=== PATIENT | female | born 1960 | race Caucasian/White ===

== ENCOUNTER → 2017-11-18 16:52 | Outpatient (CLI) | payer BC, SELFPAY ==
--- NOTE | 2017-11-18 16:52 | CT_ITS ---
CT Abdomen And Pelvis W/ Contrast INDICATION: LLQ PAIN, FULLNESS, HX APPY, HYSTERECTOMY, 2 BLADDER SUSPENSIONS COMPARISON: None TECHNIQUE: Axial CT imaging of the abdomen and pelvis with oral and intravenous contrast. Coronal and sagittal reformatted images. Radiation dose optimization technique applied. 100 mL of Isovue-370 given intravenously. FINDINGS: The visualized lung bases are clear. The heart size is normal. The liver, gallbladder, spleen, adrenal glands, and pancreas are unremarkable. The kidneys enhance contrast symmetrically bilaterally and are without evidence of hydronephrosis. A right sacral stimulator is noted in expected position. Oral contrast material is seen in the stomach and nondistended small bowel loops. Colon is nondistended. There is no evidence of sigmoid diverticulosis and no evidence of mesenteric inflammation. There are postsurgical clips noted in the left lower anterior abdominal wall extending to the left groin, possibly related to prior hernia repair. Mild associated fat stranding is noted. There is no abnormal enhancement or fluid collection identified. The osseous structures demonstrate L5-S1 facet arthritic changes with mild anterolisthesis and bilateral neuroforaminal narrowing. CT/Abdomen/Pelvis WITH Contrast IMPRESSION: Postsurgical changes in the left lower anterior abdominal wall with multiple surgical clips and scarring. Correlate for possible prior hernia repair. No abnormal fluid collection. No abnormal findings in the abdominal cavity. at 2118 Reported and signed by: Kajal Wesley MD Electronically Signed: Kajal Wesley MD at 20:17 EST Tel , Service support ,
== END ==
PROVIDERS: Family Provider Family Medicine; PCP Family Medicine; Visit Provider Family Medicine
DX: R10.32 Left lower quadrant pain (principal)
CPT/HCPCS: 74177; Q9967

== ENCOUNTER → 2017-12-02 16:18 | Outpatient (CLI) | payer BC, SELFPAY ==
--- NOTE | 2017-12-02 16:21 | HPBI_ITS ---
MAMMOGRAPHY - BILATERAL SCREENING REASON FOR EXAM: Female, 57 years old. Routine annual screening examination. PERTINENT HISTORY: Non-contributory. Prior right stereotactic breast biopsy. TECHNIQUE: Digital bilateral breast alexis (3D mammographic acquisition) in the CC and MLO projections. 2-D mediolateral oblique (MLO) and craniocaudad (CC) views of both breasts were obtained. CAD: Full Field Digital Mammography with Computer Added Detection was performed. COMPARISON: Comparison is made with prior study dated November 06, 2015 and June 11, 2014. FINDINGS: Breast Composition: There are scattered areas of fibroglandular density. There are no dominant masses or suspicious calcifications. A tissue clip marker is seen in the retroareolar region of the right breast. The previously seen cluster microcalcification is not seen at this time. No other significant abnormalities are identified. HPBI/SCREENING MAMM (CAD), BILAT IMPRESSION: Stable bilateral screening mammogram. Yearly follow-up mammogram recommended. (A) ASSESSMENT CATEGORY: BIRADS Category 2: Benign. A letter regarding these results will be sent to the patient by the facility within 30 days. Approximately 10% of breast cancers are not detected by mammography. A normal mammogram should not delay biopsy of a clinically suspicious abnormality. [id number] Electronically Signed: Kp Lin MD at 8:05 EST Tel [phone], Service support ,
== END ==
PROVIDERS: Family Provider Family Medicine; PCP Family Medicine; Visit Provider Family Medicine
DX: Z12.31 Encounter for screening mammogram for malignant neoplasm of breast (principal)
CPT/HCPCS: 77063; 77067

== ENCOUNTER 2017-12-24 07:28 | Day surgery (SDC) | payer BC, SELFPAY ==
[2017-12-24 07:46] VITALS: BP 178/97; PULSE 69; RESP 14; TEMP 36.6; O2SAT 98; BMI 34.3
[2017-12-24 09:10] VITALS: BP 143/101; BP 178/97; PULSE 59; RESP 16; TEMP 36.2; O2SAT 100
[2017-12-24 09:15] VITALS: BP 152/101; BP 178/97; PULSE 53; RESP 16; O2SAT 98
--- NOTE | 2017-12-24 09:16 | PCM.OPRPT ---
Problem List (1) Screen for colon cancer Status: Acute Report of Operation Date of Procedure: 12/24/17 Pre-Operative Diagnosis: Screening colon cancer Post-Operative Diagnosis: Diverticulosis Surgery/Procedure Performed:: Colonoscopy Description of Procedure: The major risks and benefits associated with the procedure were explained to the patient in detail. The patient verbalized understanding and agreement with the same. The patient was brought to the endoscopy suite. After adequate sedation was achieved, the patient was placed in the left lateral decubitus position and a digital rectal exam was performed. This examination was within normal limits. A well-lubricated colonoscope was then inserted into the rectum and advanced under direct visualization to the level of the cecum. The bowel prep was good. The cecum was identified by both visual and anatomic landmarks. A photograph was taken of the end of the cecum. The scope was then fully withdrawn while examining the color, texture, anatomy and integrity of the mucosa from the cecum to the anal canal. The findings were consistent with normal colonic mucosa. Over 6 minutes were taken to examine the colonic mucosa. Upon reaching the rectum the scope was retroflexed to examine the distal rectal vault. The scope was then straightened and was completely retrieved upon exiting the anal canal and the procedure was terminated. The patient was then transferred to the recovery room in stable condition. Recommendations for follow up: 10 years
[2017-12-24 09:20] VITALS: BP 168/81; BP 178/97; PULSE 51; RESP 16; O2SAT 98
[2017-12-24 09:25] VITALS: BP 157/84; BP 178/97; PULSE 53; RESP 16; TEMP 36.5; O2SAT 98
[2017-12-24 09:28] VITALS: BP 178/97
== END 2017-12-24 10:15 | disposition home or self-care (01) ==
LOC: EN 07:28 → AC 07:29
PROVIDERS: Family Provider Family Medicine; PCP Family Medicine; Visit Provider Surgery
PROC: 0DJD8ZZ Inspection of Lower Intestinal Tract, Via Natural or Artificial Opening Endoscopic (ICD-10-PCS; CPT 45378; principal; 2017-12-24 08:25)
DX: Z12.11 Encounter for screening for malignant neoplasm of colon (principal); K57.30 Diverticulosis of large intestine without perforation or abscess without bleeding; R10.32 Left lower quadrant pain; N36.42 Intrinsic sphincter deficiency (ISD); Z96.0 Presence of urogenital implants; M19.90 Unspecified osteoarthritis, unspecified site; G43.909 Migraine, unspecified, not intractable, without status migrainosus; Z79.899 Other long term (current) drug therapy
CPT/HCPCS: 45378; J7120

== ENCOUNTER → 2018-04-25 15:40 | Outpatient (CLI) | payer BC, SELFPAY ==
--- NOTE | 2018-04-25 15:45 | RAD_ITS ---
STUDY: X-RAY - RIGHT KNEE REASON FOR EXAM: Female, 58 years old. Knee pain TECHNIQUE: 4 view(s) of the knee. COMPARISON: None. FINDINGS: Normal visualized distal femur. Normal visualized proximal tibia and fibula. Normal proximal tibiofibular articulation. Normal medial femorotibial compartment. Normal lateral femorotibial compartment. Normal patellofemoral articulation. The soft tissue structures are unremarkable. RAD/Knee 4 or More Views IMPRESSION: Normal x-ray examination of the knee. Electronically Signed: Yadi Black MD at 7:41 EDT Tel , Service support ,
== END ==
PROVIDERS: Family Provider Family Medicine; PCP Family Medicine; Visit Provider Family Medicine
DX: M25.562 Pain in left knee (principal)
CPT/HCPCS: 73564

== ENCOUNTER → 2018-05-13 14:36 | Outpatient (CLI) | payer BC, SELFPAY | PROVIDERS: Family Provider Family Medicine; PCP Family Medicine; Visit Provider Family Medicine | DX: M79.662 Pain in left lower leg (principal) | CPT/HCPCS: 93971 ==

== ENCOUNTER → 2019-02-09 15:20 | Outpatient (CLI) | payer BC, SELFPAY ==
--- NOTE | 2019-02-09 15:24 | BI_ITS ---
MAMMOGRAPHY - BILATERAL SCREENING REASON FOR EXAM: Female, 58 years old. Routine annual screening examination. PERTINENT HISTORY: Non-contributory. Prior left stereotactic breast biopsy TECHNIQUE: Digital bilateral breast alexis (3D mammographic acquisition) in the CC and MLO projections. 2-D mediolateral oblique (MLO) and craniocaudad (CC) views of both breasts were obtained. CAD: Full Field Digital Mammography with Computer Added Detection was performed. COMPARISON: Comparison is made with prior study dated December 02, 2017 and November 14, 2015. FINDINGS: Breast Composition: There are scattered areas of fibroglandular density. There are no dominant masses or suspicious calcifications. A tissue clip marker is seen in the retroareolar region of the right breast. No other significant abnormalities are identified. There has been no significant change since the prior study. BI/SCREENING MAMM (CAD), BILAT IMPRESSION: Stable bilateral screening mammogram. Yearly follow-up mammogram recommended. (A) ASSESSMENT CATEGORY: BIRADS Category 2: Benign. A letter regarding these results will be sent to the patient by the facility within 30 days. Approximately 10% of breast cancers are not detected by mammography. A normal mammogram should not delay biopsy of a clinically suspicious abnormality. [id number] Electronically Signed: Kp Lin, at 8:43 EDT , Service support ,
== END ==
PROVIDERS: Family Provider Family Medicine; PCP Family Medicine; Referring Provider Family Medicine; Visit Provider Family Medicine
DX: Z12.31 Encounter for screening mammogram for malignant neoplasm of breast (principal)
CPT/HCPCS: 77063; 77067

== ENCOUNTER → 2019-12-02 07:23 | Outpatient (CLI) | payer OTHER, SELFPAY ==
[2019-12-02 08:25] LABS: Anion Gap 5 (5-15); BUN 20 mg/dL (7-18); BUN/Creat Ratio 24.2 RATIO (10-20); Calcium,Total 9.1 mg/dL (8.5-10.1); Chloride 106 mmol/L (98-107); Cholesterol 195 mg/dL (200); Creatinine, Serum 0.82 mg/dL (0.55-1.02); EST Glomerular Filtration Rate 75 mL/min (>60); Est Glom Filt Rate - Afr Amer 91 mL/min (>60); Glucose 92 mg/dL (74-106); High Density Lipoprotein 73 mg/dL; Potassium 4.2 mmol/L (3.5-5.1); Sodium Level 141 mmol/L (136-145); Thyroid Stim Hormone (TSH) 1.73 uIU/mL (0.358-3.74); Triglycerides 153 mg/dL; Very Low Density Lipoprotein 31 mg/dL (5-40)
== END ==
PROVIDERS: PCP Family Medicine; Referring Provider Family Medicine; Visit Provider Family Medicine
DX: Z13.220 Encounter for screening for lipoid disorders (principal); Z13.1 Encounter for screening for diabetes mellitus; N95.1 Menopausal and female climacteric states
CPT/HCPCS: 36415; 80048; 80061; 84443

== ENCOUNTER → 2020-09-11 15:49 | Outpatient (CLI) | payer OTHER, SELFPAY ==
--- NOTE | 2020-09-11 15:51 | BI_ITS ---
MAMMOGRAPHY - BILATERAL SCREENING REASON FOR EXAM: Female, 60 years old. Routine annual screening examination. PERTINENT HISTORY: Non-contributory. Remote left stereotactic breast biopsy. TECHNIQUE: Digital bilateral breast ronit (3D mammographic acquisition) in the CC and MLO projections. 2-D mediolateral oblique (MLO) and craniocaudad (CC) views of both breasts were obtained. CAD: Full Field Digital Mammography with Computer Added Detection was performed. COMPARISON: Comparison is made with prior study dated 02/09/2019 and 12/02/2017. FINDINGS: Breast Composition: The breasts are almost entirely fatty. There are no dominant masses or suspicious calcifications. A tissue clip marker is seen in the retroareolar region of the right breast. Stable small benign appearing bilateral axillary lymph nodes. No other significant abnormalities are identified. There has been no significant change since the prior study. BI/SCREEN MAMM (CAD) W/RONIT BILAT IMPRESSION: Stable bilateral screening mammogram. Yearly follow-up mammogram recommended. (A) ASSESSMENT CATEGORY: BIRADS Category 2: Benign. A letter regarding these results will be sent to the patient by the facility within 30 days. Approximately 10% of breast cancers are not detected by mammography. A normal mammogram should not delay biopsy of a clinically suspicious abnormality. [id number] Electronically Signed: Kp Lin, at 8:34 EST , Service support ,
== END ==
PROVIDERS: PCP Family Medicine; Referring Provider Family Medicine; Visit Provider Family Medicine
DX: Z12.31 Encounter for screening mammogram for malignant neoplasm of breast (principal)
CPT/HCPCS: 77063; 77067

== ENCOUNTER → 2020-12-12 08:27 | Outpatient (CLI) | payer OTHER, SELFPAY ==
[2020-12-12 10:19] LABS: Absolute Lymphocyte Count 1.91 X10^3/uL (0.83-4.51); Absolute Neutrophil Count 2.5 X10^3/uL (2.0-7.7); Basophil# 0.01 X10^3/uL; Basophil% 0.2 % (0-1); Hematocrit 44.9 % (37-47); Lymphocyte # 1.91 X10^3/ul (4.0); Lymphocyte % 39.5 % (19-41); Mean Corp Hgb Conc 31.2 g/dL (32-36); Mean Corpuscular Hgb 27.5 pg (27.0-32.0); Monocyte# 0.39 X10^3/uL; Monocyte% 8.1 % (0-10); NRBC Flagged by Analyzer 0 % (0-5); Neutrophil % 51.8 % (47-70); Platelet Count 318 K/mm3 (150-450); RBC Distribution Width CV 13.5 % (11.6-14.6); White Blood Count 4.8 K/mm3 (4.4-11.0)
[2020-12-12 10:39] LABS: ALB/GLOB Ratio 1.1 RATIO (0.9-2.4); AST(SGOT) 16 U/L (15-37); Alanine Aminotransfer ALT/SGPT 21 U/L (13-56); Albumin, Serum 3.8 g/dL (3.2-5.0); Alkaline Phosphatase 100 U/L (45-117); Anion Gap 5 (5-15); BUN 26 mg/dL (7-18); BUN/Creat Ratio 31.7 RATIO (10-20); Calcium,Total 9.3 mg/dL (8.5-10.1); Chloride 106 mmol/L (98-107); Cholesterol 169 mg/dL (200); Creatinine, Serum 0.82 mg/dL (0.55-1.02); EST Glomerular Filtration Rate 75 mL/min (>60); Est Glom Filt Rate - Afr Amer 91 mL/min (>60); Globulin 3.4 g/dL (2.2-4.2); Glucose 109 mg/dL (74-106); High Density Lipoprotein 69 mg/dL; Potassium 4.1 mmol/L (3.5-5.1); Protein, Total 7.2 g/dL (6.4-8.2); Sodium Level 142 mmol/L (136-145); Triglycerides 90 mg/dL; Very Low Density Lipoprotein 18 mg/dL (5-40)
== END ==
PROVIDERS: PCP Family Medicine; Referring Provider Family Medicine; Visit Provider Family Medicine
DX: I10 Essential (primary) hypertension (principal)
CPT/HCPCS: 36415; 80053; 80061; 85025

== ENCOUNTER → 2021-04-10 08:56 | Outpatient (CLI) | payer OTHER, SELFPAY ==
[2021-04-10 10:19] LABS: Hemoglobin A1c 5.7 % (3.8-5.6)
== END ==
PROVIDERS: PCP Family Medicine; Referring Provider Family Medicine; Visit Provider Family Medicine
DX: R73.01 Impaired fasting glucose (principal)
CPT/HCPCS: 36415; 83036

== ENCOUNTER → 2021-08-07 10:19 | Outpatient (CLI) | payer OTHER, SELFPAY ==
[2021-08-07 10:21] LABS: Bacteria 0 SEEN /hpf (None Seen); Mucous, Urine 0 SEEN /hpf (<or=2+); Red Blood Cells-Urine 0 SEEN /hpf (0-5); White Blood Cells 0 SEEN /hpf (0-5)
[2021-08-07 12:17] LABS: Absolute Lymphocyte Count 1.58 X10^3/uL (0.83-4.51); Absolute Neutrophil Count 2.3 X10^3/uL (2.0-7.7); Basophil# 0.05 X10^3/uL; Basophil% 1.1 % (0-1); Eosinophil# 0.12 X10^3/uL; Eosinophils% 2.7 % (0-5); Hematocrit 43.8 % (37-47); Hemoglobin 14.3 g/dL (12.0-15.0); Lymphocyte # 1.58 X10^3/ul (0.83-4.51); Lymphocyte % 35.8 % (19-41); Mean Corp Hgb Conc 32.6 g/dL (32-36); Mean Corpuscular Hgb 28.6 pg (27.0-32.0); Mean Corpuscular Volume 87.6 fL (81-99); Mean Platelet Vol. 8.7 fl (6.2-12.0); Monocyte# 0.38 X10^3/uL; Monocyte% 8.6 % (0-10); NRBC Flagged by Analyzer 0 % (0-5); Neutrophil # 2.26 X10^3/uL (2.7-7.7); Neutrophil % 51.3 % (47-70); Platelet Count 300 K/mm3 (150-450); RBC Distribution Width CV 14.3 % (11.6-14.6); RBC Distribution Width SD 46.4 fl (35.1-43.9); White Blood Count 4.4 K/mm3 (4.4-11.0)
[2021-08-07 12:22] LABS: Color, Urine Yellow (Yellow); Glucose, Dipstick Normal (Normal); Ketone-Dipstick Negative (Negative); Leukocyte Esterase-Dipstick Negative /ul (Negative); Nitrite-Dipstick Negative (Negative); Occult Blood-Urine Negative /ul (Negative); Protein-Dipstick Negative (Negative); Urine Bilirubin Dipstick Negative (Negative); Urine Clarity Sl. Cloudy (Clear); Urine Urobilinogen Normal (Normal)
[2021-08-07 12:28] LABS: Squamous Epithelial Cells - UA 0-5 SEEN /hpf (5-10)
[2021-08-07 12:38] LABS: ALB/GLOB Ratio 0.9 RATIO (0.9-2.4); AST(SGOT) 16 U/L (15-37); Alanine Aminotransfer ALT/SGPT 19 U/L (13-56); Albumin, Serum 3.7 g/dL (3.2-5.0); Alkaline Phosphatase 170 U/L (45-117); Anion Gap 7 (5-15); BUN 23 mg/dL (7-18); BUN/Creat Ratio 25.9 RATIO (10-20); Calcium,Total 8.9 mg/dL (8.5-10.1); Chloride 101 mmol/L (98-107); Cholesterol 194 mg/dL (200); Creatinine, Serum 0.89 mg/dL (0.55-1.02); EST Glomerular Filtration Rate 68 mL/min (>60); Est Glom Filt Rate - Afr Amer 83 mL/min (>60); Glucose 87 mg/dL (74-106); High Density Lipoprotein 76 mg/dL; Potassium 3.7 mmol/L (3.5-5.1); Protein, Total 7.7 g/dL (6.4-8.2); Sodium Level 140 mmol/L (136-145); Thyroid Stim Hormone (TSH) 1.33 uIU/mL (0.358-3.74); Triglycerides 74 mg/dL; Very Low Density Lipoprotein 15 mg/dL (5-40)
[2021-08-07 12:45] LABS: Vitamin D,25 Hydroxy 22.5 ng/mL
[2021-08-07 13:17] LABS: Hemoglobin A1c 5.8 % (3.8-5.6)
[2021-08-11 14:26] LABS: GGTP 9 U/L (5-55)
== END ==
PROVIDERS: PCP Family Medicine; Referring Provider Family Medicine; Visit Provider Family Medicine
DX: R74.8 Abnormal levels of other serum enzymes (principal); R73.01 Impaired fasting glucose; I10 Essential (primary) hypertension; E55.9 Vitamin D deficiency, unspecified
CPT/HCPCS: 36415; 80053; 80061; 81001; 82306; 82977; 83036; 84443; 85025

== ENCOUNTER 2021-09-29 09:45 | Outpatient (CLI) | payer OTHER, SELFPAY ==
--- NOTE | 2021-09-29 09:48 | US_ITS ---
STUDY: ABDOMINAL ULTRASOUND - left lower QUADRANT REASON FOR VISIT: Female, 61 years old LLQ TENDER TECHNIQUE: Ultrasound evaluation of the right upper quadrant was performed with real-time and static amanda-scale imaging. TECHNICAL QUALITY: Adequate. COMPARISON: None. FINDINGS: The left lower quadrant was examined by ultrasound. No sonographic and amount is seen. US/Abdomen Limited IMPRESSION: No sonographic abnormality is seen in the left lower quadrant. Electronically Signed: Kp Lin MD at 10:52 EST , Service support ,
== END 2021-09-29 23:59 | disposition short-term general hospital (02) ==
LOC: US 09:47
PROVIDERS: PCP Family Medicine; Referring Provider Family Medicine; Visit Provider Family Medicine
DX: R19.04 Left lower quadrant abdominal swelling, mass and lump (principal)
CPT/HCPCS: 76705

== ENCOUNTER 2021-10-02 07:36 | Outpatient (CLI) | payer OTHER, SELFPAY ==
--- NOTE | 2021-10-02 07:38 | BI_ITS ---
MAMMOGRAPHY - BILATERAL SCREENING REASON FOR EXAM: Female, 61 years old. Routine annual screening examination. PERTINENT HISTORY: Non-contributory. Prior left stereotactic breast biopsy. TECHNIQUE: Digital bilateral breast ronit (3D mammographic acquisition) in the CC and MLO projections. 2-D mediolateral oblique (MLO) and craniocaudad (CC) views of both breasts were obtained. CAD: Full Field Digital Mammography with Computer Added Detection was performed. COMPARISON: Comparison is made with prior examination dated 09/11/2020 and 02/09/2019. FINDINGS: Breast Composition: The breasts are almost entirely fatty. There are no dominant masses or suspicious calcifications. A tissue clip marker is seen in the retroareolar region of the right breast stable small benign-appearing bilateral axillary No other significant abnormalities are identified. There has been no significant change since the prior study. BI/SCRN MAMM (CAD)W/RONIT BILAT IMPRESSION: Stable bilateral screening mammogram. Yearly follow-up mammogram recommended. (A) ASSESSMENT CATEGORY: BIRADS Category 2: Benign. A letter regarding these results will be sent to the patient by the facility within 30 days. Approximately 10% of breast cancers are not detected by mammography. A normal mammogram should not delay biopsy of a clinically suspicious abnormality. [id number] Electronically Signed: Kp Lin MD at 8:30 EST , Service support ,
== END 2021-10-02 23:59 | disposition short-term general hospital (02) ==
LOC: OPBI 07:36
PROVIDERS: PCP Family Medicine; Referring Provider Family Medicine; Visit Provider Family Medicine
DX: Z12.31 Encounter for screening mammogram for malignant neoplasm of breast (principal)
CPT/HCPCS: 77063; 77067

== ENCOUNTER 2022-01-09 09:46 | Outpatient (CLI) | payer OTHER, SELFPAY ==
[2022-01-09 11:57] LABS: Absolute Lymphocyte Count 1.46 X10^3/uL (0.83-4.51); Basophil# 0.04 X10^3/uL; Eosinophils% 4.8 % (0-5); Hemoglobin 13.7 g/dL (12.0-15.0); Lymphocyte # 1.46 X10^3/ul (0.83-4.51); Lymphocyte % 35.3 % (19-41); Mean Corp Hgb Conc 33.4 g/dL (32-36); Mean Corpuscular Hgb 28.7 pg (27.0-32.0); Mean Corpuscular Volume 85.8 fL (81-99); Mean Platelet Vol. 9.1 fl (6.2-12.0); Monocyte% 9.7 % (0-10); NRBC Flagged by Analyzer 0 % (0-5); Neutrophil # 2.03 X10^3/uL (2.7-7.7); Platelet Count 276 K/mm3 (150-450); RBC Distribution Width CV 13.4 % (11.6-14.6); Red Blood Count 4.78 M/mm3 (4.2-5.4); White Blood Count 4.1 K/mm3 (4.4-11.0)
[2022-01-09 12:16] LABS: Hemoglobin A1c 5.8 % (3.8-5.6)
[2022-01-09 12:19] LABS: Vitamin B12 388 pg/mL (211-911); Vitamin D,25 Hydroxy 36.5 ng/mL
[2022-01-09 12:26] LABS: ALB/GLOB Ratio 1.1 RATIO (0.9-2.4); AST(SGOT) 19 U/L (15-37); Alanine Aminotransfer ALT/SGPT 25 U/L (13-56); Albumin, Serum 3.7 g/dL (3.2-5.0); Alkaline Phosphatase 102 U/L (45-117); Anion Gap 5 (5-15); BUN 17 mg/dL (7-18); BUN/Creat Ratio 23.9 RATIO (10-20); Chloride 105 mmol/L (98-107); Cholesterol 155 mg/dL (200); Creatinine, Serum 0.71 mg/dL (0.55-1.02); EST Glomerular Filtration Rate 88 mL/min (>60); Est Glom Filt Rate - Afr Amer 107 mL/min (>60); Globulin 3.5 g/dL (2.2-4.2); Glucose 91 mg/dL (74-106); High Density Lipoprotein 75 mg/dL; Potassium 3.4 mmol/L (3.5-5.1); Protein, Total 7.2 g/dL (6.4-8.2); Sodium Level 141 mmol/L (136-145); T4 Free Direct 1.01 ng/dL (0.76-1.46); Thyroid Stim Hormone (TSH) 1.02 uIU/mL (0.358-3.74); Triglycerides 68 mg/dL; Very Low Density Lipoprotein 14 mg/dL (5-40)
== END 2022-01-09 23:59 | disposition home or self-care (01) ==
LOC: MFPLAB 09:48
PROVIDERS: PCP Family Medicine; Referring Provider Family Medicine; Visit Provider Family Medicine
DX: I10 Essential (primary) hypertension (principal); E55.9 Vitamin D deficiency, unspecified; R73.01 Impaired fasting glucose; R53.83 Other fatigue
CPT/HCPCS: 36415; 80053; 80061; 82306; 82607; 83036; 84439; 84443; 85025

== ENCOUNTER → 2022-04-21 | Outpatient (CLI) | payer OTHER, SELFPAY ==
[2022-04-27 10:52] LABS: HPV Reflexed? NOT INDICATED
== END | disposition home or self-care (01) ==
PROVIDERS: PCP Family Medicine; Referring Provider Family Medicine; Visit Provider Family Medicine
DX: Z12.4 Encounter for screening for malignant neoplasm of cervix (principal)
CPT/HCPCS: 88175; G0145

== ENCOUNTER → 2022-06-04 | Outpatient (CLI) | payer OTHER, SELFPAY ==
[2022-06-04 08:44] LABS: Mucous, Urine 0 SEEN /hpf (<or=2+); Red Blood Cells-Urine 0 SEEN /hpf (0-5); White Blood Cells 0 SEEN /hpf (0-5)
[2022-06-04 09:59] LABS: Color, Urine Yellow (Yellow); Glucose, Dipstick Normal (Normal); Ketone-Dipstick Negative (Negative); Leukocyte Esterase-Dipstick Negative /ul (Negative); Nitrite-Dipstick Negative (Negative); Occult Blood-Urine Negative /ul (Negative); Protein-Dipstick Negative (Negative); Urine Bilirubin Dipstick Negative (Negative); Urine Clarity Clear (Clear); Urine Urobilinogen Normal (Normal)
[2022-06-04 10:06] LABS: Absolute Lymphocyte Count 1.69 X10^3/uL (0.83-4.51); Absolute Neutrophil Count 2.1 X10^3/uL (2.0-7.7); Basophil# 0.04 X10^3/uL; Basophil% 0.9 % (0-1); Eosinophil# 0.17 X10^3/uL; Eosinophils% 3.9 % (0-5); Hematocrit 42.8 % (37-47); Lymphocyte # 1.69 X10^3/ul (0.83-4.51); Lymphocyte % 38.6 % (19-41); Mean Corp Hgb Conc 32.7 g/dL (32-36); Mean Corpuscular Hgb 28.3 pg (27.0-32.0); Mean Corpuscular Volume 86.5 fL (81-99); Mean Platelet Vol. 9.1 fl (6.2-12.0); Monocyte# 0.32 X10^3/uL; Monocyte% 7.3 % (0-10); NRBC Flagged by Analyzer 0 % (0-5); Neutrophil # 2.14 X10^3/uL (2.7-7.7); Neutrophil % 48.8 % (47-70); Platelet Count 245 K/mm3 (150-450); RBC Distribution Width CV 13.7 % (11.6-14.6); RBC Distribution Width SD 43.2 fl (35.1-43.9); Red Blood Count 4.95 M/mm3 (4.2-5.4); White Blood Count 4.4 K/mm3 (4.4-11.0)
[2022-06-04 10:12] LABS: AST(SGOT) 11 U/L (15-37); Alanine Aminotransfer ALT/SGPT 21 U/L (13-56); Albumin, Serum 3.7 g/dL (3.2-5.0); Alkaline Phosphatase 107 U/L (45-117); Anion Gap 7 (5-15); BUN 18 mg/dL (7-18); BUN/Creat Ratio 22.8 RATIO (10-20); Calcium,Total 9.2 mg/dL (8.5-10.1); Chloride 105 mmol/L (98-107); Cholesterol 176 mg/dL (200); Creatinine, Serum 0.79 mg/dL (0.55-1.02); EST Glomerular Filtration Rate 78 mL/min (>60); Est Glom Filt Rate - Afr Amer 95 mL/min (>60); Globulin 3.6 g/dL (2.2-4.2); Glucose 112 mg/dL (74-106); High Density Lipoprotein 76 mg/dL; Potassium 3.5 mmol/L (3.5-5.1); Protein, Total 7.3 g/dL (6.4-8.2); Sodium Level 140 mmol/L (136-145); Triglycerides 105 mg/dL; Very Low Density Lipoprotein 21 mg/dL (5-40)
[2022-06-04 10:14] LABS: Bacteria 1+ /hpf (None Seen); Squamous Epithelial Cells - UA 5-10 SEEN /hpf (5-10)
[2022-06-04 10:17] LABS: Vitamin D,25 Hydroxy 27.7 ng/mL
== END | disposition home or self-care (01) ==
LOC: MFPLAB 08:42
PROVIDERS: PCP Family Medicine; Referring Provider Family Medicine; Visit Provider Family Medicine
DX: I10 Essential (primary) hypertension (principal); R73.01 Impaired fasting glucose; E55.9 Vitamin D deficiency, unspecified
CPT/HCPCS: 36415; 80053; 80061; 81001; 82306; 83036; 85025

== ENCOUNTER 2022-08-17 12:10 | Outpatient (CLI) | payer OTHER, SELFPAY | END 2022-08-17 23:59 | disposition home or self-care (01) | LOC: LABSPEC 12:13 | PROVIDERS: PCP Family Medicine; Visit Provider Family Medicine | DX: N39.0 Urinary tract infection, site not specified (principal) | CPT/HCPCS: 87086; 87088 ==

== ENCOUNTER → 2022-09-29 | Outpatient (CLI) | payer OTHER, SELFPAY ==
[2022-09-29 09:45] LABS: Mucous, Urine 0 SEEN /hpf (<or=2+); Red Blood Cells-Urine 0 SEEN /hpf (0-5)
[2022-09-29 12:20] LABS: Absolute Lymphocyte Count 1.54 X10^3/uL (0.83-4.51); Absolute Neutrophil Count 2.5 X10^3/uL (2.0-7.7); Basophil# 0.04 X10^3/uL; Basophil% 0.9 % (0-1); Eosinophil# 0.17 X10^3/uL; Eosinophils% 3.7 % (0-5); Hematocrit 43.3 % (37-47); Hemoglobin 13.9 g/dL (12.0-15.0); Lymphocyte # 1.54 X10^3/ul (0.83-4.51); Lymphocyte % 33.3 % (19-41); Mean Corp Hgb Conc 32.1 g/dL (32-36); Mean Corpuscular Hgb 28.1 pg (27.0-32.0); Mean Corpuscular Volume 87.7 fL (81-99); Mean Platelet Vol. 9.1 fl (6.2-12.0); Monocyte# 0.38 X10^3/uL; Monocyte% 8.2 % (0-10); NRBC Flagged by Analyzer 0 % (0-5); Neutrophil # 2.49 X10^3/uL (2.7-7.7); Neutrophil % 53.7 % (47-70); Platelet Count 254 K/mm3 (150-450); RBC Distribution Width SD 45.1 fl (35.1-43.9); Red Blood Count 4.94 M/mm3 (4.2-5.4); White Blood Count 4.6 K/mm3 (4.4-11.0)
[2022-09-29 12:22] LABS: Glucose, Dipstick Normal (Normal); Ketone-Dipstick Negative (Negative); Leukocyte Esterase-Dipstick 25 /ul (Negative); Nitrite-Dipstick Negative (Negative); Occult Blood-Urine Negative /ul (Negative); Protein-Dipstick Negative (Negative); Specific Gravity, Urine 1.025 (1.002-1.030); Urine Bilirubin Dipstick Negative (Negative); Urine Urobilinogen Normal (Normal)
[2022-09-29 12:23] LABS: Bacteria 1+ /hpf (None Seen); Color, Urine Yellow (Yellow); Squamous Epithelial Cells - UA 0-5 SEEN /hpf (5-10); Urine Clarity Clear (Clear); White Blood Cells 10-25 SEEN /hpf (0-5)
[2022-09-29 12:43] LABS: Vitamin D,25 Hydroxy 31.5 ng/mL
[2022-09-29 12:50] LABS: ALB/GLOB Ratio 1.3 RATIO (0.9-2.4); AST(SGOT) 14 U/L (15-37); Alanine Aminotransfer ALT/SGPT 22 U/L (13-56); Albumin, Serum 3.8 g/dL (3.2-5.0); Alkaline Phosphatase 120 U/L (45-117); Anion Gap 6 (5-15); BUN 30 mg/dL (7-18); BUN/Creat Ratio 36.3 RATIO (10-20); Calcium,Total 9.1 mg/dL (8.5-10.1); Chloride 105 mmol/L (98-107); Cholesterol 221 mg/dL (200); Creatinine, Serum 0.83 mg/dL (0.55-1.02); EST Glomerular Filtration Rate 74 mL/min (>60); Est Glom Filt Rate - Afr Amer 90 mL/min (>60); Glucose 106 mg/dL (74-106); High Density Lipoprotein 69 mg/dL; Potassium 4.3 mmol/L (3.5-5.1); Protein, Total 6.8 g/dL (6.4-8.2); Sodium Level 140 mmol/L (136-145); Thyroid Stim Hormone (TSH) 2.09 uIU/mL (0.358-3.74); Triglycerides 201 mg/dL; Very Low Density Lipoprotein 40 mg/dL (5-40)
== END | disposition home or self-care (01) ==
LOC: MFPLAB 09:42
PROVIDERS: PCP Family Medicine; Referring Provider Family Medicine; Visit Provider Family Medicine
DX: I10 Essential (primary) hypertension (principal); R73.01 Impaired fasting glucose; E55.9 Vitamin D deficiency, unspecified
CPT/HCPCS: 36415; 80053; 80061; 81001; 82306; 83036; 84443; 85025

== ENCOUNTER 2023-04-07 06:28 | Day surgery (SDC) | payer OTHER, SELFPAY ==
[2023-04-07] VITALS (8 sets, daily range): BP systolic 112–146; BP diastolic 72–98; PULSE 57–68; RESP 16–18; TEMP 36.3–36.7; O2SAT 91–98; BMI 37.0
[2023-04-07] MEDS: Lactated Ringers 1,000 ML 15 ML IV (07:20)
--- NOTE | 2023-04-07 07:52 | PCM.HP.STD ---
HPI - General HPI Narrative YANCI RHODES, is a 63 F who presents for stage II interstim therapy PFSH Medical History (Updated 03/31/23 @ 09:20 by Francia Velasquez) Alcohol use Hypertension Intrinsic (urethral) sphincter deficiency (ISD) Migraine headache Non-smoker Osteoarthritis Post-menopausal Shortness of breath on exertion Wears glasses Home Medications dmthumqoyu-gvttlub-pughbisg 50 mg-325 mg-40 mg capsule 1 ea PO Q4H PRN migraines 09/10/17 [History Last Taken 04/06/23] cholecalciferol (vitamin D3) 125 mcg (5,000 unit) capsule 5,000 unit PO DAILY 12/22/17 [History Last Taken 04/06/23] hydrochlorothiazide 25 mg tablet 25 mg PO DAILY 03/31/23 [History Last Taken Unknown] oxyBUTYnin chloride 10 mg PO QHS 03/31/23 [History Last Taken 04/06/23] ciprofloxacin HCl 250 mg tablet 250 mg PO BID #10 tabs 04/07/23 [Rx Last Taken Unknown] oxycodone 5 mg capsule 5 mg PO Q6H PRN pain 3 days #12 caps 04/07/23 [Rx Last Taken Unknown] Allergy/AdvReac Type Severity Reaction Status Date / Time amoxicillin Allergy Hives Verified 03/31/23 09:11 Penicillins Allergy Hives Verified 03/31/23 09:11 hydrocodone [From Vicodin] AdvReac Other Verified 03/31/23 09:11 Family History Father Hypertension Mother Hypertension Surgical History (Updated 03/31/23 @ 09:20 by Francia Velasquez) Hx of colonoscopy S/P bladder repair S/P carpal tunnel release S/P hernia repair S/P hysterectomy S/P tubal ligation Social History (Updated 01/20/18 @ 09:[address] Stanton Lynn MD) Smoking Status: Never smoker Vital Signs Vital Signs Vital Signs: 04/07/23 07:12 04/07/23 07:12 Temperature 98.0 F Temperature Source Temporal Pulse Rate 68 Respiratory Rate 16 Respiratory Pattern Normal Blood Pressure 129/98 H Blood Pressure Mean 108 Blood Pressure Source Monitor Blood Pressure Position Semi-Fowlers Blood Pressure Location Right Arm Pulse Ox 95 Oxygen Delivery Method Room Air Weight Weight: 92 kg Body Mass Index (BMI) 37.0
--- NOTE | 2023-04-07 07:53 | DCINST_ITS ---
Discharge Instructions Diet Discharge Diet: No restrictions Activity Discharge Activity: Return to Normal Activity Dressing / Incision Cleanse incision/area with: Keep Dressing Clean & Dry Follow Up Care Please Follow Up With: Drake Thomas MD When: 3 - 4 weeks Test Results: Test results from this visit will be discussed in further detail at your follow- up appointment, if applicable. Discharge Plan Admission Primary Reason for Your Visit: Stage II interstim therapy Attending Provider: Drake Thomas Primary Care Provider: Raffy Rhodes Discharge Orders/Prescriptions Prescriptions: New ciprofloxacin HCl 250 mg tablet 250 mg PO BID Qty: 10 0RF oxycodone 5 mg capsule 5 mg PO Q6H PRN (Reason: pain) 3 Days Qty: 12 0RF Continued aqsdrsidou-fmxzvjb-xghcovxx 1 EACH capsule 1 ea PO Q4H PRN (Reason: migraines) cholecalciferol (vitamin D3) 5,000 UNIT capsule 5,000 unit PO DAILY hydrochlorothiazide 25 mg tablet 25 mg PO DAILY oxyBUTYnin chloride 10 mg PO QHS Referrals / Follow Up: Raffy Rhodes MD [Primary Care Provider] - Disposition Disposition (needs filled in before D/C Order can be placed): Home, Self Care
[2023-04-07] MEDS: Lidocaine 1% (30 ml sdv) 30 ML Vial (08:26)
--- NOTE | 2023-04-07 08:34 | PCM.OPRPT ---
Report of Operation Date of Procedure: 04/07/23 Pre-Operative Diagnosis: Urge incontinence Post-Operative Diagnosis: The same Surgery/Procedure Performed:: Stage II interstim therapy Description of Surgical Findings:: The patient presents to the operating room for placement of stage II interstim therapuy therapy. Patient's battery from the prior placement had worn out and on checking it in interrogating with the device. Battery life had ended so today we plan to replace the generator with a stage II implant. The patient understands these is no guarantees that in the future the InterStim therapy will keep working to the patient's satisfaction and its always possible and it may need to have a surgical revision, change in implant, possible revision or removal of implant. We also talk about the risks of pain with stimulation, bleeding and infection or any injury to nerves or bony structures and the tailbone area. After reviewing all this with the patient in the preoperative area she signed the consent form and we proceeded with stage II interstim therapy implant. Patient was brought back to the operating room and placed supine on the table and then transferred to facedown the table and underwent sedation with comfort hugging a pillow. Patient's lower back was prepped and draped in usual sterile fashion, I then palpated the bony landmarks identify the tailbone the sacrum and the pocket area was identified where the lead business analyst would be implanted and also the lead. The temporary lead was then cut off from the Bluetooth device. We made an incision over the pocket and remove the temporary extension from the permanent lead and the suture that was holding the temporary extension was removed. The end of the permanent lead was inspected and there was no signs of any damage and was cleaned thoroughly. We then brought over the generator from the kit. After this was confirmed then pocket opened up to allow for the placement of the generator and the patient's lateral side. Then the generator was opened and I made sure I cleaned the lead completely I attached the lead to the generator use the screwdriver provided in the kit to then secure the bolt secure the lead to the generator prior to doing this again checked the lead 0, 1, 2, 3 and there was still good stimulation at all sites. I then placed the lead into the generator and the generator was put into the pocket that was created. I made sure that the generator was placed with InterStim labeling side up and was oriented appropriately. I then checked for impedance using the [employer] rep had the device checked in the impedance was normal with no abnormal impedance and all leads in all 4-lead sites were programmed and responded normally. The generator was then programmed to ensure good proper stimulation of the InterStim device this was done in the operating room, after complex programming was completed we finished with fluoroscopy I then closed the insertion site with subcuticular stitches and Steri-Strips and bandages and then closed the pocket with subcuticular stitches and Steri-Strips and bandages. The patient's anesthetic was reversed patient was taken back to the recovery room in stable condition and further training and education will be given to the patient regarding how to use the new InterStim therapy. CPT codes: 70604 - Batterry Generator placement Surgeon: Drake Thomas Type of Anesthesia: General Admit VTE Documentation VTE Present on Admission: No VTE Mechan Device Prophylaxis: SCD's VTE Pharm Prophylaxis ordered?: No
== END 2023-04-07 10:12 | disposition home or self-care (01) ==
LOC: SDC 06:28 → AC 06:30
PROVIDERS: PCP Family Medicine; Referring Provider Urology; Visit Provider Urology
PROC: (CPT 64590; principal; 2023-04-07 07:50)
DX: Z45.42 Encounter for adjustment and management of neurostimulator (principal); N39.41 Urge incontinence; R35.0 Frequency of micturition; I10 Essential (primary) hypertension; Z79.899 Other long term (current) drug therapy
CPT/HCPCS: 64590; 00300; J7120; C1767; J2405

== ENCOUNTER → 2023-04-30 | Outpatient (CLI) | payer OTHER, SELFPAY ==
--- NOTE | 2023-04-30 13:39 | BI_ITS ---
MAMMOGRAPHY - BILATERAL SCREENING REASON FOR EXAM: Female, 63 years old. Routine annual screening examination. PERTINENT HISTORY: Non-contributory. History of prior left stereotactic breast biopsy. TECHNIQUE: Digital bilateral breast ronit (3D mammographic acquisition) in the CC and MLO projections. 2-D mediolateral oblique (MLO) and craniocaudad (CC) views of both breasts were obtained. CAD: Full Field Digital Mammography with Computer Added Detection was performed. COMPARISON: Comparison is made with prior study dated October 02, 2021 and September 11, 2020. FINDINGS: Breast Composition: The breasts are almost entirely fatty. There are no dominant masses or suspicious calcifications. A tissue clip marker is once again seen in the retroareolar region of the right breast. Stable small benign appearing bilateral axillary nodes. No other significant abnormalities are identified. There has been no significant change since the prior study. BI/SCRN MAMM (CAD)W/ORNIT BILAT IMPRESSION: Stable bilateral screening mammogram. Yearly follow-up mammogram recommended. (A) ASSESSMENT CATEGORY: BIRADS Category 2: Benign. A letter regarding these results will be sent to the patient by the facility within 30 days. Approximately 10% of breast cancers are not detected by mammography. A normal mammogram should not delay biopsy of a clinically suspicious abnormality. [id number] Electronically Signed: Kp Lin MD at 14:39 EDT ,
== END | disposition home or self-care (01) ==
LOC: OPBI 13:38
PROVIDERS: PCP Family Medicine; Referring Provider Family Medicine; Visit Provider Family Medicine
DX: Z12.31 Encounter for screening mammogram for malignant neoplasm of breast (principal)
CPT/HCPCS: 77063; 77067

== ENCOUNTER 2023-05-18 09:57 | Outpatient (RCR) | payer OTHER, SELFPAY | END 2023-05-27 23:59 | LOC: NS 09:57 | PROVIDERS: PCP Family Medicine; Visit Provider Nurse Practitioner Family | DX: Z71.3 Dietary counseling and surveillance (principal); E66.9 Obesity, unspecified; Z68.36 Body mass index [BMI] 36.0-36.9, adult; I10 Essential (primary) hypertension; E55.9 Vitamin D deficiency, unspecified | CPT/HCPCS: 97802 ==

== ENCOUNTER 2023-06-16 11:30 | Outpatient (RCR) | payer OTHER, SELFPAY | END 2023-06-26 23:59 | LOC: NS 11:30 | PROVIDERS: PCP Family Medicine; Visit Provider Nurse Practitioner Family | DX: E66.9 Obesity, unspecified (principal); Z68.36 Body mass index [BMI] 36.0-36.9, adult | CPT/HCPCS: 97803 ==

== ENCOUNTER 2023-07-20 08:30 | Outpatient (RCR) | payer OTHER, SELFPAY | END 2023-07-27 23:59 | LOC: NS 08:30 | PROVIDERS: PCP Family Medicine; Referring Provider Nurse Practitioner Family; Visit Provider Nurse Practitioner Family | DX: Z71.3 Dietary counseling and surveillance (principal); E66.9 Obesity, unspecified; Z68.36 Body mass index [BMI] 36.0-36.9, adult; E55.9 Vitamin D deficiency, unspecified; I10 Essential (primary) hypertension | CPT/HCPCS: 97803 ==

== ENCOUNTER 2023-08-03 09:18 | Outpatient (RCR) | payer OTHER, SELFPAY | END 2023-08-26 23:59 | LOC: NS 09:18 | PROVIDERS: PCP Family Medicine; Referring Provider Nurse Practitioner Family; Visit Provider Nurse Practitioner Family | DX: Z71.3 Dietary counseling and surveillance (principal); E66.9 Obesity, unspecified; Z68.36 Body mass index [BMI] 36.0-36.9, adult; I10 Essential (primary) hypertension; E55.9 Vitamin D deficiency, unspecified | CPT/HCPCS: 97803 ==

== ENCOUNTER → 2023-08-09 | Outpatient (CLI) | payer OTHER, SELFPAY ==
[2023-08-09 14:20] LABS: Mucous, Urine 0 SEEN /hpf (<or=2+)
[2023-08-09 18:29] LABS: Color, Urine Yellow (Yellow); Glucose, Dipstick Normal (Normal); Ketone-Dipstick Negative (Negative); Leukocyte Esterase-Dipstick 100 /ul (Negative); Nitrite-Dipstick Negative (Negative); Occult Blood-Urine 10 /ul (Negative); Protein-Dipstick 15 mg/dl (Negative); Urine Bilirubin Dipstick Negative (Negative); Urine Clarity Sl. Cloudy (Clear); Urine Urobilinogen Normal (Normal); Urine pH 6.5 (5.0 - 8.0)
[2023-08-09 18:40] LABS: Squamous Epithelial Cells - UA 10-25 SEEN /hpf (5-10)
[2023-08-09 18:41] LABS: Bacteria 1+ /hpf (None Seen); Red Blood Cells-Urine 0-5 SEEN /hpf (0-5); White Blood Cells 10-25 SEEN /hpf (0-5)
== END | disposition home or self-care (01) ==
PROVIDERS: PCP Family Medicine; Visit Provider Family Medicine
DX: N39.0 Urinary tract infection, site not specified (principal)
CPT/HCPCS: 81001; 87086; 87088

== ENCOUNTER → 2023-08-17 | Outpatient (CLI) | payer OTHER, SELFPAY ==
--- NOTE | 2023-08-17 09:10 | RAD_ITS ---
STUDY: X-RAY - LEFT WRIST REASON FOR EXAM: Female, 63 years old. Wrist pain. TECHNIQUE: 3 views of the left wrist were obtained. COMPARISON: None. FINDINGS: Normal visualized distal radius and ulna. Normal radiocarpal articulation. Normal distal radioulnar articulation. Intact carpal bones. There is mild triscaphe arthrosis. There is moderate to severe degenerative arthrosis at the first CMC joint. Normal second through fifth carpometacarpal articulations. Normal visualized metacarpal bones. The soft tissue structures are unremarkable. 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 Mild triscaphe arthrosis. No acute fracture. Electronically Signed: Puneet Cavanaugh MD at 12:53 EST ,
== END | disposition home or self-care (01) ==
LOC: MTRAD 09:08
PROVIDERS: PCP Family Medicine; Referring Provider Family Medicine; Visit Provider Family Medicine
DX: M25.532 Pain in left wrist (principal)
CPT/HCPCS: 73110

== ENCOUNTER → 2023-11-02 | Outpatient (CLI) | payer OTHER, SELFPAY ==
[2023-11-02 09:32] LABS: Mucous, Urine 0 SEEN /hpf (<or=2+); Red Blood Cells-Urine 0 SEEN /hpf (0-5)
[2023-11-02 12:06] LABS: Absolute Lymphocyte Count 1.47 X10^3/uL (0.83-4.51); Absolute Neutrophil Count 2.8 X10^3/uL (2.0-7.7); Basophil# 0.04 X10^3/uL; Basophil% 0.8 % (0-1); Eosinophil# 0.15 X10^3/uL; Eosinophils% 3.2 % (0-5); Hematocrit 41.7 % (37-47); Hemoglobin 13.8 g/dL (12.0-15.0); Lymphocyte # 1.47 X10^3/ul (0.83-4.51); Lymphocyte % 30.9 % (19-41); Mean Corp Hgb Conc 33.1 g/dL (32-36); Mean Corpuscular Hgb 28.6 pg (27.0-32.0); Mean Corpuscular Volume 86.5 fL (81-99); Monocyte# 0.34 X10^3/uL; Monocyte% 7.1 % (0-10); NRBC Flagged by Analyzer 0 % (0-5); Neutrophil # 2.75 X10^3/uL (2.7-7.7); Neutrophil % 57.8 % (47-70); Platelet Count 264 K/mm3 (150-450); RBC Distribution Width CV 13.8 % (11.6-14.6); RBC Distribution Width SD 43.3 fl (35.1-43.9); Red Blood Count 4.82 M/mm3 (4.2-5.4); White Blood Count 4.8 K/mm3 (4.4-11.0)
[2023-11-02 12:15] LABS: Color, Urine Yellow (Yellow); Glucose, Dipstick Normal (Normal); Ketone-Dipstick Negative (Negative); Leukocyte Esterase-Dipstick 25 /ul (Negative); Nitrite-Dipstick Negative (Negative); Occult Blood-Urine Negative /ul (Negative); Protein-Dipstick Negative (Negative); Urine Bilirubin Dipstick Negative (Negative); Urine Clarity Sl. Cloudy (Clear); Urine Urobilinogen Normal (Normal)
[2023-11-02 12:27] LABS: Vitamin D,25 Hydroxy 47.5 ng/mL
[2023-11-02 12:32] LABS: Bacteria RARE /hpf (None Seen); Squamous Epithelial Cells - UA 0-5 SEEN /hpf (5-10); White Blood Cells 0-5 SEEN /hpf (0-5)
[2023-11-02 13:33] LABS: ALB/GLOB Ratio 1.1 RATIO (0.9-2.4); AST(SGOT) 16 U/L (15-37); Alanine Aminotransfer ALT/SGPT 20 U/L (13-56); Albumin, Serum 3.7 g/dL (3.2-5.0); Alkaline Phosphatase 111 U/L (45-117); Anion Gap 5 (5-15); BUN 20 mg/dL (7-18); BUN/Creat Ratio 27.6 RATIO (10-20); Calcium,Total 9.5 mg/dL (8.5-10.1); Chloride 104 mmol/L (98-107); Cholesterol 180 mg/dL (200); Creatinine, Serum 0.72 mg/dL (0.55-1.02); EST Glomerular Filtration Rate 86 mL/min (>60); Est Glom Filt Rate - Afr Amer 104 mL/min (>60); Globulin 3.5 g/dL (2.2-4.2); Glucose 94 mg/dL (74-106); High Density Lipoprotein 68 mg/dL; Magnesium 2.3 mg/dL (1.6-2.6); Potassium 3.4 mmol/L (3.5-5.1); Protein, Total 7.2 g/dL (6.4-8.2); Sodium Level 136 mmol/L (136-145); Triglycerides 117 mg/dL; Very Low Density Lipoprotein 23 mg/dL (5-40)
[2023-11-02 14:07] LABS: Hemoglobin A1c 5.8 % (3.8-5.6)
== END | disposition home or self-care (01) ==
LOC: MTLAB 09:26
PROVIDERS: PCP Family Medicine; Referring Provider Family Medicine; Visit Provider Family Medicine
DX: I10 Essential (primary) hypertension (principal); E55.9 Vitamin D deficiency, unspecified; R73.01 Impaired fasting glucose
CPT/HCPCS: 36415; 80053; 80061; 81001; 82306; 83036; 83735; 85025

== ENCOUNTER → 2024-03-16 | Outpatient (CLI) | payer MEDICARE, OTHER, SELFPAY ==
[2024-03-16 09:47] LABS: Mucous, Urine 0 SEEN /hpf (<or=2+); Red Blood Cells-Urine 0 SEEN /hpf (0-5)
[2024-03-16 12:07] LABS: Absolute Lymphocyte Count 1.65 X10^3/uL (0.83-4.51); Absolute Neutrophil Count 2.7 X10^3/uL (2.0-7.7); Basophil# 0.05 X10^3/uL; Eosinophil# 0.15 X10^3/uL; Hematocrit 41.8 % (37-47); Hemoglobin 13.3 g/dL (12.0-15.0); Lymphocyte # 1.65 X10^3/ul (0.83-4.51); Lymphocyte % 32.8 % (19-41); Mean Corp Hgb Conc 31.8 g/dL (32-36); Mean Corpuscular Hgb 28.1 pg (27.0-32.0); Mean Corpuscular Volume 88.4 fL (81-99); Mean Platelet Vol. 9.1 fl (6.2-12.0); Monocyte# 0.43 X10^3/uL; Monocyte% 8.5 % (0-10); NRBC Flagged by Analyzer 0 % (0-5); Neutrophil # 2.73 X10^3/uL (2.7-7.7); Neutrophil % 54.3 % (47-70); Platelet Count 252 K/mm3 (150-450); RBC Distribution Width CV 14.5 % (11.6-14.6); RBC Distribution Width SD 46.4 fl (35.1-43.9); Red Blood Count 4.73 M/mm3 (4.2-5.4)
[2024-03-16 12:10] LABS: Glucose, Dipstick Normal (Normal); Ketone-Dipstick Negative (Negative); Leukocyte Esterase-Dipstick 100 /ul (Negative); Nitrite-Dipstick Negative (Negative); Occult Blood-Urine Negative /ul (Negative); Protein-Dipstick Negative (Negative); Specific Gravity, Urine 1.005 (1.002-1.030); Urine Bilirubin Dipstick Negative (Negative); Urine Urobilinogen Normal (Normal)
[2024-03-16 12:14] LABS: Color, Urine Straw (Yellow); Urine Clarity Clear (Clear)
[2024-03-16 12:32] LABS: Squamous Epithelial Cells - UA 0-5 SEEN /hpf (5-10)
[2024-03-16 12:33] LABS: Bacteria 1+ /hpf (None Seen); White Blood Cells 0-5 SEEN /hpf (0-5)
[2024-03-16 12:40] LABS: Vitamin D,25 Hydroxy 30.1 ng/mL
[2024-03-16 13:02] LABS: ALB/GLOB Ratio 1.1 RATIO (0.9-2.4); AST(SGOT) 28 U/L (15-37); Alanine Aminotransfer ALT/SGPT 28 U/L (13-56); Albumin, Serum 3.8 g/dL (3.2-5.0); Alkaline Phosphatase 117 U/L (45-117); Anion Gap 4 (5-15); BUN 17 mg/dL (7-18); BUN/Creat Ratio 21.4 RATIO (10-20); Calcium,Total 8.8 mg/dL (8.5-10.1); Chloride 104 mmol/L (98-107); Cholesterol 192 mg/dL (200); EST Glomerular Filtration Rate 77 mL/min (>60); Est Glom Filt Rate - Afr Amer 93 mL/min (>60); Globulin 3.5 g/dL (2.2-4.2); Glucose 92 mg/dL (74-106); High Density Lipoprotein 72 mg/dL; Potassium 3.7 mmol/L (3.5-5.1); Protein, Total 7.3 g/dL (6.4-8.2); Sodium Level 137 mmol/L (136-145); Thyroid Stim Hormone (TSH) 2.76 uIU/mL (0.358-3.74); Triglycerides 78 mg/dL; Very Low Density Lipoprotein 16 mg/dL (5-40)
[2024-03-16 13:23] LABS: Hemoglobin A1c 5.7 % (3.8-5.6)
== END | disposition home or self-care (01) ==
LOC: MFPLAB 09:45
PROVIDERS: PCP Family Medicine; Visit Provider Family Medicine
DX: I10 Essential (primary) hypertension (principal); R73.01 Impaired fasting glucose; E55.9 Vitamin D deficiency, unspecified
CPT/HCPCS: 36415; 80053; 80061; 81001; 82306; 83036; 84443; 85025

== ENCOUNTER → 2024-09-28 | Outpatient (CLI) | payer MEDICARE, OTHER, SELFPAY ==
--- NOTE | 2024-09-28 15:52 | BD_ITS ---
STUDY: DUAL ENERGY X-RAY ABSORPTIOMETRY / DXA REASON FOR EXAM: Female, 64 years old. Postmenopausal TECHNIQUE: Bone Mineral Density (BMD) measurements of lumbar spine and bilateral hips were obtained. COMPARISON: Prior study dated: 08/27/2016 FINDINGS: Lumbar Spine (L1): g/cm2 (0.982) / T-score (-0.1) / Z-score (1.5) Lumbar Spine (L4): g/cm2 (1.084) / T-score (0.2) / Z-score (2.1) Left Femur Neck: g/cm2 (0.839) / T-score (-0.1) / Z-score (1.4) Left Femoral Total: g/cm2 (1.066) / T-score (1.0) / Z-score (2.3) Right Femur Neck: g/cm2 (0.898) / T-score (0.4) / Z-score (2.0) Right Femoral Total: g/cm2 (1.095) / T-score (1.3) / Z-score (2.5) The T-Scores on the most recent prior examination were: Lumbar Spine (L1-L2): 1.6 Left Femoral Neck: 1.2 Right Femoral Neck: 1.3 BD/Dexa Bone Density Study IMPRESSION: The patient is considered normal as outlined below according to World Leonel Organization (WHO) criteria with a low fracture risk. Comparison to prior examination is limited due to data obtained on different equipment. Reference Information: The T-score is the number of standard deviations above or below the standard which is normal for young adults at their peak bone mineral density. The World Health Organization (WHO) interprets the T-scores as follows: Above -1 Normal bone density Between -1 and -2.5 Osteopenia Equal to / or below -2.5 Osteoporosis As a practical clinical guideline, osteopenia may be graded as follows: Mild -1 through -1.5 Moderate -1.6 through -2.0 Severe -2.1 through -2.4 The Z-score is the number of standard deviations above or below age-matched controls. A Z-score of less than -1.5 would be considered abnormal. References: 1. NIH Osteoporosis and Related Bone Diseases http://www.osteo.org 2. International Society for Clinical Densitometry http://www.iscd.org 3. National Osteoporosis Foundation http://www.nof.org Electronically Signed: Stu Owen DO at 10:42 EST ,
--- NOTE | 2024-09-28 15:52 | BI_ITS ---
MAMMOGRAPHY - BILATERAL SCREENING 3-D TOMOSYNTHESIS REASON FOR EXAM: Female, 64 years old. Routine screening PERTINENT HISTORY: No significant family history. TECHNIQUE: 2-D mammograms and 3-D Tomosynthesis of the breast (s) were performed. CAD was performed. COMPARISON: 10/02/2021 FINDINGS: The breast composition is almost entirely fat. Scattered benign calcifications are seen. No dense spiculated masses or suspicious microcalcifications are identified. No architectural distortion is identified. There is no skin thickening or retraction. There has been no significant change since the prior study. BI/SCRN MAMM (CAD)W/RONIT BILAT IMPRESSION: No mammographic signs of malignancy. Routine yearly mammograms recommended. ASSESSMENT CATEGORY: BIRADS Category 1: Negative. A letter regarding these results will be sent to the patient by the facility within 30 days. FOLLOW UP RECOMMENDATION: Yearly follow up mammogram recommended. (A) Approximately 10% of breast cancers are not detected by mammography. A normal mammogram should not delay biopsy of a clinically suspicious abnormality. Electronically Signed: Peng Keys MD at 8:10 EST ,
== END | disposition home or self-care (01) ==
LOC: OPBD 15:50
PROVIDERS: PCP Family Medicine; Referring Provider Family Medicine; Visit Provider Family Medicine
DX: Z12.31 Encounter for screening mammogram for malignant neoplasm of breast (principal); Z78.0 Asymptomatic menopausal state
CPT/HCPCS: 77063; 77067; 77080

== ENCOUNTER → 2025-02-21 | Outpatient (CLI) | payer MEDICARE, OTHER, SELFPAY ==
[2025-02-21 12:24] LABS: Color, Urine Yellow (Yellow); Glucose, Dipstick Normal (Normal); Ketone-Dipstick Negative (Negative); Leukocyte Esterase-Dipstick 100 /ul (Negative); Nitrite-Dipstick Negative (Negative); Occult Blood-Urine 10 /ul (Negative); Protein-Dipstick 30 mg/dl (Negative); Specific Gravity, Urine 1.025 (1.002-1.030); Urine Bilirubin Dipstick Negative (Negative); Urine Clarity Cloudy (Clear); Urine Urobilinogen Normal (Normal)
[2025-02-21 12:32] LABS: Absolute Lymphocyte Count 1.63 X10^3/uL (0.83-4.51); Absolute Neutrophil Count 2.3 X10^3/uL (2.0-7.7); Basophil# 0.04 X10^3/uL; Basophil% 0.9 % (0-1); Eosinophil# 0.17 X10^3/uL; Eosinophils% 3.8 % (0-5); Hematocrit 40.1 % (37-47); Hemoglobin 12.9 g/dL (12.0-15.0); Lymphocyte # 1.63 X10^3/ul (0.83-4.51); Lymphocyte % 36.5 % (19-41); Mean Corp Hgb Conc 32.2 g/dL (32-36); Mean Corpuscular Hgb 28.5 pg (27.0-32.0); Mean Corpuscular Volume 88.7 fL (81-99); Mean Platelet Vol. 9.2 fl (6.2-12.0); Monocyte# 0.35 X10^3/uL; Monocyte% 7.8 % (0-10); NRBC Flagged by Analyzer 0 % (0-5); Neutrophil # 2.26 X10^3/uL (2.7-7.7); Neutrophil % 50.8 % (47-70); Platelet Count 247 K/mm3 (150-450); RBC Distribution Width CV 14.5 % (11.6-14.6); Red Blood Count 4.52 M/mm3 (4.2-5.4); White Blood Count 4.5 K/mm3 (4.4-11.0)
[2025-02-21 12:54] LABS: Hemoglobin A1c 6.2 % (<=5.6)
[2025-02-21 13:35] LABS: Squamous Epithelial Cells - UA 5-10 SEEN /hpf (5-10)
[2025-02-21 13:36] LABS: Bacteria 3+ /hpf (None Seen)
[2025-02-21 13:37] LABS: White Blood Cells 10-25 SEEN /hpf (0-5)
[2025-02-21 13:38] LABS: Calcium Oxalate Crystals Ur 1+ /hpf (<or=2+); Mucous, Urine 2+ /hpf (<or=2+)
[2025-02-21 13:52] LABS: ALB/GLOB Ratio 1.5 RATIO (0.9-2.4); AST(SGOT) 19 U/L (<=31); Alanine Aminotransfer ALT/SGPT 14 U/L (<=34); Albumin, Serum 4.1 g/dL (3.4-4.8); Alkaline Phosphatase 104 U/L (35-104); Anion Gap 12 (5-15); BUN 28 mg/dL (4-19); BUN/Creat Ratio 38.4 RATIO (10-20); Calcium,Total 9.2 mg/dL (7.6-11.0); Chloride 107 mmol/L (98-108); Cholesterol 171 mg/dL (<=200); Creatinine, Serum 0.72 mg/dL (0.70-1.20); EST Glomerular Filtration Rate 93 (>60); Globulin 2.7 g/dL (2.2-4.2); Glucose 98 mg/dL (70-99); High Density Lipoprotein 65 mg/dL; Low Density Lipoprotein Calc. 86 mg/dL; Potassium 3.9 mmol/L (3.3-5.1); Protein, Total 6.8 g/dL (5.9-8.4); Red Blood Cells-Urine 0-5 SEEN /hpf (0-5); Sodium Level 144 mmol/L (133-145); Total Bilirubin 0.46 mg/dL (0.00-1.30); Triglycerides 99 mg/dL; Very Low Density Lipoprotein 20 mg/dL (5-40); Vitamin D,25 Hydroxy 61.5 ng/mL (30-100); cholesterol:hdl ratio screen 2.62
== END | disposition home or self-care (01) ==
LOC: MFPLAB 09:40
PROVIDERS: PCP Family Medicine; Referring Provider Family Medicine; Visit Provider Family Medicine
DX: I10 Essential (primary) hypertension (principal); E55.9 Vitamin D deficiency, unspecified; R73.01 Impaired fasting glucose
CPT/HCPCS: 36415; 80053; 80061; 81001; 82306; 83036; 85025

== ENCOUNTER → 2025-02-22 | Outpatient (CLI) | payer MEDICARE, OTHER, SELFPAY | END | disposition home or self-care (01) | LOC: MFPLAB 11:49 | PROVIDERS: PCP Family Medicine; Referring Provider Family Medicine; Visit Provider Family Medicine | DX: N39.0 Urinary tract infection, site not specified (principal) | CPT/HCPCS: 87077; 87086; 87088 ==

== ENCOUNTER → 2025-07-18 | Outpatient (CLI) | payer MEDICARE, OTHER, SELFPAY ==
[2025-07-18 10:14] LABS: Mucous, Urine 0 SEEN /hpf (<or=2+); Red Blood Cells-Urine 0 SEEN /hpf (0-5)
[2025-07-18 12:30] LABS: Color, Urine Yellow (Yellow); Glucose, Dipstick Normal (Normal); Ketone-Dipstick Negative (Negative); Leukocyte Esterase-Dipstick 500 /ul (Negative); Nitrite-Dipstick Negative (Negative); Occult Blood-Urine Negative /ul (Negative); Protein-Dipstick 15 mg/dl (Negative); Specific Gravity, Urine 1.015 (1.002-1.030); Urine Bilirubin Dipstick Negative (Negative)
[2025-07-18 12:32] LABS: Hematocrit 39.9 % (37-47); Hemoglobin 13.5 g/dL (12.0-15.0); Immature Granulocytes Count 0.010 X10^3/uL (0.0-0.0); Mean Corp Hgb Conc 33.8 g/dL (32-36); Mean Corpuscular Volume 85.6 fL (81-99); Mean Platelet Vol. 9.2 fl (6.2-12.0); NRBC Flagged by Analyzer 0 % (0-5); Platelet Count 259 K/mm3 (150-450); RBC Distribution Width CV 13.7 % (11.6-14.6); RBC Distribution Width SD 42.8 fl (35.1-43.9); Red Blood Count 4.66 M/mm3 (4.2-5.4); White Blood Count 5.1 K/mm3 (4.4-11.0)
[2025-07-18 13:00] LABS: Squamous Epithelial Cells - UA 5-10 SEEN /hpf (5-10)
[2025-07-18 13:29] LABS: AST(SGOT) 20 U/L (<=31); Alanine Aminotransfer ALT/SGPT 14 U/L (<=34); Albumin, Serum 4.4 g/dL (3.4-4.8); Alkaline Phosphatase 111 U/L (35-104); Anion Gap 11 (5-15); BUN 21 mg/dL (4-19); BUN/Creat Ratio 27.5 RATIO (10-20); Calcium,Total 9.8 mg/dL (7.6-11.0); Carbon Dioxide 30.0 mmol/L (21.0-32.0); Chloride 99 mmol/L (98-108); Cholesterol 193 mg/dL (<=200); Globulin 3.1 g/dL (2.2-4.2); Glucose 106 mg/dL (70-99); Low Density Lipoprotein Calc. 99 mg/dL; Magnesium 2.1 mg/dL (1.5-2.2); Potassium 3.2 mmol/L (3.3-5.1); Triglycerides 119 mg/dL; Very Low Density Lipoprotein 24 mg/dL (5-40); Vitamin D,25 Hydroxy 90.2 ng/mL (30-100); cholesterol:hdl ratio screen 2.64
== END | disposition home or self-care (01) ==
LOC: MFPLAB 10:10
PROVIDERS: PCP Family Medicine; Visit Provider Family Medicine
DX: I10 Essential (primary) hypertension (principal); R73.01 Impaired fasting glucose; E55.9 Vitamin D deficiency, unspecified
CPT/HCPCS: 36415; 80053; 80061; 81001; 82306; 83036; 83735; 85025

== ENCOUNTER → 2025-07-26 | Outpatient (CLI) | payer MEDICARE, OTHER, SELFPAY ==
--- OUTSIDE RECORDS SUMMARY | 2025-07-26 09:15 | XMS RPT_ITS | CCD ---
Author Organization [facility] Care Team Providers Care Environmental Planner Name Role Phone Meagan RICHARDS, Dr. Raffy Bustamante Primary Care Provider [phone] Meagan RICHARDS, Dr. Raffy Bustamante Attending Provider Meagan RICHARDS, Dr. Raffy Bustamante Referring Provider [phone] Raffy Rhodes Attending Unavailable Raffy Rhodes Primary Care Unavailable Raffy Rhodes Referring Unavailable Raffy Rhodes Referring Unavailable Raffy Rhodes Attending Unavailable Raffy Rhodes Primary Care Unavailable Raffy Rhodes Referring Unavailable Raffy Rhodes Attending Unavailable Raffy Rhodes Primary Care Unavailable Raffy Rhodes Attending Unavailable Raffy Rhodes Primary Care Unavailable Allergies Allergy Classification Reported Allergen(s) Allergy Type Date of Onset Reaction(s) Facility (14 sources) Amoxicillin Drug Allergy 01-18-2018 [facility] (15 sources) Penicillins; Translations: [Penicillins] Allergy to substance 01-18-2018 [facility] (9 sources) HYDROcodone Drug Allergy 03-31-2023 Other [facility] Comment on above: "DOES NOT WORK" (1 source) Amoxicillin Drug Allergy 03-31-2023 [facility] (1 source) HYDROcodone Drug Allergy 03-31-2023 [facility] Medications Current Medications Medication Drug Class(es) Dates Sig (Normalized) Sig (Original) aspirin 325 mg / butalbital 50 mg / caffeine 40 mg oral capsule (14 sources) Platelet Aggregation Inhibitor, Barbiturate, Nonsteroidal Anti-inflammatory Drug, Central Nervous System Stimulant, Methylxanthine Start: 09-10-2017 Butalbital-Aspiri n-Caffeine 1 EACH capsule Active 1 NMA PO Q4H as needed for migraines September 10, 2017 1:00am Start: 09-10-2017 Butalbital-Asp irin-Caffeine Active 1 EACH PO Q4H September 10, 2017 12:00am cholecalciferol 0.125 mg oral capsule (14 sources) Vitamin D Start: 12-22-2017 take 1 capsule by mouth once daily Cholecalciferol (Vitamin D3) 5,000 UNIT capsule Active 5000 U PO DAILY December 22, 2017 12:00am ciprofloxacin 250 mg oral tablet (20 sources) Quinolone Antimicrobial Start: 04-07-2023 take 1 tablet by mouth twice daily Ciprofloxacin Hcl 250 mg tablet Active 250 mg PO TWICE A DAY April 07, 2023 12:00am Start: 09-17-2017 End: 12-06-2017 take 1 tablet by mouth twice daily Ciprofloxacin Hcl 500 MG tablet Discontinued 500 mg PO TWICE A DAY September 17, 2017 1:00am December 06, 2017 3:46pm estradiol 0.5 mg oral tablet (5 sources) Estrogen Start: 09-10-2017 take 0.5 mg by mouth every other day Estradiol Active 0.5 MG PO EVERY OTHER DAY September 10, 2017 12:00am hydroCHLOROthiazide 25 mg oral tablet (9 sources) Thiazide Diuretic Start: 03-31-2023 take 1 tablet by mouth once daily Hydrochlorothiazide 25 mg tablet Active 25 mg PO DAILY March 31, 2023 12:00am 24 hr oxybutynin chloride 10 mg extended release oral tablet (9 sources) Cholinergic Muscarinic Antagonist Start: 03-31-2023 take 10 mg by mouth at bedtime oxyBUTYnin chloride Active 10 mg PO AT BEDTIME March 31, 2023 12:00am oxyCODONE hydrochloride 5 mg oral capsule (9 sources) Opioid Agonist Start: 04-07-2023 take 1 capsule by mouth every six hours as needed for pain Oxycodone 5 mg capsule Active 5 mg PO EVERY 6 HOURS as needed for pain 12 3 April 07, 2023 Problems Active Problems Problem Classification Problem Date Documented Da te Episodic/Chronic Essential hypertension (1 source) Essential (primary) hypertension; Translations: [Essential (primary) hypertension] Onset: 07-20-2025 Chronic Other diseases of bladder and urethra (14 sources) Urethral intrinsic sphincter deficiency; Translations: [Intrinsic sphincter deficiency (ISD)] 12-24-2017 Episodic Past or Other Problems Problem Classification Problem Date Documented Da te Episodic/Chronic Other screening for suspected conditions (not mental disorders or infectious disease) (15 sources) Patient encounter status; Translations: [Encounter for screening for malignant neoplasm of colon] Onset: 10-20-2024 12-24-2017 Episodic Urinary tract infections (1 source) Urinary tract infection, site not specified; Translations: [Urinary tract infection, site not specified] Onset: 02-27-2025 Episodic Results Test Name Value Interpretation Reference Range Facility CBC W/Diff, Automatedon 10-2 Absolute Lymph 1.43 X10 3/uL Normal 0.83-4.51 [facility] Comment on above: Order Comment: Order Date: 07/18/25 Order Info: 0184-1 - CBCD Performed By: #### L 500.4100, L500.4050, L501.5200, L100.0100, L501.9985 #### [facility] [address] [place], [address] Absolute Neut 3.1 X10 3/uL Normal 2.0-7.7 [facility] Comment on above: Order Comment: Order Date: 07/18/25 Order Info: 0184-1 - CBCD Performed By: #### L 500.4100, L500.4050, L501.5200, L100.0100, L501.9985 #### [facility] [address] [place], [address] Basophils/100 WBC (Bld) 0.6 % Normal 0-1 [facility] Comment on above: Order Comment: Order Date: 07/18/25 Order Info: 0184-1 - CBCD Performed By: #### L 500.4100, L500.4050, L501.5200, L100.0100, L501.9985 #### [facility] [address] [place], [address] Eosinophils/100 WBC (Bld) 2.5 % Normal 0-5 [facility] Comment on above: Order Comment: Order Date: 07/18/25 Order Info: 0184-1 - CBCD Performed By: #### L 500.4100, L500.4050, L501.5200, L100.0100, L501.9985 #### [facility] [address] [place], [address] Erythrocyte distribution width (RBC) [Ratio] 13.7 % Normal 11.6-14.6 [facility] Comment on above: Order Comment: Order Date: 07/18/25 Order Info: 0184-1 - CBCD Performed By: #### L 500.4100, L500.4050, L501.5200, L100.0100, L501.9985 #### [facility] [address] [place], [address] Hematocrit (Bld) [Volume fraction] 39.9 % Normal 37-47 [facility] Comment on above: Order Comment: Order Date: 07/18/25 Order Info: 0184- - CBCD Performed By: #### L 500.4100, L500.4050, L501.5200, L100.0100, L501.9985 #### [facility] [address] [place], [address] Hemoglobin (Bld) [Mass/Vol] 13.5 g/dL Normal 12.0-15.0 [facility] Comment on above: Order Comment: Order Date: 07/18/25 Order Info: 0184-1 - CBCD Performed By: #### L 500.4100, L500.4050, L501.5200, L100.0100, L501.9985 #### [facility] [address] [place], [address] IG% 0.200 Normal 0.0-0.9 [facility] Comment on above: Order Comment: Order Date: 07/18/25 Order Info: 0184-1 - CBCD Result Comment: IG% - Immature Granulocytes (promyelocytes, myelocytes and metamyelocytes) > 1% indicates that a LEFT SHIFT is Present. Performed By: #### L 500.4100, L500.4050, L501.5200, L100.0100, L501.9985 #### [facility] [address] [place], [address] Lymphocytes/100 WBC (Bld) 28.0 % Normal 19-41 [facility] Comment on above: Order Comment: Order Date: 07/18/25 Order Info: 018-1 - CBCD Performed By: #### L 500.4100, L500.4050, L501.5200, L100.0100, L501.9985 #### [facility] [address] [place], [address] MCH (RBC) [Entitic mass] 29.0 pg Normal 27.0-32.0 [facility] Comment on above: Order Comment: Order Date: 07/18/25 Order Info: 018- - CBCD Performed By: #### L 500.4100, L500.4050, L501.5200, L100.0100, L501.9985 #### [facility] [address] [place], [address] MCHC (RBC) [Mass/Vol] 33.8 g/dL Normal 32-36 [facility] Comment on above: Order Comment: Order Date: 07/18/25 Order Info: 018- - CBCD Performed By: #### L 500.4100, L500.4050, L501.5200, L100.0100, L501.9985 #### [facility] [address] [place], [address] MCV (RBC) [Entitic vol] 85.6 fL Normal 81-99 [facility] Comment on above: Order Comment: Order Date: 07/18/25 Order Info: 018-1 - CBCD Performed By: #### L 500.4100, L500.4050, L501.5200, L100.0100, L501.9985 #### [facility] [address] [place], [address] Monocytes/100 WBC (Bld) 8.4 % Normal 0-10 [facility] Comment on above: Order Comment: Order Date: 07/18/25 Order Info: 0184-1 - CBCD Performed By: #### L 500.4100, L500.4050, L501.5200, L100.0100, L501.9985 #### [facility] [address] [place], [address] Neutrophils/100 WBC (Bld) 60.3 % Normal 47-70 [facility] Comment on above: Order Comment: Order Date: 07/18/25 Order Info: 0184-1 - CBCD Performed By: #### L 500.4100, L500.4050, L501.5200, L100.0100, L501.9985 #### [facility] [address] [place], [address] Nucleated RBC (Bld) [#/Vol] 0 10*3/uL Normal 0-5 [facility] Comment on above: Order Comment: Order Date: 07/18/25 Order Info: 0184-1 - CBCD Performed By: #### L 500.4100, L500.4050, L501.5200, L100.0100, L501.9985 #### [facility] [address] [place], [address] Platelet mean volume (Bld) [Entitic vol] 9.2 fL Normal 6.2-12.0 [facility] Comment on above: Order Comment: Order Date: 07/18/25 Order Info: 0184-1 - CBCD Performed By: #### L 500.4100, L500.4050, L501.5200, L100.0100, L501.9985 #### [facility] [address] [place], [address] Platelets (Bld) [#/Vol] 259 10*3/uL Normal 150-450 [facility] Comment on above: Order Comment: Order Date: 07/18/25 Order Info: 0184-1 - CBCD Performed By: #### L 500.4100, L500.4050, L501.5200, L100.0100, L501.9985 #### [facility] [address] [place], [address] RBC (Bld) [#/Vol] 4.66 10*6/uL Normal 4.2-5.4 [facility] Comment on above: Order Comment: Order Date: 07/18/25 Order Info: 0184-1 - CBCD Performed By: #### L 500.4100, L500.4050, L501.5200, L100.0100, L501.9985 #### [facility] [address] [place], [address] RDW SD 42.8 fl Normal 35.1-43.9 [facility] Comment on above: Order Comment: Order Date: 07/18/25 Order Info: 0184-1 - CBCD Performed By: #### L 500.4100, L500.4050, L501.5200, L100.0100, L501.9985 #### [facility] [address] [place], [address] WBC (Bld) [#/Vol] 5.1 10*3/uL Normal 4.4-11.0 [facility] Comment on above: Order Comment: Order Date: 07/18/25 Order Info: 0184-1 - CBCD Performed By: #### L 500.4100, L500.4050, L501.5200, L100.0100, L501.9985 #### [facility] [address] [place], [address] Comprehensive Metabolic Prof ilon 07-18-2025 Albumin [Mass/Vol] 4.4 g/dL Normal 3.4-4.8 [facility] Comment on above: Order Comment: Order Date: 07/18/25 Order Info: 0786-1 - CMP Order Info: [id number] - LIPID Order Info: [id number] - MG Performed By: #### L 500.4100, L500.4050, L501.5200, L100.0100, L501.9985 #### [facility] [address] [place], [address] Albumin/Globulin [Mass ratio] 1.4 {ratio} Normal 0.9-2.4 [facility] Comment on above: Order Comment: Order Date: 07/18/25 Order Info: 0786-1 - CMP Order Info: [id number] - LIPID Order Info: [id number] - MG Performed By: #### L 500.4100, L500.4050, L501.5200, L100.0100, L501.9985 #### [facility] [address] [place], [address] ALK PHOS 111 U/L High 35-104 [facility] Comment on above: Order Comment: Order Date: 07/18/25 Order Info: 0786-1 - CMP Order Info: [id number] - LIPID Order Info: [id number] - MG Performed By: #### L 500.4100, L500.4050, L501.5200, L100.0100, L501.9985 #### [facility] [address] [place], [address] ALT [Catalytic activity/Vol] 14 U/L Normal <=34 [facility] Comment on above: Order Comment: Order Date: 07/18/25 Order Info: 0786-1 - CMP Order Info: [id number] - LIPID Order Info: [id number] - MG Performed By: #### L 500.4100, L500.4050, L501.5200, L100.0100, L501.9985 #### [facility] [address] [place], [address] AST [Catalytic activity/Vol] 20 U/L Normal <=31 [facility] Comment on above: Order Comment: Order Date: 07/18/25 Order Info: 0786-1 - CMP Order Info: [id number] - LIPID Order Info: [id number] - MG Performed By: #### L 500.4100, L500.4050, L501.5200, L100.0100, L501.9985 #### [facility] [address] [place], [address] Bilirubin [Mass/Vol] 0.81 mg/dL Normal 0.00-1.30 [facility] Comment on above: Order Comment: Order Date: 07/18/25 Order Info: 0786- - CMP Order Info: [id number] - LIPID Order Info: [id number] - MG Performed By: #### L 500.4100, L500.4050, L501.5200, L100.0100, L501.9985 #### [facility] [address] [place], [address] BUN/CRE 27.5 RATIO High 10-20 [facility] Comment on above: Order Comment: Order Date: 07/18/25 Order Info: 0786- - CMP Order Info: [id number] - LIPID Order Info: [id number] - MG Performed By: #### L 500.4100, L500.4050, L501.5200, L100.0100, L501.9985 #### [facility] [address] [place], [address] Calcium [Mass/Vol] 9.8 mg/dL Normal 7.6-11.0 [facility] Comment on above: Order Comment: Order Date: 07/18/25 Order Info: 0786-1 - CMP Order Info: [id number] - LIPID Order Info: [id number] - MG Performed By: #### L 500.4100, L500.4050, L501.5200, L100.0100, L501.9985 #### [facility] [address] [place], [address] Chloride [Moles/Vol] 99 mmol/L Normal 98-108 [facility] Comment on above: Order Comment: Order Date: 07/18/25 Order Info: 0786- - CMP Order Info: [id number] - LIPID Order Info: [id number] - MG Performed By: #### L 500.4100, L500.4050, L501.5200, L100.0100, L501.9985 #### [facility] [address] [place], [address] CO2 [Moles/Vol] 30.0 mmol/L Normal 21.0-32.0 [facility] Comment on above: Order Comment: Order Date: 07/18/25 Order Info: 785- - CMP Order Info: [id number] - LIPID Order Info: [id number] - MG Performed By: #### L 500.4100, L500.4050, L501.5200, L100.0100, L501.9985 #### [facility] [address] [place], [address] Creatinine [Mass/Vol] 0.77 mg/dL Normal 0.70-1.20 [facility] Comment on above: Order Comment: Order Date: 07/18/25 Order Info: 07- - CMP Order Info: [id number] - LIPID Order Info: [id number] - MG Performed By: #### L 500.4100, L500.4050, L501.5200, L100.0100, L501.9985 #### [facility] [address] [place], [address] GAP 11 Normal 5-15 [facility] Comment on above: Order Comment: Order Date: 07/18/25 Order Info: 0786- - CMP Order Info: [id number] - LIPID Order Info: [id number] - MG Performed By: #### L 500.4100, L500.4050, L501.5200, L100.0100, L501.9985 #### [facility] [address] [place], [address] GFR/1.73 sq M.predicted among non-blacks MDRD (S/P/Bld) [Vol rate/Area] 85 mL/min/{1.73_m2} Normal >60 [facility] Comment on above: Order Comment: Order Date: 07/18/25 Order Info: 0786-1 - CMP Order Info: [id number] - LIPID Order Info: [id number] - MG Result Comment: mL/m in/1.73m2 CKD-EPI Creatinine Equation (2020) Performed By: #### L 500.4100, L500.4050, L501.5200, L100.0100, L501.9985 #### [facility] [address] [place], [address] Globulin (S) [Mass/Vol] 3.1 g/dL Normal 2.2-4.2 [facility] Comment on above: Order Comment: Order Date: 07/18/25 Order Info: 0786- - CMP Order Info: [id number] - LIPID Order Info: [id number] - MG Performed By: #### L 500.4100, L500.4050, L501.5200, L100.0100, L501.9985 #### [facility] [address] [place], [address] Glucose [Mass/Vol] 106 mg/dL High 70-99 [facility] Comment on above: Order Comment: Order Date: 07/18/25 Order Info: 0786-1 - CMP Order Info: [id number] - LIPID Order Info: [id number] - MG Performed By: #### L 500.4100, L500.4050, L501.5200, L100.0100, L501.9985 #### [facility] [address] [place], [address] Potassium [Moles/Vol] 3.2 mmol/L Low 3.3-5.1 [facility] Comment on above: Order Comment: Order Date: 07/18/25 Order Info: 0786-1 - CMP Order Info: [id number] - LIPID Order Info: [id number] - MG Performed By: #### L 500.4100, L500.4050, L501.5200, L100.0100, L501.9985 #### [facility] [address] [place], [address] Sodium [Moles/Vol] 140 mmol/L Normal 133-145 [facility] Comment on above: Order Comment: Order Date: 07/18/25 Order Info: 0786-1 - CMP Order Info: [id number] - LIPID Order Info: [id number] - MG Performed By: #### L 500.4100, L500.4050, L501.5200, L100.0100, L501.9985 #### [facility] [address] [place], [address] T PROT 7.4 g/dL Normal 5.9-8.4 [facility] Comment on above: Order Comment: Order Date: 07/18/25 Order Info: 0786-1 - CMP Order Info: [id number] - LIPID Order Info: [id number] - MG Performed By: #### L 500.4100, L500.4050, L501.5200, L100.0100, L501.9985 #### [facility] [address] [place], [address] Urea nitrogen [Mass/Vol] 21 mg/dL High 4-19 [facility] Comment on above: Order Comment: Order Date: 07/18/25 Order Info: 0786-1 - CMP Order Info: [id number] - LIPID Order Info: [id number] - MG Performed By: #### L 500.4100, L500.4050, L501.5200, L100.0100, L501.9985 #### [facility] [address] [place], [address] Hemoglobin A1con 07-18-2025 HbA1c (Bld) [Mass fraction] 6.1 % High <=5.6 [facility] Comment on above: Order Comment: Order Date: 07/18/25 Order Info: [id number] - A1C Result Comment: Norm al < 5.7 % Prediabetic 5.7 - 6.4 % Diabetic >or= 6.5 % Please note range changes. Performed By: #### L 500.4100, L500.4050, L501.5200, L100.0100, L501.9985 #### [facility] [address] [place], [address] Lipid Profileon 07-18-2025 CHOL:HDL 2.64 Normal [facility] Comment on above: Order Comment: Order Date: 07/18/25 Order Info: 0786-1 - CMP Order Info: [id number] - LIPID Order Info: [id number] - MG Performed By: #### L 500.4100, L500.4050, L501.5200, L100.0100, L501.9985 #### [facility] [address] [place], [address] Cholesterol [Mass/Vol] 193 mg/dL Normal <=200 [facility] Comment on above: Order Comment: Order Date: 07/18/25 Order Info: 0786-1 - CMP Order Info: [id number] - LIPID Order Info: [id number] - MG Result Comment: Chol esterol level, Desirable <200 mg/dL Borderline high cholesterol 200-239 mg/dL High cholesterol >=240 mg/dL Recommendations of the NCEP Adult Treatment Panel for the following risk-cutoff thresholds for the [place] population. Performed By: #### L 500.4100, L500.4050, L501.5200, L100.0100, L501.9985 #### [facility] [address] [place], [address] Cholesterol in HDL [Mass/Vol] 73 mg/dL Normal [facility] Comment on above: Order Comment: Order Date: 07/18/25 Order Info: 0786-1 - CMP Order Info: [id number] - LIPID Order Info: [id number] - MG Result Comment: Liz[place] onal Cholesterol Education Program (NCEP) guidelines: <40 mg/dL: Low HDL-cholesterol (major risk factor for CHD) >= 60 mg/dL: High HDL-cholesterol (negative risk factor for CHD) HDL-cholesterol is affected by a number of factors, e.g. smoking, exercise, hormones, sex and age. Performed By: #### L 500.4100, L500.4050, L501.5200, L100.0100, L501.9985 #### [facility] [address] [place], [address] Cholesterol in LDL [Mass/Vol] 99 mg/dL Normal [facility] Comment on above: Order Comment: Order Date: 07/18/25 Order Info: 0786-1 - CMP Order Info: [id number] - LIPID Order Info: [id number] - MG Result Comment: Bord fiuxgv=570-598 mg/dL Higher Qzgq=877 mg/dL or greater Solorzano Equation 2020 for LDL-C Performed By: #### L 500.4100, L500.4050, L501.5200, L100.0100, L501.9985 #### [facility] [address] [place], [address] Cholesterol in VLDL [Mass/Vol] 24 mg/dL Normal 5-40 [facility] Comment on above: Order Comment: Order Date: 07/18/25 Order Info: 0786-1 - CMP Order Info: [id number] - LIPID Order Info: [id number] - MG Performed By: #### L 500.4100, L500.4050, L501.5200, L100.0100, L501.9985 #### [facility] [address] [place], [address] Triglyceride [Mass/Vol] 119 mg/dL Normal [facility] Comment on above: Order Comment: Order Date: 07/18/25 Order Info: 0786-1 - CMP Order Info: [id number] - LIPID Order Info: [id number] - MG Result Comment: The drugs N-Acetylcysteine and Metamizole may falsely depress this assay. Normal range: <150 mg/dL Borderline High: 150-199 mg/dL High: 200-499 mg/dL Very High: >500 mg/dL Performed By: #### L 500.4100, L500.4050, L501.5200, L100.0100, L501.9985 #### [facility] [address] [place], [address] Magnesiumon 07-18-2025 Magnesium [Mass/Vol] 2.1 mg/dL Normal 1.5-2.2 [facility] Comment on above: Order Comment: Order Date: 07/18/25 Order Info: 0786-1 - CMP Order Info: [id number] - LIPID Order Info: [id number] - MG Performed By: #### L 500.4100, L500.4050, L501.5200, L100.0100, L501.9985 #### [facility] [address] [place], [address] Urinalysis, Completeon 07-18 BACTERIA 3+ /hpf Normal None Seen [facility] Comment on above: Order Comment: Order Date: 07/18/25 Order Info: [id number] - A1C Performed By: #### L 500.4100, L500.4050, L501.5200, L100.0100, L501.9985 #### [facility] [address] [place], [address] EPI,SQUAMOUS 5-10 SEEN Normal 5-10 [facility] Comment on above: Order Comment: Order Date: 07/18/25 Order Info: [id number] - A1C Performed By: #### L 500.4100, L500.4050, L501.5200, L100.0100, L501.9985 #### [facility] [address] [place], [address] WBC 10-25 SEEN Normal 0-5 [facility] Comment on above: Order Comment: Order Date: 07/18/25 Order Info: [id number] - A1C Performed By: #### L 500.4100, L500.4050, L501.5200, L100.0100, L501.9985 #### [facility] [address] [place], [address] Mucus Ql (Urine sed) 0 SEEN Normal [facility] Comment on above: Order Comment: Order Date: 07/18/25 Order Info: [id number] - A1C Performed By: #### L 500.4100, L500.4050, L501.5200, L100.0100, L501.9985 #### [facility] [address] [place], [address] RBC 0 SEEN Normal 0-5 [facility] Comment on above: Order Comment: Order Date: 07/18/25 Order Info: [id number] - A1C Performed By: #### L 500.4100, L500.4050, L501.5200, L100.0100, L501.9985 #### [facility] [address] [place], [address] Vitamin D,25 Hydroxyon 07-18 Vitamin D 25-OH 90.2 ng/mL Normal 30-100 [facility] Comment on above: Order Comment: Order Date: 07/18/25 Order Info: [id number] - A1C Result Comment: Bozena min D Status Deficiency: <20 ng/mL (50nmol/L) Insufficiency: 20-30 ng/mL (50-75 nmol/L) Sufficiency: 30-100 ng/mL (75-250 nmol/L) Toxicity: >100 ng/mL (>250 nmol/L) Performed By: #### L 500.4100, L500.4050, L501.5200, L100.0100, L501.9985 #### [facility] [address] [place], [address] Urine Cultureon 02-24-2025 [facility] Order Date: 02/22/25 Order Info: 630-4 - CUUR Organism is too fastidious for routine susceptibility studies. Aerococcus urinae [place] Count >100,000 Normal [facility] Comment on above: Performed By: #### L 500.4100, L500.4050, L501.5200, L100.0100, L501.9985 #### [facility] [place], [address] Urine cultureOrdered By: Nick Rhodes on 02-22-2025 Bacteria identified Cx Nom (U) Aerococcus urinae Abnormal [facility] Absolute lymphocyte countOrd ered By: Raffy Rhodes on 02-21-2025 Lymphocytes Auto (Unsp spec) [#/Vol] 1.63 10*3/uL 0.83-4.51 [facility] Absolute neutrophil countOrd ered By: Raffy Rhodes on 02-21-2025 Neutrophils (Bld) [#/Vol] 2.3 10*3/uL 2.0-7.7 [facility] Anion gap in Serum or Plasma Ordered By: Raffy Rhodes on 02-21-2025 Anion gap [Moles/Vol] 12 mmol/L 5-15 [facility] Automated lymphocyte count a s percentage of total leukocytesOrdered By: Raffy Rhodes on 02-21-2025 Lymphocytes/100 WBC Auto (Unsp spec) 36.5 % - [facility] BUN/creatinine ratioOrdered By: Raffy Rhodes on 02-21-2025 Urea nitrogen/Creatinine [Mass ratio] 38.4 mg/mg High 10-20 [facility] Basophil percentageOrdered B y: Raffy Rhodes on 02-21-2025 Basophils/100 WBC (Bld) 0.9 % 0-1 [facility] Bilirubin Test strip Ql (U)O rdered By: Raffy Rhodes on 02-21-2025 Bilirubin Ql (U) Negative Negative [facility] Bilirubin, totalOrdered By: Raffy Rhodes on 02-21-2025 Bilirubin [Mass/Vol] 0.46 mg/dL 0.00-1.30 [facility] CBC W/Diff, Automatedon 01-26 Absolute Lymph 1.63 X10 3/uL Normal 0.83-4.51 [facility] Comment on above: Order Comment: Order Date: 08/16/24 Order Info: 0184-1 - CBCD Performed By: #### L 100.0100, L500.4050, L501.9985, L500.4100 #### [facility] [address] [place], [address] Absolute Neut 2.3 X10 3/uL Normal 2.0-7.7 [facility] Comment on above: Order Comment: Order Date: 08/16/24 Order Info: 0184-1 - CBCD Performed By: #### L 100.0100, L500.4050, L501.9985, L500.4100 #### [facility] [address] [place], [address] Basophils/100 WBC (Bld) 0.9 % Normal 0-1 [facility] Comment on above: Order Comment: Order Date: 08/16/24 Order Info: 0184-1 - CBCD Performed By: #### L 100.0100, L500.4050, L501.9985, L500.4100 #### [facility] [address] [place], [address] Eosinophils/100 WBC (Bld) 3.8 % Normal 0-5 [facility] Comment on above: Order Comment: Order Date: 08/16/24 Order Info: 0184-1 - CBCD Performed By: #### L 100.0100, L500.4050, L501.9985, L500.4100 #### [facility] [address] [place], [address] Erythrocyte distribution width (RBC) [Ratio] 14.5 % Normal 11.6-14.6 [facility] Comment on above: Order Comment: Order Date: 08/16/24 Order Info: 0184-1 - CBCD Performed By: #### L 100.0100, L500.4050, L501.9985, L500.4100 #### [facility] [address] [place], [address] Hematocrit (Bld) [Volume fraction] 40.1 % Normal 37-47 [facility] Comment on above: Order Comment: Order Date: 08/16/24 Order Info: 0184-1 - CBCD Performed By: #### L 100.0100, L500.4050, L501.9985, L500.4100 #### [facility] [address] [place], [address] Hemoglobin (Bld) [Mass/Vol] 12.9 g/dL Normal 12.0-15.0 [facility] Comment on above: Order Comment: Order Date: 08/16/24 Order Info: 018- - CBCD Performed By: #### L 100.0100, L500.4050, L501.9985, L500.4100 #### [facility] [address] [place], [address] IG% 0.200 Normal 0.0-0.9 [facility] Comment on above: Order Comment: Order Date: 08/16/24 Order Info: 0184- - CBCD Result Comment: IG% - Immature Granulocytes (promyelocytes, myelocytes and metamyelocytes) > 1% indicates that a LEFT SHIFT is Present. Performed By: #### L 100.0100, L500.4050, L501.9985, L500.4100 #### [facility] [address] [place], [address] Lymphocytes/100 WBC (Bld) 36.5 % Normal 19-41 [facility] Comment on above: Order Comment: Order Date: 08/16/24 Order Info: 0184- - CBCD Performed By: #### L 100.0100, L500.4050, L501.9985, L500.4100 #### [facility] [address] [place], [address] MCH (RBC) [Entitic mass] 28.5 pg Normal 27.0-32.0 [facility] Comment on above: Order Comment: Order Date: 08/16/24 Order Info: 0184-1 - CBCD Performed By: #### L 100.0100, L500.4050, L501.9985, L500.4100 #### [facility] [address] [place], [address] MCHC (RBC) [Mass/Vol] 32.2 g/dL Normal 32-36 [facility] Comment on above: Order Comment: Order Date: 08/16/24 Order Info: 0184-1 - CBCD Performed By: #### L 100.0100, L500.4050, L501.9985, L500.4100 #### [facility] [address] [place], [address] MCV (RBC) [Entitic vol] 88.7 fL Normal 81-99 [facility] Comment on above: Order Comment: Order Date: 08/16/24 Order Info: 018-1 - CBCD Performed By: #### L 100.0100, L500.4050, L501.9985, L500.4100 #### [facility] [address] [place], [address] Monocytes/100 WBC (Bld) 7.8 % Normal 0-10 [facility] Comment on above: Order Comment: Order Date: 08/16/24 Order Info: 0184-1 - CBCD Performed By: #### L 100.0100, L500.4050, L501.9985, L500.4100 #### [facility] [address] [place], [address] Neutrophils/100 WBC (Bld) 50.8 % Normal 47-70 [facility] Comment on above: Order Comment: Order Date: 08/16/24 Order Info: 0184-1 - CBCD Performed By: #### L 100.0100, L500.4050, L501.9985, L500.4100 #### [facility] [address] [place], [address] Nucleated RBC (Bld) [#/Vol] 0 10*3/uL Normal 0-5 [facility] Comment on above: Order Comment: Order Date: 08/16/24 Order Info: 0184-1 - CBCD Performed By: #### L 100.0100, L500.4050, L501.9985, L500.4100 #### [facility] [address] [place], [address] Platelet mean volume (Bld) [Entitic vol] 9.2 fL Normal 6.2-12.0 [facility] Comment on above: Order Comment: Order Date: 08/16/24 Order Info: 0184-1 - CBCD Performed By: #### L 100.0100, L500.4050, L501.9985, L500.4100 #### [facility] [address] [place], [address] Platelets (Bld) [#/Vol] 247 10*3/uL Normal 150-450 [facility] Comment on above: Order Comment: Order Date: 08/16/24 Order Info: 0184- - CBCD Performed By: #### L 100.0100, L500.4050, L501.9985, L500.4100 #### [facility] [address] [place], [address] RBC (Bld) [#/Vol] 4.52 10*6/uL Normal 4.2-5.4 [facility] Comment on above: Order Comment: Order Date: 08/16/24 Order Info: 0184-1 - CBCD Performed By: #### L 100.0100, L500.4050, L501.9985, L500.4100 #### [facility] [address] [place], [address] RDW SD 47.0 fl High 35.1-43.9 [facility] Comment on above: Order Comment: Order Date: 08/16/24 Order Info: 0184-1 - CBCD Performed By: #### L 100.0100, L500.4050, L501.9985, L500.4100 #### [facility] [address] [place], [address] WBC (Bld) [#/Vol] 4.5 10*3/uL Normal 4.4-11.0 [facility] Comment on above: Order Comment: Order Date: 08/16/24 Order Info: 0184-1 - CBCD Performed By: #### L 100.0100, L500.4050, L501.9985, L500.4100 #### [facility] [address] [place], [address] Calcium oxalate crystals det ection in urine sediment by light microscopyOrdered By: Raffy Rhodes on 02-21-2025 Calcium oxalate crystals LM Ql (Urine sed) 1+ /hpf [facility] Calculated very low density lipoprotein (VLDL) cholesterol measurementOrdered By: Raffy Rhodes on 02-21-2025 Calculated very low density lipoprotein (VLDL) cholesterol measurement 20 mg/dL 5-40 [facility] Carbon dioxide, total [Moles /volume] in Central venous bloodOrdered By: Raffy Rhodes on 02-21-2025 CO2 [Moles/Vol] 25.0 mmol/L 21.0-32.0 [facility] Chloride assayOrdered By: Clementina Rhodes on 02-21-2025 Chloride [Moles/Vol] 107 mmol/L 98-108 [facility] Comprehensive Metabolic Prof ilon 02-21-2025 Albumin [Mass/Vol] 4.1 g/dL Normal 3.4-4.8 [facility] Comment on above: Order Comment: Order Date: 08/16/24 Order Info: 0786-1 - CMP Order Info: [id number] - LIPID Performed By: #### L 100.0100, L500.4050, L501.9985, L500.4100 #### [facility] [address] [place], [address] Albumin/Globulin [Mass ratio] 1.5 {ratio} Normal 0.9-2.4 [facility] Comment on above: Order Comment: Order Date: 08/16/24 Order Info: 0786-1 - CMP Order Info: [id number] - LIPID Performed By: #### L 100.0100, L500.4050, L501.9985, L500.4100 #### [facility] [address] [place], [address] ALK PHOS 104 U/L Normal 35-104 [facility] Comment on above: Order Comment: Order Date: 08/16/24 Order Info: 0786- - CMP Order Info: [id number] - LIPID Performed By: #### L 100.0100, L500.4050, L501.9985, L500.4100 #### [facility] [address] [place], [address] ALT [Catalytic activity/Vol] 14 U/L Normal <=34 [facility] Comment on above: Order Comment: Order Date: 08/16/24 Order Info: 0786- - CMP Order Info: [id number] - LIPID Performed By: #### L 100.0100, L500.4050, L501.9985, L500.4100 #### [facility] [address] [place], [address] AST [Catalytic activity/Vol] 19 U/L Normal <=31 [facility] Comment on above: Order Comment: Order Date: 08/16/24 Order Info: 0786-1 - CMP Order Info: [id number] - LIPID Performed By: #### L 100.0100, L500.4050, L501.9985, L500.4100 #### [facility] [address] [place], [address] Bilirubin [Mass/Vol] 0.46 mg/dL Normal 0.00-1.30 [facility] Comment on above: Order Comment: Order Date: 08/16/24 Order Info: 0786-1 - CMP Order Info: [id number] - LIPID Performed By: #### L 100.0100, L500.4050, L501.9985, L500.4100 #### [facility] [address] [place], [address] BUN/CRE 38.4 RATIO High 10-20 [facility] Comment on above: Order Comment: Order Date: 08/16/24 Order Info: 0786-1 - CMP Order Info: [id number] - LIPID Performed By: #### L 100.0100, L500.4050, L501.9985, L500.4100 #### [facility] [address] [place], [address] Calcium [Mass/Vol] 9.2 mg/dL Normal 7.6-11.0 [facility] Comment on above: Order Comment: Order Date: 08/16/24 Order Info: 0786-1 - CMP Order Info: [id number] - LIPID Performed By: #### L 100.0100, L500.4050, L501.9985, L500.4100 #### [facility] [address] [place], [address] Chloride [Moles/Vol] 107 mmol/L Normal 98-108 [facility] Comment on above: Order Comment: Order Date: 08/16/24 Order Info: 0786-1 - CMP Order Info: [id number] - LIPID Performed By: #### L 100.0100, L500.4050, L501.9985, L500.4100 #### [facility] [address] [place], [address] CO2 [Moles/Vol] 25.0 mmol/L Normal 21.0-32.0 [facility] Comment on above: Order Comment: Order Date: 08/16/24 Order Info: 0786-1 - CMP Order Info: [id number] - LIPID Performed By: #### L 100.0100, L500.4050, L501.9985, L500.4100 #### [facility] [address] [place], [address] Creatinine [Mass/Vol] 0.72 mg/dL Normal 0.70-1.20 [facility] Comment on above: Order Comment: Order Date: 08/16/24 Order Info: 785-09 - CMP Order Info: [id number] - LIPID Performed By: #### L 100.0100, L500.4050, L501.9985, L500.4100 #### [facility] [address] [place], [address] GAP 12 Normal 5-15 [facility] Comment on above: Order Comment: Order Date: 08/16/24 Order Info: [id number] - CMP Order Info: [id number] - LIPID Performed By: #### L 100.0100, L500.4050, L501.9985, L500.4100 #### [facility] [address] [place], [address] GFR/1.73 sq M.predicted among non-blacks MDRD (S/P/Bld) [Vol rate/Area] 93 mL/min/{1.73_m2} Normal >60 [facility] Comment on above: Order Comment: Order Date: 08/16/24 Order Info: [id number] - CMP Order Info: [id number] - LIPID Result Comment: mL/m in/1.73m2 CKD-EPI Creatinine Equation (2020) Performed By: #### L 100.0100, L500.4050, L501.9985, L500.4100 #### [facility] [address] [place], [address] Globulin (S) [Mass/Vol] 2.7 g/dL Normal 2.2-4.2 [facility] Comment on above: Order Comment: Order Date: 08/16/24 Order Info: 0786 - CMP Order Info: [id number] - LIPID Performed By: #### L 100.0100, L500.4050, L501.9985, L500.4100 #### [facility] [address] [place], [address] Glucose [Mass/Vol] 98 mg/dL Normal 70-99 [facility] Comment on above: Order Comment: Order Date: 08/16/24 Order Info: 07 - CMP Order Info: [id number] - LIPID Performed By: #### L 100.0100, L500.4050, L501.9985, L500.4100 #### [facility] [address] [place], [address] Potassium [Moles/Vol] 3.9 mmol/L Normal 3.3-5.1 [facility] Comment on above: Order Comment: Order Date: 08/16/24 Order Info: 07 - CMP Order Info: [id number] - LIPID Performed By: #### L 100.0100, L500.4050, L501.9985, L500.4100 #### [facility] [address] [place], [address] Sodium [Moles/Vol] 144 mmol/L Normal 133-145 [facility] Comment on above: Order Comment: Order Date: 08/16/24 Order Info: 0786- - CMP Order Info: [id number] - LIPID Performed By: #### L 100.0100, L500.4050, L501.9985, L500.4100 #### [facility] [address] [place], [address] T PROT 6.8 g/dL Normal 5.9-8.4 [facility] Comment on above: Order Comment: Order Date: 08/16/24 Order Info: 0786- - CMP Order Info: [id number] - LIPID Performed By: #### L 100.0100, L500.4050, L501.9985, L500.4100 #### [facility] [address] [place], [place], [address] Urea nitrogen [Mass/Vol] 28 mg/dL High 4-19 [facility] Comment on above: Order Comment: Order Date: 08/16/24 Order Info: 0786-1 - CMP Order Info: [id number] - LIPID Performed By: #### L 100.0100, L500.4050, L501.9985, L500.4100 #### [facility] [address] [place], [address] Eosinophil percentageOrdered By: Raffy Rhodes on 02-21-2025 Eosinophils/100 WBC (Bld) 3.8 % 0-5 [facility] Erythrocyte distribution wid th ratioOrdered By: Raffy Rhodes on 02-21-2025 Erythrocyte distribution width (RBC) [Ratio] 14.5 % 11.6-14.6 [facility] Erythrocyte distribution wid th standard deviationOrdered By: Raffy Rhodes on 02-21-2025 Erythrocyte distribution width (RBC) [Ratio] 47.0 fl High 35.1-43.9 [facility] Glomerular filtration rate ( GFR) estimation/1.73 sq m using serum, plasma, or whole bOrdered By: Raffy Rhodes on 02-21-2025 GFR/1.73 sq M.predicted among non-blacks MDRD (S/P/Bld) [Vol rate/Area] 93 mL/min/{1.73_m2} >60 [facility] Comment on above: mL/min/1.73m2 CKD-EP I Creatinine Equation (2020) Hematocrit Auto (Bld) [Volum e fraction]Ordered By: Raffy Rhodes on 02-21-2025 Hematocrit (Bld) [Volume fraction] 40.1 % 37-47 [facility] Hemoglobin A1con 02-21-2025 HbA1c (Bld) [Mass fraction] 6.2 % High <=5.6 [facility] Comment on above: Order Comment: Order Date: 08/16/24 Order Info: [id number] - A1C Result Comment: Norm al < 5.7 % Prediabetic 5.7 - 6.4 % Diabetic >or= 6.5 % Please note range changes. Performed By: #### L 100.0100, L500.4050, L501.9985, L500.4100 #### [facility] [address] [place], [address] Hemoglobin A1c percentageOrd ered By: Raffy Rhodes on 02-21-2025 HbA1c (Bld) [Mass fraction] 6.2 % High <5.7 [facility] Comment on above: Normal < 5.7 % Predi abetic 5.7 - 6.4 % Diabetic >or= 6.5 % Please note range changes. Hemoglobin measurementOrdere d By: Raffy Rhodes on 02-21-2025 Hemoglobin (Bld) [Mass/Vol] 12.9 g/dL 12.0-15.0 [facility] Immature granulocytes/100 WB C Auto (Bld)Ordered By: Raffy Rhodes on 02-21-2025 Immature granulocytes/100 WBC (Bld) 0.200 % 0.0-0.9 [facility] Comment on above: IG% - Immature Granu locytes (promyelocytes, myelocytes and metamyelocytes) > 1% indicates that a LEFT SHIFT is Present. Ketones Test strip Ql (U)Ord ered By: Raffy Rhodes on 02-21-2025 Ketones Ql (U) Negative Negative [facility] LDL calc ser/plasOrdered By: Raffy Rhodes on 02-21-2025 Cholesterol in LDL [Mass/Vol] 86 mg/dL [facility] Comment on above: Skwobcnovl=311-653 m g/dL & Higher Fixw=877 mg/dL or greater Laboratory - Chemistry and C hemistry - challengeOrdered By: Raffy Rhodes on 02-21-2025 AST [Catalytic activity/Vol] 19 U/L <32 [facility] Lipid Profileon 02-21-2025 CHOL:HDL 2.62 Normal [facility] Comment on above: Order Comment: Order Date: 07/18/25 Order Info: 4548-4 - A1C Performed By: #### L 500.4100, L500.4050, L501.5200, L100.0100, L501.9985 #### [facility] [address] [place], [address] Cholesterol [Mass/Vol] 171 mg/dL Normal <=200 [facility] Comment on above: Order Comment: Order Date: 07/18/25 Order Info: 4548-4 - A1C Result Comment: Chol esterol level, Desirable <200 mg/dL Borderline high cholesterol 200-239 mg/dL High cholesterol >=240 mg/dL Recommendations of the NCEP Adult Treatment Panel for the following risk-cutoff thresholds for the [place] population. Performed By: #### L 500.4100, L500.4050, L501.5200, L100.0100, L501.9985 #### [facility] [address] [place], [address] Cholesterol in HDL [Mass/Vol] 65 mg/dL Normal [facility] Comment on above: Order Comment: Order Date: 07/18/25 Order Info: 4548-4 - A1C Result Comment: Liz[place] onal Cholesterol Education Program (NCEP) guidelines: <40 mg/dL: Low HDL-cholesterol (major risk factor for CHD) >= 60 mg/dL: High HDL-cholesterol (negative risk factor for CHD) HDL-cholesterol is affected by a number of factors, e.g. smoking, exercise, hormones, sex and age. Performed By: #### L 500.4100, L500.4050, L501.5200, L100.0100, L501.9985 #### [facility] [address] [place], [address] Cholesterol in LDL [Mass/Vol] 86 mg/dL Normal [facility] Comment on above: Order Comment: Order Date: 07/18/25 Order Info: 4548-4 - A1C Result Comment: Bord hyptix=973-121 mg/dL Higher Migp=502 mg/dL or greater Performed By: #### L 500.4100, L500.4050, L501.5200, L100.0100, L501.9985 #### [facility] [address] [place], [address] Cholesterol in VLDL [Mass/Vol] 20 mg/dL Normal 5-40 [facility] Comment on above: Order Comment: Order Date: 07/18/25 Order Info: 4548-4 - A1C Performed By: #### L 500.4100, L500.4050, L501.5200, L100.0100, L501.9985 #### [facility] [address] [place], [address] Triglyceride [Mass/Vol] 99 mg/dL Normal [facility] Comment on above: Order Comment: Order Date: 07/18/25 Order Info: 4548-4 - A1C Result Comment: The drugs N-Acetylcysteine and Metamizole may falsely depress this assay. Normal range: <150 mg/dL Borderline High: 150-199 mg/dL High: 200-499 mg/dL Very High: >500 mg/dL Performed By: #### L 500.4100, L500.4050, L501.5200, L100.0100, L501.9985 #### [facility] [address] [place], [address] MCV (mean corpuscular volume ) determinationOrdered By: Raffy Rhodes on 02-21-2025 MCV (RBC) [Entitic vol] 88.7 fL 81-99 [facility] Mean corpuscular hemoglobin (MCH) determinationOrdered By: Raffy Rhodes on 02-21-2025 MCH (RBC) [Entitic mass] 28.5 pg 27.0-32.0 [facility] Mean corpuscular hemoglobin concentration (MCHC) determinationOrdered By: Raffy Rhodes on 02-21-2025 MCHC (RBC) [Mass/Vol] 32.2 g/dL 32-36 [facility] Mean platelet volume determi nationOrdered By: Raffy Rhodes on 02-21-2025 Platelet mean volume (Bld) [Entitic vol] 9.2 fL 6.2-12.0 [facility] Microscopic analysis of urin e for red blood cells (RBC)Ordered By: Raffy Rhodes on 02-21-2025 Microscopic analysis of urine for red blood cells (RBC) 0-5 SEEN /hpf 0-5 [facility] Monocyte percentageOrdered B y: Raffy Rhodes on 02-21-2025 Monocytes/100 WBC (Bld) 7.8 % 0-10 [facility] Mucus LM Ql (Urine sed)Order ed By: Raffy Rhodes on 02-21-2025 Mucus Ql (Urine sed) 2+ /hpf [facility] Neutrophil percentageOrdered By: Raffy Rhodes on 02-21-2025 Neutrophils/100 WBC (Bld) 50.8 % 47-70 [facility] Nitrite Test strip Ql (U)Ord ered By: Raffy Rhodes on 02-21-2025 Nitrite Ql (U) Negative Negative [facility] Nucleated red blood cell per centageOrdered By: Raffy Rhodes on 02-21-2025 Nucleated RBC/100 WBC (Bld) [Ratio] 0 % 0-5 [facility] Platelet countOrdered By: Clementina Rhodes on 02-21-2025 Platelets (Bld) [#/Vol] 247 10*3/uL 150-450 [facility] Potassium measurement (mass/ volume)Ordered By: Raffy Rhodes on 02-21-2025 Potassium (Unsp spec) [Mass/Vol] 3.9 mmol/L 3.3-5.1 [facility] Protein Test strip Ql (U)Ord ered By: Raffy Rhodes on 02-21-2025 Protein Ql (U) 30 mg/dl High Negative [facility] RBC Auto (Bld) [#/Vol]Ordere d By: Raffy Rhodes on 02-21-2025 RBC (Bld) [#/Vol] 4.52 10*6/uL 4.2-5.4 [facility] Screening total cholesterol/ high density lipoprotein (HDL) cholesterol ratioOrdered By: Raffy Rhodes on 02-21-2025 Cholesterol.total/Choles terol in HDL [Mass ratio] 2.62 {ratio} [facility] Serum creatinine measurement (mass/volume)Ordered By: Raffy Rhodes on 02-21-2025 Creatinine [Mass/Vol] 0.72 mg/dL 0.70-1.20 [facility] Serum globulin measurementOr dered By: Raffy Rhodes on 02-21-2025 Globulin (S) [Mass/Vol] 2.7 g/dL 2.2-4.2 [facility] Serum glucose measurement (m ass/volume)Ordered By: Raffy Rhodes on 02-21-2025 Glucose [Mass/Vol] 98 mg/dL 70-99 [facility] Serum or plasma alanine graham otransferase (ALT) measurementOrdered By: Raffy Rhodes on 02-21-2025 ALT [Catalytic activity/Vol] 14 U/L <35 [facility] Serum or plasma albumin rubina urement (mass/volume)Ordered By: Raffy Rhodes on 02-21-2025 Albumin [Mass/Vol] 4.1 g/dL 3.4-4.8 [facility] Serum or plasma albumin/glob ulin mass ratioOrdered By: Raffy Rhodes on 02-21-2025 Albumin/Globulin [Mass ratio] 1.5 {ratio} 0.9-2.4 [facility] Serum or plasma alkaline perri sphatase measurementOrdered By: Raffy Rhodes on 02-21-2025 ALP [Catalytic activity/Vol] 104 U/L 35-104 [facility] Serum or plasma calcium rubina urement (mass/volume)Ordered By: Raffy Rhodes on 02-21-2025 Calcium [Mass/Vol] 9.2 mg/dL 7.6-11.0 [facility] Serum or plasma cholesterol in HDL measurement (mass/volume)Ordered By: Raffy Rhodes on 02-21-2025 Cholesterol in HDL [Mass/Vol] 65 mg/dL >40 [facility] Comment on above: National Cholesterol Education Program (NCEP) guidelines:<40 mg/dL: Low HDL-cholesterol (major risk factor for CHD)>= 60 mg/dL: High HDL-cholesterol (negative risk factor for CHD)HDL-cholesterol is affected by a number of factors, e.g. smoking, exercise, hormones, sex and age. Serum or plasma cholesterol measurement (mass/volume)Ordered By: Raffy Rhodes on 02-21-2025 Cholesterol [Mass/Vol] 171 mg/dL <201 [facility] Comment on above: Cholesterol level, D esirable <200 mg/dLBorderline high cholesterol 200-239 mg/dLHigh cholesterol >=240 mg/dLRecommendations of the NCEP Adult Treatment Panel for the following risk-cutoff thresholds for the [place] population. Serum or plasma urea nitroge n measurement (mass/volume)Ordered By: Raffy Rhodes on 02-21-2025 Urea nitrogen [Mass/Vol] 28 mg/dL High 4-19 [facility] Sodium levelOrdered By: Raffy Rhodes on 02-21-2025 Sodium [Moles/Vol] 144 mmol/L 133-145 [facility] Squamous epithelial cells de tection in urine sediment by light microscopyOrdered By: Raffy Rhodes on 02-21-2025 Epithelial cells.squamous LM Ql (Urine sed) 5-10 SEEN /hpf 5-10 [facility] Total proteinOrdered By: Nick Rhodes on 02-21-2025 Protein [Mass/Vol] 6.8 g/dL 5.9-8.4 [facility] Triglycerides measurementOrd ered By: Raffy Rhodes on 02-21-2025 Triglyceride [Mass/Vol] 99 mg/dL <199 [facility] Comment on above: The drugs N-Acetylcy steine and Metamizole may falsely depress this assay. Normal range: <150 mg/dLBorderline High: 150-199 mg/dLHigh: 200-499 mg/dLVery High: >500 mg/dL Urinalysis, Completeon 02-21 RBC 0-5 SEEN Normal 0-5 [facility] Comment on above: Order Comment: CLEAN CATCH Performed By: #### L 400.0001, L506.1001 #### [facility] [address] [place], [address] CA OX CRYSTAL 1+ /hpf Normal [facility] Comment on above: Order Comment: CLEAN CATCH Performed By: #### L 400.0001, L506.1001 #### [facility] [address] [place], [address] Mucus Ql (Urine sed) 2+ /hpf Normal [facility] Comment on above: Order Comment: CLEAN CATCH Performed By: #### L 400.0001, L506.1001 #### [facility] [address] [place], [address] WBC 10-25 SEEN Normal 0-5 [facility] Comment on above: Order Comment: CLEAN CATCH Performed By: #### L 400.0001, L506.1001 #### [facility] [address] [place], [address] BACTERIA 3+ /hpf Normal None Seen [facility] Comment on above: Order Comment: CLEAN CATCH Performed By: #### L 400.0001, L506.1001 #### [facility] [address] [place], [address] EPI,SQUAMOUS 5-10 SEEN Normal 5-10 [facility] Comment on above: Order Comment: CLEAN CATCH Performed By: #### L 400.0001, L506.1001 #### [facility] [address] [place], [address] Urine clarityOrdered By: Nick Rhodes on 02-21-2025 Clarity (U) Cloudy Clear [facility] Urine color determinationOrd ered By: Raffy Rhodes on 02-21-2025 Color (U) Yellow Yellow [facility] [facility] Urine glucose detectionOrder ed By: Raffy Rhodes on 02-21-2025 Glucose Ql (U) Normal mg/dl Normal [facility] Urine leukocyte esterase det ection by dipstickOrdered By: Raffy Rhodes on 02-21-2025 Leukocyte esterase Test strip Ql (U) 100 /ul High Negative [facility] Urine pHOrdered By: Raffy peters on 02-21-2025 pH (U) 5.0 [pH] 5.0 - 8.0 [facility] Urine sediment bacteria coun t by microscopy (number/high power field)Ordered By: Raffy Rhodes on 02-21-2025 Bacteria LM.HPF (Urine sed) [#/Area] 3 /[HPF] None Seen [facility] Urine specific gravity measu rementOrdered By: Raffy Rhodes on 02-21-2025 Specific gravity (U) [Rel density] 1.025 1.002-1.030 [facility] Urine urobilinogen measureme ntOrdered By: Raffy Rhodes on 02-21-2025 Urobilinogen Ql (U) Normal mg/dl Normal [facility] Vitamin D,25 Hydroxyon 02-21 Vitamin D 25-OH 61.5 ng/mL Normal 30-100 [facility] Comment on above: Order Comment: Order Date: 08/16/24 Order Info: [id number] - CMP Order Info: [id number] - LIPID Result Comment: Bozena min D Status Deficiency: <20 ng/mL (50nmol/L) Insufficiency: 20-30 ng/mL (50-75 nmol/L) Sufficiency: 30-100 ng/mL (75-250 nmol/L) Toxicity: >100 ng/mL (>250 nmol/L) Performed By: #### L 400.0001, L506.1001 #### [facility] [address] [place], [place], [address] White blood cell (WBC) count Ordered By: Raffy Rhodes on 02-21-2025 WBC (Bld) [#/Vol] 4.5 10*3/uL 4.4-11.0 [facility] White blood cell countOrdere d By: Raffy Rhodes on 02-21-2025 White blood cell count 10-25 SEEN /hpf 0-5 [facility] Dexa Bone Density Studyon Dexa Bone Density Study [facility] Imaging Services [address] [place], [place] [address] Dexa Bone Density Study MR#: [id number] Acct: [id number] Name: CARMELOYANCI LEE Rep #: [id number] : 1960 F 64 From: Stu chavez DO PCP: Dr. Raffy Rhodes MD Status: [facility] Study: Dexa Bone Density Study Date of Exam: 09/28/24 Exam# [id number] Ordering Dr: Raffy Rhodes MD [id number] STUDY: DUAL ENERGY X-RAY ABSORPTIOMETRY / DXA REASON FOR EXAM: Female, 64 years old. Postmenopausal TECHNIQUE: Bone Mineral Density (BMD) measurements of lumbar spine and bilateral hips were obtained. COMPARISON: Prior study dated: 08/27/2016 FINDINGS: Lumbar Spine (L1): g/cm2 (0.982) / T-score (-0.1) / Z-score (1.5) Lumbar Spine (L4): g/cm2 (1.084) / T-score (0.2) / Z-score (2.1) Left Femur Neck: g/cm2 (0.839) / T-score (-0.1) / Z-score (1.4) Left Femoral Total: g/cm2 (1.066) / T-score (1.0) / Z-score (2.3) Right Femur Neck: g/cm2 (0.898) / T-score (0.4) / Z-score (2.0) Right Femoral Total: g/cm2 (1.095) / T-score (1.3) / Z-score (2.5) The T-Scores on the most recent prior examination were: Lumbar Spine (L1-L2): 1.6 Left Femoral Neck: 1.2 Right Femoral Neck: 1.3 BD/Dexa Bone Density Study IMPRESSION: The patient is considered normal as outlined below according to World Leonel Organization (WHO) criteria with a low fracture risk. Comparison to prior examination is limited due to data obtained on different equipment. Reference Information: The T-score is the number of standard deviations above or below the standard which is normal for young adults at their peak bone mineral density. The World Health Organization (WHO) interprets the T-scores as follows: Above -1 Normal bone density Between -1 and -2.5 Osteopenia Equal to / or below -2.5 Osteoporosis As a practical clinical guideline, osteopenia may be graded as follows: Mild -1 through -1.5 Moderate -1.6 through -2.0 Severe -2.1 through -2.4 The Z-score is the number of standard deviations above or below age-matched controls. A Z-score of less than -1.5 would be considered abnormal. References: 1. NIH Osteoporosis and Related Bone Diseases http://www.osteo.org 2. International Society for Clinical Densitometry http://www.iscd.org 3. National Osteoporosis Foundation http://www.nof.org Electronically Signed: Stu Owen DO at 10:42 EST , CC: Dr. Raffy Rhodes MD [employer]: Signed Normal [facility] SCRN MAMM (CAD)W/RONIT BILATo n 09-28-2024 SCRN MAMM (CAD)W/RONIT BILAT [facility] Imaging Services [address] [place] [id number] SCRN MAMM (CAD)W/RONIT BILAT MR#: [id number] Acct: [id number] Name: YANCI RHODES Rep #: [id number] : 1960 F 64 From: Johnnie Keys MD PCP: Dr. Raffy Rhodes MD Status: [facility] Study: SCRN MAMM (CAD)W/RONIT BILAT Date of Exam: 11/21 Exam# [id number] Ordering Dr: Raffy Rhodes [place] [id number] MAMMOGRAPHY - BILATERAL SCREENING 3-D TOMOSYNTHESIS REASON FOR EXAM: Female, 64 years old. Routine screening PERTINENT HISTORY: No significant family history. TECHNIQUE: 2-D mammograms and 3-D Tomosynthesis of the breast (s) were performed. CAD was performed. COMPARISON: 10/02/2021 FINDINGS: The breast composition is almost entirely fat. Scattered benign calcifications are seen. No dense spiculated masses or suspicious microcalcifications are identified. No architectural distortion is identified. There is no skin thickening or retraction. There has been no significant change since the prior study. BI/SCRN MAMM (CAD)W/RONIT BILAT IMPRESSION: No mammographic signs of malignancy. Routine yearly mammograms recommended. ASSESSMENT CATEGORY: BIRADS Category 1: Negative. A letter regarding these results will be sent to the patient by the facility within 30 days. FOLLOW UP RECOMMENDATION: Yearly follow up mammogram recommended. (A) Approximately 10% of breast cancers are not detected by mammography. A normal mammogram should not delay biopsy of a clinically suspicious abnormality. Electronically Signed: Peng Keys MD at 8:10 EST Reading Location ID and State: [facility] , Service support , CC: Dr. Raffy Rhodes MD [employer]sman: Signed Normal [facility] Basophil percentageOrdered B y: Gricelda Workman on 08-09-2023 Basophil percentage 10-25 SEEN /hpf 0-5 [facility] Bilirubin Test strip Ql (U)O rdered By: Gricelda Workman on 08-09-2023 Bilirubin Ql (U) Negative Negative [facility] Culture, urineOrdered By: Janeth Workman on 08-09-2023 Bacteria identified Cx Nom (U) Positive [facility] Ketones Test strip Ql (U)Ord ered By: Gricelda Workman on 08-09-2023 Ketones Ql (U) Negative Negative [facility] Mucus LM Ql (Urine sed)Order ed By: Gricelda Workman on 08-09-2023 Mucus Ql (Urine sed) 0 SEEN /hpf [facility] Nitrite Test strip Ql (U)Ord ered By: Gricelda Workman on 08-09-2023 Nitrite Ql (U) Negative Negative [facility] Protein Test strip Ql (U)Ord ered By: Gricelda Workman on 08-09-2023 Protein Ql (U) 15 mg/dl Negative [facility] Squamous epithelial cells de tection in urine sediment by light microscopyOrdered By: Gricelda Workman on 08-09-2023 Epithelial cells.squamous LM Ql (Urine sed) 10-25 SEEN /hpf 5-10 [facility] Urine blood detectionOrdered By: Gricelda Workman on 08-09-2023 RBC Ql (U) 10 /ul Negative [facility] RBC Ql (U) 0-5 SEEN /hpf 0-5 [facility] Urine clarityOrdered By: Gricelda Workman on 08-09-2023 Clarity (U) Sl. Cloudy Clear [facility] Urine color determinationOrd ered By: Gricelda Workman on 08-09-2023 Color (U) Yellow Yellow [facility] Urine glucose detectionOrder ed By: Gricelda Workman on 08-09-2023 Glucose Ql (U) Normal mg/dl Normal [facility] Urine leukocyte esterase det ection by dipstickOrdered By: Gricelda Workman on 08-09-2023 Leukocyte esterase Test strip Ql (U) 100 /ul Negative [facility] Urine pHOrdered By: Gricelda Forbes iff on 08-09-2023 pH (U) 6.5 [pH] 5.0 - 8.0 [facility] Urine sediment bacteria coun t by microscopy (number/high power field)Ordered By: Gricelda Workman on 08-09-2023 Bacteria LM.HPF (Urine sed) [#/Area] 1 /[HPF] None Seen [facility] Urine specific gravity measu rementOrdered By: Gricelda Workman on 08-09-2023 Specific gravity (U) [Rel density] 1.010 1.002-1.030 [facility] Urobilinogen Auto test strip Ql (U)Ordered By: Gricelda Workman on 08-09-2023 Urobilinogen Ql (U) Normal mg/dl Normal [facility] Absolute lymphocyte countOrd ered By: Dr. Rhodes on 09-29-2022 Lymphocytes Auto (Unsp spec) [#/Vol] 1.54 10*3/uL 0.83-4.51 [facility] Basophil percentageOrdered B y: Dr. Rhodes on 09-29-2022 Basophil percentage 10-25 SEEN /hpf 0-5 [facility] Basophils/100 WBC (Bld) 0.9 % 0-1 [facility] Bilirubin [Mass/Vol] 0.70 mg/dL 0.20-1.00 [facility] Comment on above: For patients on eltr ombopag therapy, use of Dimension Ulysses TBIL is not recommended. Chloride [Moles/Vol] 105 mmol/L 98-107 [facility] Cholesterol [Mass/Vol] 221 mg/dL <200 [facility] Comment on above: <200 mg/dL Desirable 200-240 mg/dL Borderline >240 mg/dL High Risk Eosinophils/100 WBC (Bld) 3.7 % 0-5 [facility] Glucose [Mass/Vol] 106 mg/dL 74-106 [facility] Comment on above: Fasting Glucose resu lt from 100 to 125 mg/dL suggests IMPAIRED HOMEOSTASIS per A.D.A. criteria. Neutrophils (Bld) [#/Vol] 2.5 10*3/uL 2.0-7.7 [facility] Neutrophils/100 WBC (Bld) 53.7 % 47-70 [facility] Potassium [Moles/Vol] 4.3 mmol/L 3.5-5.1 [facility] Protein [Mass/Vol] 6.8 g/dL 6.4-8.2 [facility] Sodium [Moles/Vol] 140 mmol/L 136-145 [facility] Triglyceride [Mass/Vol] 201 mg/dL <199 [facility] Comment on above: The drugs N-Acetylcy steine and Metamizole may falsely depress this assay.Serum Triglycerides Reference Interval Normal <150 mg/dL Borderline high 150 - 199 mg/dL High 200 - 499 mg/dL Very High > or = 500 mg/dL WBC (Bld) [#/Vol] 4.6 10*3/uL 4.4-11.0 [facility] Bilirubin Test strip Ql (U)O rdered By: Dr. Rhodes on 09-29-2022 Bilirubin Ql (U) Negative Negative [facility] Blood erythrocytes count (nu mber/volume)Ordered By: Dr. Rhodes on 09-29-2022 RBC (Bld) [#/Vol] 4.94 10*6/uL 4.2-5.4 [facility] Blood hemoglobin measurement (mass/volume)Ordered By: Dr. Rhodes on 09-29-2022 Hemoglobin (Bld) [Mass/Vol] 13.9 g/dL 12.0-15.0 [facility] Blood lymphocytes/100 leukoc ytesOrdered By: Dr. Rhodes on 09-29-2022 Lymphocytes/100 WBC (Bld) 33.3 % 19-41 [facility] Blood monocytes/100 leukocyt esOrdered By: Dr. Rhodes on 09-29-2022 Monocytes/100 WBC (Bld) 8.2 % 0-10 [facility] Blood platelet mean volumeOr dered By: Dr. Rhodes on 09-29-2022 Platelet mean volume (Bld) [Entitic vol] 9.1 fL 6.2-12.0 [facility] Determination of erythrocyte mean corpuscular volume (MCV)Ordered By: Dr. Rhodes on 09-29-2022 MCV (RBC) [Entitic vol] 87.7 fL 81-99 [facility] Hematocrit Auto (Bld) [Volum e fraction]Ordered By: Dr. Rhodes on 09-29-2022 Hematocrit (Bld) [Volume fraction] 43.3 % 37-47 [facility] Ketones Test strip Ql (U)Ord ered By: Dr. Rhodes on 09-29-2022 Ketones Ql (U) Negative Negative [facility] - Chemistry and C hemistry - challengeOrdered By: Dr. Rhodes on 09-29-2022 ALP [Catalytic activity/Vol] 120 U/L 45-117 [facility] ALT [Catalytic activity/Vol] 22 U/L 13-56 [facility] CO2 [Moles/Vol] 29.0 mmol/L 21.0-32.0 [facility] Globulin (S) [Mass/Vol] 3.0 g/dL 2.2-4.2 [facility] Urea nitrogen/Creatinine [Mass ratio] 36.3 mg/mg 10-20 [facility] - Hematology and Cell countsOrdered By: Dr. Rhodes on 09-29-2022 Erythrocyte distribution width (RBC) [Entitic vol] 45.1 fL 35.1-43.9 [facility] Erythrocyte distribution width (RBC) [Ratio] 14.0 % 11.6-14.6 [facility] Immature granulocytes/100 WBC (Bld) 0.200 % 0.0-0.9 [facility] Comment on above: IG% - Immature Granu locytes (promyelocytes, myelocytes and metamyelocytes) > 1% indicates that a LEFT SHIFT is Present. MCH (RBC) [Entitic mass] 28.1 pg 27.0-32.0 [facility] Nucleated RBC/100 WBC (Bld) [Ratio] 0 % 0-5 [facility] MCHC Auto (RBC) [Mass/Vol]Or dered By: Dr. Rhodes on 09-29-2022 MCHC (RBC) [Mass/Vol] 32.1 g/dL 32-36 [facility] Mucus LM Ql (Urine sed)Order ed By: Dr. Rhodes on 09-29-2022 Mucus Ql (Urine sed) 0 SEEN /hpf [facility] Nitrite Test strip Ql (U)Ord ered By: Dr. Rhodes on 09-29-2022 Nitrite Ql (U) Negative Negative [facility] No Panel InformationOrdered By: Dr. Rhodes on 09-29-2022 Estimated GFR (MDRD) Amer 90 mL/min >60 [facility] Comment on above: GFR Calc Estimated GFR (MDRD) Non-Af Amer 74 mL/min >60 [facility] Comment on above: Non- GFR Calc Thyroid Stimulating Hormone (TSH) 2.09 uIU/mL 0.358-3.74 [facility] Vitamin D 25-Hydroxy 31.5 ng/mL [facility] Comment on above: Vitamin D 25(OH) Sta tus Range Deficiency <20 ng/mL (50nmol/L) Insufficiency 20 - 30 ng/mL (50 - 75 nmol/L) Sufficiency 30 - 100 ng/mL (75 - 250 nmol/L) Toxicity >100 ng/mL (>250 nmol/L) Platelets bldOrdered By: Dr. Rhodes on 09-29-2022 Platelets (Bld) [#/Vol] 254 10*3/uL 150-450 [facility] Protein Test strip Ql (U)Ord ered By: Dr. Rhodes on 09-29-2022 Protein Ql (U) Negative Negative [facility] Serum or plasma albumin rubina urement (mass/volume)Ordered By: Dr. Rhodes on 09-29-2022 Albumin [Mass/Vol] 3.8 g/dL 3.2-5.0 [facility] Serum or plasma albumin/glob ulin mass ratioOrdered By: Dr. Rhodes on 09-29-2022 Albumin/Globulin [Mass ratio] 1.3 {ratio} 0.9-2.4 [facility] Serum or plasma calcium rubina urement (mass/volume)Ordered By: Dr. Rhodes on 09-29-2022 Calcium [Mass/Vol] 9.1 mg/dL 8.5-10.1 [facility] Serum or plasma cholesterol in HDL measurement (mass/volume)Ordered By: Dr. Rhodes on 09-29-2022 Cholesterol in HDL [Mass/Vol] 69 mg/dL >40 [facility] Comment on above: The drugs N-Acetylcy steine and Metamizole may falsely depress this assay. Reference Range HDL <40 mg/dL Low HDL Cholesterol HDL >or= 60 mg/dL High HDL Cholesterol Serum or plasma cholesterol in VLDL measurement (mass/volume)Ordered By: Dr. Rhodes on 09-29-2022 Cholesterol in VLDL [Mass/Vol] 40 mg/dL 5-40 [facility] Serum or plasma creatinine m easurement (mass/volume)Ordered By: Dr. Rhodes on 09-29-2022 Creatinine [Mass/Vol] 0.83 mg/dL 0.55-1.02 [facility] Comment on above: The validity of the calculated GFR & GFRAA in patients over 70 years has not been determined. Clinical correlation is essential. Serum or plasma low density lipoprotein (LDL) cholesterol measurement (mass/volume)Ordered By: Dr. Rhodes on 09-29-2022 Cholesterol in LDL [Mass/Vol] 112 mg/dL 0-130 [facility] Serum or plasma urea nitroge n measurement (mass/volume)Ordered By: Dr. Rhodes on 09-29-2022 Urea nitrogen [Mass/Vol] 30 mg/dL 7-18 [facility] Squamous epithelial cells de tection in urine sediment by light microscopyOrdered By: Dr. Rhodes on 09-29-2022 Epithelial cells.squamous LM Ql (Urine sed) 0-5 SEEN /hpf 5-10 [facility] Thin prep Papanicolaou smear with manual screeningOrdered By: Dr. Rhodes on 09-29-2022 Thin prep Papanicolaou smear with manual screening 14 U/L 15-37 [facility] Thin prep Papanicolaou smear with manual screening 6 5-15 [facility] Urine blood detectionOrdered By: Dr. Rhodes on 09-29-2022 RBC Ql (U) Negative Negative [facility] RBC Ql (U) 0 SEEN /hpf 0-5 [facility] Urine clarityOrdered By: Dr. Rhodes on 09-29-2022 Clarity (U) Clear Clear [facility] Urine color determinationOrd ered By: Dr. Rhodes on 09-29-2022 Color (U) Yellow Yellow [facility] Urine glucose detectionOrder ed By: Dr. Rhodes on 09-29-2022 Glucose Ql (U) Normal mg/dl Normal [facility] Urine leukocyte esterase det ection by dipstickOrdered By: Dr. Rhodes on 09-29-2022 Leukocyte esterase Test strip Ql (U) 25 /ul Negative [facility] Urine pHOrdered By: Dr. Alex muse on 09-29-2022 pH (U) 5.0 [pH] 5.0 - 8.0 [facility] Urine sediment bacteria coun t by microscopy (number/high power field)Ordered By: Dr. Rhodes on 09-29-2022 Bacteria LM.HPF (Urine sed) [#/Area] 1 /[HPF] None Seen [facility] Urine specific gravity measu rementOrdered By: Dr. Rhodes on 09-29-2022 Specific gravity (U) [Rel density] 1.025 1.002-1.030 [facility] Urobilinogen Auto test strip Ql (U)Ordered By: Dr. Rhodes on 09-29-2022 Urobilinogen Ql (U) Normal mg/dl Normal [facility] Whole blood hemoglobin A1c/t otal hemoglobin ratio (mass fraction)Ordered By: Dr. Rhodes on 09-29-2022 HbA1c (Bld) [Mass fraction] 6.0 % 3.8-5.6 [facility] Comment on above: Normal < 5.7 % Predi abetic 5.7 - 6.4 % Diabetic >or= 6.5 % Please note range changes. Culture, urineOrdered By: Dr Azeb Workman on 08-19-2022 Bacteria identified Cx Nom (U) Positive [facility] Absolute lymphocyte counton 06-04-2022 Lymphocytes Auto (Unsp spec) [#/Vol] 1.69 10*3/uL 0.83-4.51 [facility] Work Phone: Basophil percentageon 2021 Basophil percentage 0 SEEN /hpf 0-5 [facility] Work Phone: Basophils/100 WBC (Bld) 0.9 % 0-1 [facility] Work Phone: Bilirubin [Mass/Vol] 0.50 mg/dL 0.20-1.00 [facility] Work Phone: Comment on above: For patients on eltr ombopag therapy, use of Dimension Ulysses TBIL is not recommended. Chloride [Moles/Vol] 105 mmol/L 98-107 [facility] Work Phone: Cholesterol [Mass/Vol] 176 mg/dL <200 [facility] Work Phone: Comment on above: <200 mg/dL Desirable 200-240 mg/dL Borderline >240 mg/dL High Risk Eosinophils/100 WBC (Bld) 3.9 % 0-5 [facility] Work Phone: Glucose [Mass/Vol] 112 mg/dL 74-106 [facility] Work Phone: Comment on above: Fasting Glucose resu lt from 100 to 125 mg/dL suggests IMPAIRED HOMEOSTASIS per A.D.A. criteria. Neutrophils (Bld) [#/Vol] 2.1 10*3/uL 2.0-7.7 [facility] Work Phone: Neutrophils/100 WBC (Bld) 48.8 % 47-70 [facility] Work Phone: Potassium [Moles/Vol] 3.5 mmol/L 3.5-5.1 [facility] Work Phone: Protein [Mass/Vol] 7.3 g/dL 6.4-8.2 [facility] Work Phone: Sodium [Moles/Vol] 140 mmol/L 136-145 [facility] Work Phone: Triglyceride [Mass/Vol] 105 mg/dL <199 [facility] Work Phone: Comment on above: The drugs N-Acetylcy steine and Metamizole may falsely depress this assay.Serum Triglycerides Reference Interval Normal <150 mg/dL Borderline high 150 - 199 mg/dL High 200 - 499 mg/dL Very High > or = 500 mg/dL WBC (Bld) [#/Vol] 4.4 10*3/uL 4.4-11.0 [facility] Work Phone: Bilirubin Test strip Ql (U)o n 06-04-2022 Bilirubin Ql (U) Negative Negative [facility] Work Phone: [phone] Blood erythrocytes count (nu mber/volume)on 06-04-2022 RBC (Bld) [#/Vol] 4.95 10*6/uL 4.2-5.4 [facility] Work Phone: [phone] Blood hemoglobin measurement (mass/volume)on 06-04-2022 Hemoglobin (Bld) [Mass/Vol] 14.0 g/dL 12.0-15.0 [facility] Work Phone: Blood lymphocytes/100 leukoc yteson 06-04-2022 Lymphocytes/100 WBC (Bld) 38.6 % 19-41 [facility] Work Phone: [phone] Blood monocytes/100 leukocyt eson 06-04-2022 Monocytes/100 WBC (Bld) 7.3 % 0-10 [facility] Work Phone: [phone] Blood platelet mean volumeon 06-04-2022 Platelet mean volume (Bld) [Entitic vol] 9.1 fL 6.2-12.0 [facility] Work Phone: [phone] Determination of erythrocyte mean corpuscular volume (MCV)on 06-04-2022 MCV (RBC) [Entitic vol] 86.5 fL 81-99 [facility] Work Phone: [phone] Hematocrit Auto (Bld) [Volum e fraction]on 06-04-2022 Hematocrit (Bld) [Volume fraction] 42.8 % 37-47 [facility] Work Phone: [phone] Ketones Test strip Ql (U)on 06-04-2022 Ketones Ql (U) Negative Negative [facility] Work Phone: [phone] Laboratory - Chemistry and C hemistry - challengeon 06-04-2022 ALP [Catalytic activity/Vol] 107 U/L 45-117 [facility] Work Phone: [phone] ALT [Catalytic activity/Vol] 21 U/L 13-56 [facility] Work Phone: [phone] CO2 [Moles/Vol] 28.0 mmol/L 21.0-32.0 [facility] Work Phone: [phone] Globulin (S) [Mass/Vol] 3.6 g/dL 2.2-4.2 [facility] Work Phone: [phone] Urea nitrogen/Creatinine [Mass ratio] 22.8 mg/mg 10-20 [facility] Work Phone: [phone] Laboratory - Hematology and Cell countson 06-04-2022 Erythrocyte distribution width (RBC) [Entitic vol] 43.2 fL 35.1-43.9 [facility] Work Phone: [phone] Erythrocyte distribution width (RBC) [Ratio] 13.7 % 11.6-14.6 [facility] Work Phone: [phone] Immature granulocytes/100 WBC (Bld) 0.500 % 0.0-0.9 [facility] Work Phone: [phone] Comment on above: IG% - Immature Granu locytes (promyelocytes, myelocytes and metamyelocytes) > 1% indicates that a LEFT SHIFT is Present. MCH (RBC) [Entitic mass] 28.3 pg 27.0-32.0 [facility] Work Phone: [phone] Nucleated RBC/100 WBC (Bld) [Ratio] 0 % 0-5 [facility] Work Phone: [phone] MCHC Auto (RBC) [Mass/Vol]on 06-04-2022 MCHC (RBC) [Mass/Vol] 32.7 g/dL 32-36 [facility] Work Phone: Mucus LM Ql (Urine sed)on Mucus Ql (Urine sed) 0 SEEN /hpf [facility] Work Phone: Nitrite Test strip Ql (U)on 06-04-2022 Nitrite Ql (U) Negative Negative [facility] Work Phone: No Panel Informationon 06-04 Estimated GFR (MDRD) Amer 95 mL/min >60 [facility] Work Phone: Comment on above: GFR Calc Estimated GFR (MDRD) Non-Af Amer 78 mL/min >60 [facility] Work Phone: Comment on above: Non- GFR Calc Vitamin D 25-Hydroxy 27.7 ng/mL [facility] Work Phone: Comment on above: Vitamin D 25(OH) Sta tus Range Deficiency <20 ng/mL (50nmol/L) Insufficiency 20 - 30 ng/mL (50 - 75 nmol/L) Sufficiency 30 - 100 ng/mL (75 - 250 nmol/L) Toxicity >100 ng/mL (>250 nmol/L) Platelets bldon 06-04-2022 Platelets (Bld) [#/Vol] 245 10*3/uL 150-450 [facility] Work Phone: Protein Test strip Ql (U)on 06-04-2022 Protein Ql (U) Negative Negative [facility] Work Phone: [phone] Serum or plasma albumin rubina urement (mass/volume)on 06-04-2022 Albumin [Mass/Vol] 3.7 g/dL 3.2-5.0 [facility] Work Phone: [phone] Serum or plasma albumin/glob ulin mass ratioon 06-04-2022 Albumin/Globulin [Mass ratio] 1.0 {ratio} 0.9-2.4 [facility] Work Phone: [phone] Serum or plasma calcium rubina urement (mass/volume)on 06-04-2022 Calcium [Mass/Vol] 9.2 mg/dL 8.5-10.1 [facility] Work Phone: Serum or plasma cholesterol in HDL measurement (mass/volume)on 06-04-2022 Cholesterol in HDL [Mass/Vol] 76 mg/dL >40 [facility] Work Phone: Comment on above: The drugs N-Acetylcy steine and Metamizole may falsely depress this assay. Reference Range HDL <40 mg/dL Low HDL Cholesterol HDL >or= 60 mg/dL High HDL Cholesterol Serum or plasma cholesterol in VLDL measurement (mass/volume)on 06-04-2022 Cholesterol in VLDL [Mass/Vol] 21 mg/dL 5-40 [facility] Work Phone: [phone] Serum or plasma creatinine m easurement (mass/volume)on 06-04-2022 Creatinine [Mass/Vol] 0.79 mg/dL 0.55-1.02 [facility] Work Phone: Comment on above: The validity of the calculated GFR & GFRAA in patients over 70 years has not been determined. Clinical correlation is essential. Serum or plasma low density lipoprotein (LDL) cholesterol measurement (mass/volume)on 06-04-2022 Cholesterol in LDL [Mass/Vol] 79 mg/dL 0-130 [facility] Work Phone: Serum or plasma urea nitroge n measurement (mass/volume)on 06-04-2022 Urea nitrogen [Mass/Vol] 18 mg/dL 7-18 [facility] Work Phone: [phone] Squamous epithelial cells de tection in urine sediment by light microscopyon 06-04-2022 Epithelial cells.squamous LM Ql (Urine sed) 5-10 SEEN /hpf 5-10 [facility] Work Phone: [phone] Thin prep Papanicolaou smear with manual screeningon 06-04-2022 Thin prep Papanicolaou smear with manual screening 11 U/L 15-37 [facility] Work Phone: [phone] Thin prep Papanicolaou smear with manual screening 7 5-15 [facility] Work Phone: [phone] Urine blood detectionon RBC Ql (U) Negative Negative [facility] Work Phone: RBC Ql (U) 0 SEEN /hpf 0-5 [facility] Work Phone: Urine clarityon 06-04-2022 Clarity (U) Clear Clear [facility] Work Phone: Urine color determinationon 06-04-2022 Color (U) Yellow Yellow [facility] Work Phone: Urine glucose detectionon Glucose Ql (U) Normal mg/dl Normal [facility] Work Phone: Urine leukocyte esterase det ection by dipstickon 06-04-2022 Leukocyte esterase Test strip Ql (U) Negative Negative [facility] Work Phone: Urine pHon 06-04-2022 pH (U) 7.0 [pH] 5.0 - 8.0 [facility] Work Phone: Urine sediment bacteria coun t by microscopy (number/high power field)on 06-04-2022 Bacteria LM.HPF (Urine sed) [#/Area] 1 /[HPF] None Seen [facility] Work Phone: Urine specific gravity measu rementon 06-04-2022 Specific gravity (U) [Rel density] 1.010 1.002-1.030 [facility] Work Phone: Urobilinogen Auto test strip Ql (U)on 06-04-2022 Urobilinogen Ql (U) Normal mg/dl Normal [facility] Work Phone: Whole blood hemoglobin A1c/t otal hemoglobin ratio (mass fraction)on 06-04-2022 HbA1c (Bld) [Mass fraction] 6.0 % 3.8-5.6 [facility] Work Phone: Comment on above: Normal < 5.7 % Predi abetic 5.7 - 6.4 % Diabetic >or= 6.5 % Please note range changes. Cervical or vagninal specime n microscopic examination by cytology stain (reported ason 04-21-2022 Cytology report Cyto stain Doc (Cvx/Vag) Comment . [facility] Work Phone: Comment on above: The Pap smear is a s creening test designed to aid in thedetection of premalignant and malignant conditions of theuterine cervix. It is not a diagnostic procedure andshould not be used as the sole means of detecting cervicalcancer. Both false-positive and false-negative reports dooccur. Laboratory - Cytologyon 03-28 Physical Sciences Professor Cyto stain Nom (Cvx/Vag) [ID] Comment . [facility] Work Phone: [phone] Comment on above: Sylvie Mcfarlane, Cyto technologist (ASCP) Laboratory - Miscellaneous t estson 04-21-2022 Service comment (Unsp spec) [Interp] TNP [facility] Work Phone: [phone] Comment on above: Test not performedTh e Thin Prep(R) Accounts Officer was unable to read this specimen.Therefore a manual review was performed. Service comment (Unsp spec) [Interp] . . [facility] Work Phone: [phone] No Panel Informationon 04-21 Human Papillomavirus Screen Comment . [facility] Work Phone: [phone] Comment on above: The HPV DNA reflex c rosa were not met with this specimenresult therefore, no HPV testing was performed.Performed at: [address] [id number] Director: Patt Nielson MD, Phone: [phone] Pathology report final diagnosis Narrative Comment . [facility] Work Phone: [phone] Comment on above: NEGATIVE FOR INTRAEP ITHELIAL LESION OR MALIGNANCY. Absolute lymphocyte counton 01-09-2022 Lymphocytes Auto (Unsp spec) [#/Vol] 1.46 10*3/uL 0.83-4.51 [facility] Work Phone: [phone] Basophil percentageon 2021 Basophils/100 WBC (Bld) 1.0 % 0-1 [facility] Work Phone: [phone] Bilirubin [Mass/Vol] 0.60 mg/dL 0.20-1.00 [facility]: Comment on above: For patients on eltr ombopag therapy, use of Dimension Ulysses TBIL is not recommended. Chloride [Moles/Vol] 105 mmol/L 98-107 [facility] Work Phone: Cholesterol [Mass/Vol] 155 mg/dL <200 [facility] Work Phone: Comment on above: <200 mg/dL Desirable 200-240 mg/dL Borderline >240 mg/dL High Risk Eosinophils/100 WBC (Bld) 4.8 % 0-5 [facility] Work Phone: Glucose [Mass/Vol] 91 mg/dL 74-106 [facility] Work Phone: Neutrophils (Bld) [#/Vol] 2.0 10*3/uL 2.0-7.7 [facility] Work Phone: Neutrophils/100 WBC (Bld) 49.0 % 47-70 [facility] Work Phone: Potassium [Moles/Vol] 3.4 mmol/L 3.5-5.1 [facility]: Protein [Mass/Vol] 7.2 g/dL 6.4-8.2 [facility] Work Phone: Sodium [Moles/Vol] 141 mmol/L 136-145 [facility] Work Phone: Triglyceride [Mass/Vol] 68 mg/dL <199 [facility] Work Phone: Comment on above: The drugs N-Acetylcy steine and Metamizole may falsely depress this assay.Serum Triglycerides Reference Interval Normal <150 mg/dL Borderline high 150 - 199 mg/dL High 200 - 499 mg/dL Very High > or = 500 mg/dL WBC (Bld) [#/Vol] 4.1 10*3/uL 4.4-11.0 [facility] Work Phone: Blood erythrocytes count (nu mber/volume)on 01-09-2022 RBC (Bld) [#/Vol] 4.78 10*6/uL 4.2-5.4 [facility] Work Phone: Blood hemoglobin measurement (mass/volume)on 01-09-2022 Hemoglobin (Bld) [Mass/Vol] 13.7 g/dL 12.0-15.0 [facility] Work Phone: Blood lymphocytes/100 leukoc yteson 01-09-2022 Lymphocytes/100 WBC (Bld) 35.3 % 19-41 [facility] Work Phone: [phone] Blood monocytes/100 leukocyt eson 01-09-2022 Monocytes/100 WBC (Bld) 9.7 % 0-10 [facility] Work Phone: Blood platelet mean volumeon 01-09-2022 Platelet mean volume (Bld) [Entitic vol] 9.1 fL 6.2-12.0 [facility] Work Phone: Determination of erythrocyte mean corpuscular volume (MCV)on 01-09-2022 MCV (RBC) [Entitic vol] 85.8 fL 81-99 [facility] Work Phone: Hematocrit Auto (Bld) [Volum e fraction]on 01-09-2022 Hematocrit (Bld) [Volume fraction] 41.0 % 37-47 [facility] Work Phone: Laboratory - Chemistry and C hemistry - challengeon 01-09-2022 ALP [Catalytic activity/Vol] 102 U/L 45-117 [facility] Work Phone: [phone] ALT [Catalytic activity/Vol] 25 U/L 13-56 [facility] Work Phone: [phone] CO2 [Moles/Vol] 31.0 mmol/L 21.0-32.0 [facility] Work Phone: Cobalamin (Vitamin B12) [Mass/Vol] 388 pg/mL 211-911 [facility] Work Phone: Free T4 [Mass/Vol] 1.01 ng/dL 0.76-1.46 [facility] Work Phone: Globulin (S) [Mass/Vol] 3.5 g/dL 2.2-4.2 [facility] Work Phone: [phone] Urea nitrogen/Creatinine [Mass ratio] 23.9 mg/mg 10-20 [facility] Work Phone: [phone] Laboratory - Hematology and Cell countson 01-09-2022 Erythrocyte distribution width (RBC) [Entitic vol] 42.0 fL 35.1-43.9 [facility] Work Phone: [phone] Erythrocyte distribution width (RBC) [Ratio] 13.4 % 11.6-14.6 [facility] Work Phone: [phone] Immature granulocytes/100 WBC (Bld) 0.200 % 0.0-0.9 [facility] Work Phone: [phone] Comment on above: IG% - Immature Granu locytes (promyelocytes, myelocytes and metamyelocytes) > 1% indicates that a LEFT SHIFT is Present. MCH (RBC) [Entitic mass] 28.7 pg 27.0-32.0 [facility] Work Phone: [phone] Nucleated RBC/100 WBC (Bld) [Ratio] 0 % 0-5 [facility] Work Phone: [phone] MCHC Auto (RBC) [Mass/Vol]on 01-09-2022 MCHC (RBC) [Mass/Vol] 33.4 g/dL 32-36 [facility] Work Phone: [phone] Panel Informationon 01-09 Estimated GFR (MDRD) Amer 107 mL/min >60 [facility] Work Phone: [phone] Comment on above: GFR Calc Estimated GFR (MDRD) Non-Af Amer 88 mL/min >60 [facility] Work Phone: [phone] Comment on above: Non- GFR Calc Thyroid Stimulating Hormone (TSH) 1.02 uIU/mL 0.358-3.74 [facility] Work Phone: [phone] Vitamin D 25-Hydroxy 36.5 ng/mL [facility] Work Phone: [phone] Comment on above: Vitamin D 25(OH) Sta tus Range Deficiency <20 ng/mL (50nmol/L) Insufficiency 20 - 30 ng/mL (50 - 75 nmol/L) Sufficiency 30 - 100 ng/mL (75 - 250 nmol/L) Toxicity >100 ng/mL (>250 nmol/L) Platelets bldon 01-09-2022 Platelets (Bld) [#/Vol] 276 10*3/uL 150-450 [facility] Work Phone: [phone] Serum or plasma albumin rubina urement (mass/volume)on 01-09-2022 Albumin [Mass/Vol] 3.7 g/dL 3.2-5.0 [facility] Work Phone: [phone] Serum or plasma albumin/glob ulin mass ratioon 01-09-2022 Albumin/Globulin [Mass ratio] 1.1 {ratio} 0.9-2.4 [facility] Work Phone: [phone] Serum or plasma calcium rubina urement (mass/volume)on 01-09-2022 Calcium [Mass/Vol] 9.0 mg/dL 8.5-10.1 [facility] Work Phone: [phone] Serum or plasma cholesterol in HDL measurement (mass/volume)on 01-09-2022 Cholesterol in HDL [Mass/Vol] 75 mg/dL >40 [facility] Work Phone: [phone] Comment on above: The drugs N-Acetylcy steine and Metamizole may falsely depress this assay. Reference Range HDL <40 mg/dL Low HDL Cholesterol HDL >or= 60 mg/dL High HDL Cholesterol Serum or plasma cholesterol in VLDL measurement (mass/volume)on 01-09-2022 Cholesterol in VLDL [Mass/Vol] 14 mg/dL 5-40 [facility] Work Phone: [phone] Serum or plasma creatinine m easurement (mass/volume)on 01-09-2022 Creatinine [Mass/Vol] 0.71 mg/dL 0.55-1.02 [facility] Work Phone: [phone] Comment on above: The validity of the calculated GFR & GFRAA in patients over 70 years has not been determined. Clinical correlation is essential. Serum or plasma low density lipoprotein (LDL) cholesterol measurement (mass/volume)on 01-09-2022 Cholesterol in LDL [Mass/Vol] 66 mg/dL 0-130 [facility] Work Phone: Serum or plasma urea nitroge n measurement (mass/volume)on 01-09-2022 Urea nitrogen [Mass/Vol] 17 mg/dL 7-18 [facility] Work Phone: Thin prep Papanicolaou smear with manual screeningon 01-09-2022 Thin prep Papanicolaou smear with manual screening 19 U/L 15-37 [facility] Work Phone: Thin prep Papanicolaou smear with manual screening 5 5-15 [facility] Work Phone: Whole blood hemoglobin A1c/t otal hemoglobin ratio (mass fraction)on 01-09-2022 HbA1c (Bld) [Mass fraction] 5.8 % 3.8-5.6 [facility] Work Phone: Comment on above: Normal < 5.7 % Predi abetic 5.7 - 6.4 % Diabetic >or= 6.5 % Please note range changes. Culture, urine Bacteria identified Cx Nom (U) Positive [facility] Work Phone: Vital Signs Date Time Vital Sign Value Performing Clinician Shae duggan 08-03-2023 09:30-0500 Body height 157.48 cm [facility] 08-03-2023 09:30-0500 Body weight 87.81 kg [facility] 07-28-2023 00:14-0400 Body weight 89.53 kg [facility] 07-20-2023 08:30-0400 Body height 157.48 cm [facility] 07-20-2023 08:30-0400 Body weight 89.53 kg [facility] 06-16-2023 11:30-0400 Body height 157.48 cm [facility] 06-16-2023 11:30-0400 Body weight 90.17 kg [facility] 05-18-2023 11:30-0400 Body height 157.48 cm [facility] 05-18-2023 11:30-0400 Body weight 91.89 kg [facility] 04-07-2023 09:54-0400 Body temperature 98 [degF] [facility] 04-07-2023 09:54-0400 Diastolic blood pressure 81 mm[Hg] [facility] 04-07-2023 09:54-0400 Heart rate 57 /min [facility] 04-07-2023 09:54-0400 Respiratory rate 16 /min [facility] 04-07-2023 09:54-0400 SaO2% (BldA) [Mass fraction] 95 % [facility] 04-07-2023 09:54-0400 Systolic blood pressure 146 mm[Hg] [facility] 04-07-2023 07:12-0400 Body height 157.48 cm [facility] 04-07-2023 07:12-0400 Body mass index (BMI) [Ratio] 37 kg/m2 [facility] 04-07-2023 07:12-0400 Body weight 92 kg [facility] Encounters Encounter Date Encounter Type Care Provider Facility Start: 07-18-2025 End: 07-18-2025 ambulatory Raffy Rhodes Facility:[facility] Start: 02-22-2025 End: 02-22-[address] Raffy Rhodes MD Work Phone: [facility] Work Phone: Start: 02-22-2025 End: 02-22-[address] Raffy Rhodes MD -[facility] Start: 02-21-2025 End: 02-22-[address] Raffy Rhodes MD Work Phone: [facility] Work Phone: Start: 02-21-2025 End: 02-21-[address] Raffy Rhodes MD -[facility] Start: 02-21-2025 End: 02-21-2025 ambulatory Raffy Rhodes Facility:[facility] Start: 09-28-2024 End: 01-02-2025 ambulatory Raffy Rhodes Facility:[facility] Start: 08-17-2023 End: 08-17-2023 ambulatory [facility] Work Phone: Start: 08-17-2023 End: 08-17-2023 Patient encounter procedure [facility], [place] Work Phone: Start: 08-09-2023 End: 08-09-2023 ambulatory [facility] Work Phone: Start: 08-09-2023 End: 08-09-2023 Patient encounter procedure [facility], [facility] Start: 08-03-2023 End: 08-26-2023 ambulatory [facility] Work Phone: Start: 08-03-2023 End: 08-26-2023 Discharged Recurring [facility] Work Phone: Start: 08-03-2023 Registered Recurring [facility] Work Phone: Start: 07-20-2023 End: 07-27-2023 ambulatory [facility] Work Phone: Start: 07-20-2023 End: 07-27-2023 Discharged Recurring [facility] Work Phone: Start: 06-16-2023 End: 06-26-2023 ambulatory [facility] Work Phone: Start: 06-16-2023 End: 06-26-2023 Discharged Recurring [facility] Work Phone: Start: 05-18-2023 End: 05-27-2023 ambulatory [facility] Work Phone: Start: 05-18-2023 End: 05-27-2023 Discharged Recurring [facility] Work Phone: Start: 04-30-2023 End: 04-30-2023 ambulatory [facility] Work Phone: Start: 04-30-2023 End: 04-30-2023 Patient encounter procedure [facility] Work Phone: Start: 04-07-2023 End: 04-07-2023 Admission to same day surgery center [facility] Start: 09-29-2022 End: 09-29-2022 ambulatory [facility] Work Phone: Start: 09-29-2022 End: 09-29-2022 [facility] Start: 08-17-2022 End: 08-17-2022 ambulatory [facility] Work Phone: Start: 08-17-2022 End: 08-17-2022 [facility] Start: 06-04-2022 End: 06-04-2022 ambulatory [facility] Work Phone: Start: 06-04-2022 End: 06-04-2022 [facility] Start: 04-21-2022 End: 04-21-2022 [facility] Start: 01-09-2022 End: 01-09-2022 [facility] Start[facility] 10-02-2021 End: 10-02-2021 Patient encounter procedure [facility] Start: 09-29-2021 End: 09-29-2021 Patient encounter procedure [facility] Procedures Date Procedure Procedure Detail Performing Clinician Start: 02-22-[address] Raffy Rhodes MD Work Phone: Start: 02-21-2025 Urnls dip stick/tabl et reagent auto microscopy Dr. Raffy Rhodes MD Work Phone: Start: 02-21-2025 Vitamin D, 25-hydrox y measurement Dr. Raffy Rhodes MD Work Phone: Comment on above: Vitamin D StatusDefi ciency: <20 ng/mL (50nmol/L)Insufficiency: 20-30 ng/mL (50-75 nmol/L)Sufficiency: 30-100 ng/mL (75-250 nmol/L)Toxicity: >100 ng/mL (>250 nmol/L) Start: 08-17-2023 Plain x-ray of wrist Start: 08-09-2023 Bacteria identified in Urine by Culture Start: 08-09-2023 Urine culture Start: 04-30-2023 Screening mammography Start: 10-02-2021 Screening mammography Start: 09-29-2021 Ultrasonography of abdomen Bacteria identified in Urine by Culture Urine culture Urine culture Plan of Treatment Date Care Activity Detail Author Start: 04-07-2023 Anes integ musc & nr v head neck&posterior trunk ANESTH HEAD/NECK/PTRUNK [facility] Start: 04-07-2023 Insertion/rplcmt peripheral/gastric npgr INSRT/REDO PN/GASTR STIMUL [facility] Start: 04-07-2023 Patient discharge [facility] Start: 04-07-2023 Ambulation without limitation [facility] Start: 04-07-2023 Medication education [facility] Start: 04-07-2023 Taking patient vital signs [facility] Start: 04-07-2023 [facility] Path report.final Dx Spec [facility] Work Phone: Patient referral [facility] Work Phone: Payers Date Payer Category Payer Self-pay [id number] 2024 Self-pay [id number] 2024 Unknown [id number] 2014 Unknown [id number] Private Health Insurance [id number] Private Health Insurance [facility] [id number] Private Health Insurance [facility] [id number] Unknown [id number] Unknown [id number] Unknown [id number] Unknown [id number] Social History Date Type Detail Facility Start: 01-20-2018 End: 03-31-2023 Tobacco smoking status OHIS Unknown if ever smoked [facility] Start: 1960 Sex Assigned At Female [facility] Start: 03-31-2023 Tobacco smoking status NHIS Never smoked tobacco (finding) [facility] NEGATED: Highlighted row [facility] Medical Equipment Procedure Code Equipment Code Equipment Original Text Equipment Identifier Dates MACROPLASTIQUE I MPLANT 2.5ML FDA Start: 09-17-2017 MACROPLASTIQUE I MPLANT 2.5ML FDA Start: 09-17-2017 MACROPLASTIQUE I MPLANT 2.5ML FDA Start: 09-17-2017 MACROPLASTIQUE I MPLANT 2.5ML FDA Start: 09-17-2017 MACROPLASTIQUE I MPLANT 2.5ML FDA Start: 09-17-2017 MACROPLASTIQUE I MPLANT 2.5ML FDA Start: 09-17-2017 MACROPLASTIQUE I MPLANT 2.5ML FDA Start: 09-17-2017 MACROPLASTIQUE I MPLANT 2.5ML FDA Start: 09-17-2017 MACROPLASTIQUE I MPLANT 2.5ML FDA Start: 09-17-2017 MACROPLASTIQUE I MPLANT 2.5ML FDA Start: 09-17-2017 MACROPLASTIQUE I MPLANT 2.5ML FDA Start: 09-17-2017 MACROPLASTIQUE I MPLANT 2.5ML FDA Start: 09-17-2017 NEUROSTIM ,INTER STIM X INS FDA Start: 04-07-2023 MACROPLASTIQUE I MPLANT 2.5ML FDA Start: 09-17-2017 MACROPLASTIQUE I MPLANT 2.5ML FDA Start: 09-17-2017 NEUROSTIM ,INTER STIM X INS FDA Start: 04-07-2023 MACROPLASTIQUE I MPLANT 2.5ML FDA Start: 09-17-2017 MACROPLASTIQUE I MPLANT 2.5ML FDA Start: 09-17-2017 NEUROSTIM ,INTER STIM X INS FDA Start: 04-07-2023 MACROPLASTIQUE I MPLANT 2.5ML FDA Start: 09-17-2017 MACROPLASTIQUE I MPLANT 2.5ML FDA Start: 09-17-2017 NEUROSTIM ,INTER STIM X INS FDA Start: 04-07-2023 MACROPLASTIQUE I MPLANT 2.5ML FDA Start: 09-17-2017 MACROPLASTIQUE I MPLANT 2.5ML FDA Start: 09-17-2017 NEUROSTIM ,INTER STIM X INS FDA Start: 04-07-2023 MACROPLASTIQUE I MPLANT 2.5ML FDA Start: 09-17-2017 MACROPLASTIQUE I MPLANT 2.5ML FDA Start: 09-17-2017 NEUROSTIM ,INTER STIM X INS FDA Start: 04-07-2023 MACROPLASTIQUE I MPLANT 2.5ML FDA Start: 09-17-2017 MACROPLASTIQUE I MPLANT 2.5ML FDA Start: 09-17-2017 NEUROSTIM ,INTER STIM X INS FDA Start: 04-07-2023 MACROPLASTIQUE I MPLANT 2.5ML FDA Start: 09-17-2017 MACROPLASTIQUE I MPLANT 2.5ML FDA Start: 09-17-2017 NEUROSTIM ,INTER STIM X INS FDA Start: 04-07-2023 MACROPLASTIQUE I MPLANT 2.5ML FDA Start: 09-17-2017 MACROPLASTIQUE I MPLANT 2.5ML FDA Start: 09-17-2017 NEUROSTIM ,INTER STIM X INS FDA Start: 04-07-2023 Goals Date Patient Goal Desired Activity /State Mental Status Date Assessment Result Facility 04-07-2023 Cognitive function Voice/Name [facility] Work Phone: Clinical Note 04-21-2022 Note Date & Type Note Facility 04-21-2022 Note [facility] Work Phone: Pap Smear Specimen Adequacy April 21, 2022 10:30am Comment . Satisfactory for evaluation. No endocervical component is identified. Comment on above: Satisfactory for lili luation. No endocervical component is identified. Evaluation note Note Date & Type Note Facility Evaluation note No assessment information availa ble [facility] Work Phone: Reason for referral (narrative) Note Date & Type Note Facility Reason for referral (narrative) No reason for referral information available [facility] Work Phone: Chief Complaint and Reason for Visit Chief Complaint LLQ TENDER, SUBCUTAN EOUS MASS SCREENING Chief Complaint INTERSTIM THERAPY 2 FOR BATTER REPLACEMENT SCREENING Chief Complaint INTERSTIM THERAPY 2 FOR BATTER REPLACEMENT SCREENING OBESITY Chief Complaint INTERSTIM THERAPY 2 FOR BATTER REPLACEMENT SCREENING OBESITY OBESITY Chief Complaint INTERSTIM THERAPY 2 FOR BATTER REPLACEMENT SCREENING OBESITY OBESITY OBESITY Chief Complaint SCREENING OBESITY OBESITY OBESITY OBESITY Chief Complaint SCREENING OBESITY OBESITY OBESITY OBESITY LEFT WRIST PAIN Advance Directives No Advanced Directives Records Found Advance Directive Response Recorded Date/ Time Living Will No December 22, 2017 9:52am Power of Screening Technician No December 22 9:52am Advance Directive Response Recorded Date/ Time Living Will No December 22, 2017 8:52am Power of Screening Technician No December 22 8:52am Advance Directive Response Recorded Date/ Time Living Will No March 31, 2023 9 :14am Power of Screening Technician No March 31, 2023 9:14am Advance Directive Response Recorded Date/ Time Living Will No March 31, 2023 8 :14am Power of Screening Technician No March 31, 2023 8:14am Summary Purpose Family History No Family History Records Found Additional Source Comments Goals (unrecognized section and content) Goals may be documented in a n alternate sectionGoals may be documented in an alternate sectionGoals may be documented in an alternate sectionGoals may be documented in an alternate sectionGoals may be documented in an alternate sectionGoals may be documented in an alternate sectionGoals may be documented in an alternate sectionGoals may be documented in an alternate sectionGoals may be documented in an alternate sectionGoals may be documented in an alternate section Care Teams (unrecognized sec tion and content) Team Status: Active Member Role Status Dates Dr. Raffy Hayden MD Family Provider Active Dr. Raffy Rhodes MD Primary Care Provider Active Team Status: Inactive Member Role Status Dates Dr. Raffy Rhodes MD Primary Care Provider Active Dr. Gricelda Workman MD Attending Provider Active Team Status: Inactive Member Role Status Dates Dr. Raffy Rhodes MD Primary Care Pr ovider, Attending Provider, Referring Provider Active Team Status: Inactive Member Role Status Dates Dr. Raffy Rhodes MD Primary Care Provider Active Dr. Drake Thomas MD Attending Provider, Referr ing Provider Active Team Status: Inactive Member Role Status Dates Dr. Raffy Rhodes MD Primary Care Provider Active Brooke Stathopoulos , CONSULTING ACTUARY-C Attending Provider Active Team Status: Inactive Member Role Status Dates Dr. Raffy Rhodes MD Primary Care Provider Active Brooke Stathopoulos , CONSULTING ACTUARY-C Attending Provider, Referr ing Provider Active Team Status: Active Member Role Status Dates Dr. Raffy Rhodes MD Primary Care Provider Active Brooke Stathopoulos , CONSULTING ACTUARY-C Attending Provider, Referr ing Provider Active Team Status: Inactive Member Role Status Dates Dr. Raffy Rhodes MD Primary Care Provider Active Start: February 21, 2025 End: February 21, 2025 Dr. Raffy Rhodes MD Attending Provider Active Start: February 21, 2025 End: February 21, 2025 Dr. Raffy Rhodes MD Referring Provider Active Start: February 21, 2025 End: February 21, 2025 Team Status: Active Member Role Status Dates Dr. Raffy Rhodes MD Primary Care Provider Active Start: February 22, 2025 Dr. Raffy Rhodes MD Attending Provider Active Start: February 22, 2025 Dr. Raffy Rhodes MD Referring Provider Active Start: February 22, 2025 Team Status: Inactive Member Role Status Dates Dr. Raffy Rhodes MD Primary Care Provider Active Start: February 22, 2025 End: February 22, 2025 Dr. Raffy Rhodes MD Attending Provider Active Start: February 22, 2025 End: February 22, 2025 Dr. Raffy Rhodes MD Referring Provider Active Start: February 22, 2025 End: February 22, 2025 INFORMATION SOURCE (unrecogn ized section and content) DATE CREATED AUTHOR 07/22/2025 [facility] FOR RECORDS PERTAINING TO PATIENTS WHO ARE OR HAVE BEEN ENROLLED IN A CHEMICAL DEPENDENCY/SUBSTANCEABUSE PROGRAM, SOME INFORMATION MAY BE OMITTED. This clinical summary was aggregated from multiple sources. Caution should be exercised in using it in the provision of clinical care. This summary normalizes information from multiple sources, and as a consequence, information in this document may materially change the coding, format and clinical context of patient data. In addition, data may be omitted in some cases. CLINICAL DECISIONS SHOULD BE BASED ON THE PRIMARY CLINICAL RECORDS. [employer] [facility]. provides no warranty or guarantee of the accuracy or completeness of information in this document.
[2025-07-26 13:39] LABS: Potassium 3.2 mmol/L (3.3-5.1)
[2025-07-27 01:38] LABS: AST(SGOT) 21 U/L (<=31); Alanine Aminotransfer ALT/SGPT 14 U/L (<=34); Albumin, Serum 4.2 g/dL (3.4-4.8); Alkaline Phosphatase 101 U/L (35-104); Anion Gap 17 (5-15); BUN 24 mg/dL (4-19); BUN/Creat Ratio 30.8 RATIO (10-20); Calcium,Total 9.5 mg/dL (7.6-11.0); Carbon Dioxide 22.9 mmol/L (21.0-32.0); Chloride 102 mmol/L (98-108); Cholesterol 178 mg/dL (<=200); Globulin 3.0 g/dL (2.2-4.2); Glucose 97 mg/dL (70-99); Low Density Lipoprotein Calc. 97 mg/dL; Magnesium 2.0 mg/dL (1.5-2.2); Potassium 3.4 mmol/L (3.3-5.1); Triglycerides 89 mg/dL; Very Low Density Lipoprotein 18 mg/dL (5-40); cholesterol:hdl ratio screen 2.76
== END | disposition home or self-care (01) ==
LOC: MFPLAB 08:52
PROVIDERS: PCP Family Medicine; Visit Provider Family Medicine
DX: E87.6 Hypokalemia (principal); I10 Essential (primary) hypertension; R73.01 Impaired fasting glucose
CPT/HCPCS: 36415; 80053; 80061; 83036; 83735; 84132

== ENCOUNTER → 2025-07-30 | Outpatient (CLI) | payer MEDICARE, OTHER, SELFPAY ==
[2025-07-30 13:10] LABS: Magnesium 2.0 mg/dL (1.5-2.2); Potassium 3.3 mmol/L (3.3-5.1)
== END | disposition home or self-care (01) ==
LOC: MFPLAB 10:15
PROVIDERS: PCP Family Medicine; Visit Provider Family Medicine
DX: E87.6 Hypokalemia (principal)
CPT/HCPCS: 36415; 83735; 84132

== ENCOUNTER → 2025-08-06 | Outpatient (CLI) | payer MEDICARE, OTHER, SELFPAY ==
--- OUTSIDE RECORDS SUMMARY | 2025-08-06 10:56 | XMS RPT_ITS | CCD ---
Author Organization [facility] Care Team Providers Care Packaging Sales Name Role Phone Meagan RICHARDS, Dr. Raffy Bustamante Primary Care Provider Meagan RICHARDS, Dr. Raffy Bustamante Attending Provider Meagan RICHARDS, Dr. Raffy Bustamante Referring Provider Raffy Rhodes Primary Care Unavailable Raffy Rhodes Attending Unavailable Raffy Rhodes Primary Care Unavailable Raffy Rhodes Attending Unavailable Raffy Rhodes Primary Care Unavailable Raffy Rhodes Attending Unavailable Raffy Rhodes Referring Unavailable Raffy Rhodes Primary Care Unavailable Raffy Rhodes Attending Unavailable Raffy Rhodes Referring Unavailable Raffy Rhodes Primary Care Unavailable Raffy Rhodes Attending Unavailable Raffy Rhodes Referring Unavailable Raffy Rhodes Primary Care Unavailable Raffy Rhodes Attending Unavailable Allergies Allergy Classification Reported Allergen(s) Allergy Type Date of Onset Reaction(s) Facility (14 sources) Amoxicillin Drug Allergy 01-18-2018 [facility] (15 sources) Penicillins; Translations: [Penicillins] Allergy to substance 01-18-2018 [facility] (9 sources) HYDROcodone Drug Allergy 03-31-2023 Other [facility] Comment on above: DOES NOT WORK (1 source) Amoxicillin Drug Allergy 03-31-2023 [facility] (1 source) HYDROcodone Drug Allergy 03-31-2023 [facility] Medications Current Medications Medication Drug [...] EVERY 6 HOURS as needed for pain 08 29April 07, 2023 Problems Active Problems Problem Classification Problem Date Documented Da te Episodic/Chronic Essential hypertension (1 source) Essential (primary) hypertension; Translations: [Essential (primary) hypertension] Onset: 07-20-2025 Chronic Fluid and electrolyte disorders (1 source) Hypokalemia; Translations: [Hypokalemia] Onset: 08-03-2025 Episodic Other diseases of bladder and urethra (14 [...] Test Name Value Interpretation Reference Range Facility Magnesiumon 07-30-2025 Magnesium [Mass/Vol] 2.0 mg/dL Normal 1.5-2.2 [facility] Comment on above: Order Comment: Order Date: 07/30/25 Order Info: [id number] - MG Order Info: [id number] - K Performed By: #### L 501.5600, L501.5200 #### [facility] [address] [place], [place], [id number] Potassiumon 07-30-2025 Potassium [Moles/Vol] 3.3 mmol/L Normal 3.3-5.1 [facility] Comment on above: Order Comment: Order Date: 07/30/25 Order Info: [id number] - MG Order Info: [id number] - K Performed By: #### L 501.5600, L501.5200 #### [facility] [address] [place], [place], [address] Comprehensive Metabolic Prof ilon 07-27-2025 Albumin [Mass/Vol] 4.2 g/dL Normal 3.4-4.8 [facility] Comment on above: Order Comment: Order Date: 07/18/25 Order Info: 0786-1 - CMP Order Info: [id number] - LIPID Order Info: [id number] - MG Performed By: #### L 506.1001, L400.0001 #### [facility] [address] [place], [address] Albumin/Globulin [Mass ratio] 1.4 {ratio} Normal 0.9-2.4 [facility] Comment on above: Order Comment: Order Date: 07/18/25 Order Info: 0786-1 - CMP Order Info: [id number] - LIPID Order Info: [id number] - MG Performed By: #### L 506.1001, L400.0001 #### [facility] [address] [place], [address] ALK PHOS 101 U/L Normal 35-104 [facility] Comment on above: Order Comment: Order Date: 07/18/25 Order Info: 86-1 - CMP Order Info: [id number] - LIPID Order Info: [id number] - MG Performed By: #### L 506.1001, L400.0001 #### [facility] [address] [place], [address] ALT [Catalytic activity/Vol] 14 U/L Normal <=34 [facility] Comment on above: Order Comment: Order Date: 07/18/25 Order Info: 785-1 - CMP Order Info: [id number] - LIPID Order Info: [id number] - MG Performed By: #### L 506.1001, L400.0001 #### [facility] [address] [place], [address] AST [Catalytic activity/Vol] 21 U/L Normal <=31 [facility] Comment on above: Order Comment: Order Date: 07/18/25 Order Info: 86-1 - CMP Order Info: [id number] - LIPID Order Info: [id number] - MG Performed By: #### L 506.1001, L400.0001 #### [facility] [address] [place], [address] Bilirubin [Mass/Vol] 0.31 mg/dL Normal 0.00-1.30 [facility] Comment on above: Order Comment: Order Date: 07/18/25 Order Info: 86-1 - CMP Order Info: [id number] - LIPID Order Info: [id number] - MG Performed By: #### L 506.1001, L400.0001 #### [facility] [address] [place], [address] BUN/CRE 30.8 RATIO High 10-20 [facility] Comment on above: Order Comment: Order Date: 07/18/25 Order Info: 0786-1 - CMP Order Info: [id number] - LIPID Order Info: [id number] - MG Performed By: #### L 506.1001, L400.0001 #### [facility] [address] [place], [address] Calcium [Mass/Vol] 9.5 mg/dL Normal 7.6-11.0 [facility] Comment on above: Order Comment: Order Date: 07/18/25 Order Info: 86-1 - CMP Order Info: [id number] - LIPID Order Info: [id number] - MG Performed By: #### L 506.1001, L400.0001 #### [facility] [address] [place], [address] Chloride [Moles/Vol] 102 mmol/L Normal 98-108 [facility] Comment on above: Order Comment: Order Date: 07/18/25 Order Info: 0786-1 - CMP Order Info: [id number] - LIPID Order Info: [id number] - MG Performed By: #### L 506.1001, L400.0001 #### [facility] [address] [place], [address] CO2 [Moles/Vol] 22.9 mmol/L Normal 21.0-32.0 [facility] Comment on above: Order Comment: Order Date: 07/18/25 Order Info: 0786-1 - CMP Order Info: [id number] - LIPID Order Info: [id number] - MG Performed By: #### L 506.1001, L400.0001 #### [facility] [address] [place], [address] Creatinine [Mass/Vol] 0.78 mg/dL Normal 0.70-1.20 [facility] Comment on above: Order Comment: Order Date: 07/18/25 Order Info: 0786-1 - CMP Order Info: [id number] - LIPID Order Info: [id number] - MG Performed By: #### L 506.1001, L400.0001 #### [facility] [address] [place], [address] GAP 17 High 5-15 [facility] Comment on above: Order Comment: Order Date: 07/18/25 Order Info: 785-1 - CMP Order Info: [id number] - LIPID Order Info: [id number] - MG Performed By: #### L 506.1001, L400.0001 #### [facility] [address] [place], [place], [address] GFR/1.73 sq M.predicted among non-blacks MDRD (S/P/Bld) [Vol rate/Area] 83 mL/min/{1.73_m2} Normal >60 [facility] Comment on above: Order Comment: Order Date: 07/18/25 Order Info: 785-1 - CMP Order Info: [id number] - LIPID Order Info: [id number] - MG Result Comment: mL/m in/1.73m2 CKD-EPI Creatinine Equation (2020) Performed By: #### L 506.1001, L400.0001 #### [facility] [address] [place], [address] Globulin (S) [Mass/Vol] 3.0 g/dL Normal 2.2-4.2 [facility] Comment on above: Order Comment: Order Date: 07/18/25 Order Info: 0786-1 - CMP Order Info: [id number] - LIPID Order Info: [id number] - MG Performed By: #### L 506.1001, L400.0001 #### [facility] [address] [place], [address] Glucose [Mass/Vol] 97 mg/dL Normal 70-99 [facility] Comment on above: Order Comment: Order Date: 07/18/25 Order Info: 86-1 - CMP Order Info: [id number] - LIPID Order Info: [id number] - MG Performed By: #### L 506.1001, L400.0001 #### [facility] [address] [place], [address] Potassium [Moles/Vol] 3.4 mmol/L Normal 3.3-5.1 [facility] Comment on above: Order Comment: Order Date: 07/18/25 Order Info: 785-1 - CMP Order Info: [id number] - LIPID Order Info: [id number] - MG Performed By: #### L 506.1001, L400.0001 #### [facility] [address] [place], [address] Sodium [Moles/Vol] 142 mmol/L Normal 133-145 [facility] Comment on above: Order Comment: Order Date: 07/18/25 Order Info: 785-1 - CMP Order Info: [id number] - LIPID Order Info: [id number] - MG Performed By: #### L 506.1001, L400.0001 #### [facility] [address] [place], [address] T PROT 7.2 g/dL Normal 5.9-8.4 [facility] Comment on above: Order Comment: Order Date: 07/18/25 Order Info: 0786-1 - CMP Order Info: [id number] - LIPID Order Info: [id number] - MG Performed By: #### L 506.1001, L400.0001 #### [facility] [address] [place], [address] Urea nitrogen [Mass/Vol] 24 mg/dL High 4-19 [facility] Comment on above: Order Comment: Order Date: 07/18/25 Order Info: 0786-1 - CMP Order Info: [id number] - LIPID Order Info: [id number] - MG Performed By: #### L 506.1001, L400.0001 #### [facility] [address] [place], [address] Lipid Profileon 07-27-2025 CHOL:HDL 2.76 Normal [facility] Comment on above: Order Comment: Order Date: 07/18/25 Order Info: 0786-1 - CMP Order Info: [id number] - LIPID Order Info: [id number] - MG Performed By: #### L 506.1001, L400.0001 #### [facility] [address] [place], [address] Cholesterol [Mass/Vol] 178 mg/dL Normal <=200 [facility] Comment on above: Order Comment: Order Date: 07/18/25 Order Info: 07-1 - CMP Order Info: [id number] - LIPID Order Info: [id number] - MG Result Comment: Chol esterol level, Desirable <200 mg/dL Borderline high cholesterol 200-239 mg/dL High cholesterol >=240 mg/dL Recommendations of the NCEP Adult Treatment Panel for the following risk-cutoff thresholds for the [place] population. Performed By: #### L 506.1001, L400.0001 #### [facility] [address] [place], [place], [address] Cholesterol in HDL [Mass/Vol] 65 mg/dL Normal [facility] Comment on above: Order Comment: Order Date: 07/18/25 Order Info: 0786-1 - CMP Order Info: [id number] - LIPID Order Info: [id number] - MG Result Comment: [place] onal Cholesterol Education Program (NCEP) guidelines: <40 mg/dL: Low HDL-cholesterol (major risk factor for CHD) >= 60 mg/dL: High HDL-cholesterol (negative risk factor for CHD) HDL-cholesterol is affected by a number of factors, e.g. smoking, exercise, hormones, sex and age. Performed By: #### L 506.1001, L400.0001 #### [facility] [address] [place], [address] Cholesterol in LDL [Mass/Vol] 97 mg/dL Normal [facility] Comment on above: Order Comment: Order Date: 07/18/25 Order Info: 785-1 - CMP Order Info: [id number] - LIPID Order Info: [id number] - MG Result Comment: Bord jrpifh=328-644 mg/dL Higher Kbwd=649 mg/dL or greater Solorzano Equation 2020 for LDL-C Performed By: #### L 506.1001, L400.0001 #### [facility] [address] [place], [place], [address] Cholesterol in VLDL [Mass/Vol] 18 mg/dL Normal 5-40 [facility] Comment on above: Order Comment: Order Date: 07/18/25 Order Info: 785-09 - CMP Order Info: [id number] - LIPID Order Info: [id number] - MG Performed By: #### L 506.1001, L400.0001 #### [facility] [address] [place], [place], [address] Triglyceride [Mass/Vol] 89 mg/dL Normal [facility] Comment on above: Order Comment: Order Date: 07/18/25 Order Info: [id number] - CMP Order Info: - LIPID Order Info: [id number] - MG Result Comment: The drugs N-Acetylcysteine and Metamizole may falsely depress this assay. Normal range: <150 mg/dL Borderline High: 150-199 mg/dL High: 200-499 mg/dL Very High: >500 mg/dL Performed By: #### L 506.1001, L400.0001 #### [facility] [address] [place], [place], [address] Magnesiumon 07-27-2025 Magnesium [Mass/Vol] 2.0 mg/dL Normal 1.5-2.2 [facility] Comment on above: Order Comment: Order Date: 07/18/25 Order Info: 0786-1 - CMP Order Info: [id number] - LIPID Order Info: [id number] - MG Performed By: #### L 506.1001, L400.0001 #### [facility] [address] [place], [address] CBC W/Diff, Automatedon 10-3 0-2024 Absolute Neut Normal 2.0-7.7 [facility] Comment on above: Order Comment: Order Date: 07/18/25 Order Info: 0786-1 - CMP Order Info: [id number] - LIPID Order Info: [id number] - MG Result Comment: NO T UBE LOCATED, MULTIPLE PEOPLE HAVE SEARCHED THE LAB, NIKOLE PHLEB AT [facility] WAS EMAILED TO CONTACT PATIENT. Performed By: #### L 506.1001, L400.0001 #### [facility] [address] [place], [address] HCT Normal 37-47 [facility] Comment on above: Order Comment: Order Date: 07/18/25 Order Info: 785-1 - CMP Order Info: [id number] - LIPID Order Info: [id number] - MG Result Comment: NO T UBE LOCATED, MULTIPLE PEOPLE HAVE SEARCHED THE LAB, NIKOLE PHLEB AT [facility] WAS EMAILED TO CONTACT PATIENT. Performed By: #### L 506.1001, L400.0001 #### [facility] [address] [place], [address] HGB Normal 12.0-15.0 [facility] Comment on above: Order Comment: Order Date: 07/18/25 Order Info: 0786-1 - CMP Order Info: [id number] - LIPID Order Info: [id number] - MG Result Comment: NO T UBE LOCATED, MULTIPLE PEOPLE HAVE SEARCHED THE LAB, NIKOLE PHLEB AT [facility] WAS EMAILED TO CONTACT PATIENT. Performed By: #### L 506.1001, L400.0001 #### [facility] [address] [place], [address] MCH Normal 27.0-32.0 [facility] Comment on above: Order Comment: Order Date: 07/18/25 Order Info: 0786-1 - CMP Order Info: [id number] - LIPID Order Info: [id number] - MG Result Comment: NO T UBE LOCATED, MULTIPLE PEOPLE HAVE SEARCHED THE LAB, [facility] E[facility] TO CONTACT PATIENT. Performed By: #### L 506.1001, L400.0001 #### [facility] [address] [place], [address] MCHC Normal 32-36 [facility] Comment on above: Order Comment: Order Date: 07/18/25 Order Info: 0786-1 - CMP Order Info: [id number] - LIPID Order Info: [id number] - MG Result Comment: NO T UBE LOCATED, MULTIPLE PEOPLE HAVE SEARCHED THE LAB, NIKOLE PHLEB AT [facility] WAS EMAILED TO CONTACT PATIENT. Performed By: #### L 506.1001, L400.0001 #### [facility] [address] [place], [address] MCV Normal 81-99 [facility] Comment on above: Order Comment: Order Date: 07/18/25 Order Info: 0786-1 - CMP Order Info: [id number] - LIPID Order Info: [id number] - MG Result Comment: NO T UBE LOCATED, MULTIPLE PEOPLE HAVE SEARCHED THE LAB, NIKOLE PHLEB AT [facility] WAS EMAILED TO CONTACT PATIENT. Performed By: #### L 506.1001, [id number] #### [facility] [address] [place], [address] NEUT% Normal 47-70 [facility] Comment on above: Order Comment: Order Date: 07/18/25 Order Info: 0786-1 - CMP Order Info: [id number] - LIPID Order Info: [id number] - MG Result Comment: NO T UBE LOCATED, MULTIPLE PEOPLE HAVE SEARCHED THE LAB, NIKOLE PHLEB AT [facility] WAS EMAILED TO CONTACT PATIENT. Performed By: #### L 506.1001, L400.0001 #### [facility] [address] [place], [address] PLT Normal 150-450 [facility] Comment on above: Order Comment: Order Date: 07/18/25 Order Info: 0786-1 - CMP Order Info: [id number] - LIPID Order Info: [id number] - MG Result Comment: NO T UBE LOCATED, MULTIPLE PEOPLE HAVE SEARCHED THE LAB, NIKOLE PHLEB AT [facility] WAS EMAILED TO CONTACT PATIENT. Performed By: #### L 506.1001, [id number] #### [facility] [address] [place], [address] RBC Normal 4.2-5.4 [facility] Comment on above: Order Comment: Order Date: 07/18/25 Order Info: 07-1 - CMP Order Info: [id number] - LIPID Order Info: [id number] - MG Result Comment: NO T UBE LOCATED, MULTIPLE PEOPLE HAVE SEARCHED THE LAB, NIKOLE PHLEB AT [facility] WAS EMAILED TO CONTACT PATIENT. Performed By: #### L 506.1001, [id number] #### [facility] [address] [place], [address] RDW CV Normal 11.6-14.6 [facility] Comment on above: Order Comment: Order Date: 07/18/25 Order Info: 07- - CMP Order Info: [id number] - LIPID Order Info: [id number] - MG Result Comment: NO T UBE LOCATED, MULTIPLE PEOPLE HAVE SEARCHED THE LAB, NIKOLE PHLEB AT [facility] WAS EMAILED TO CONTACT PATIENT. Performed By: #### L 506.1001, [id number] #### [facility] [address] [place], [address] RDW SD Normal 35.1-43.9 [facility] Comment on above: Order Comment: Order Date: 07/18/25 Order Info: 0786-1 - CMP Order Info: [id number] - LIPID Order Info: [id number] - MG Result Comment: NO T UBE LOCATED, MULTIPLE PEOPLE HAVE SEARCHED THE LAB, NIKOLE PHLEB AT [facility] WAS EMAILED TO CONTACT PATIENT. Performed By: #### L 506.1001, [id number] #### [facility] [address] [place], [address] WBC Normal 4.4-11.0 [facility] Comment on above: Order Comment: Order Date: 07/18/25 Order Info: 0786-1 - CMP Order Info: [id number] - LIPID Order Info: [id number] - MG Result Comment: NO T UBE LOCATED, MULTIPLE PEOPLE HAVE SEARCHED THE LAB, NIKOLE AFSANEH AT [facility] WAS EMAILED TO CONTACT PATIENT. Performed By: #### L 506.1001, [id number] #### [facility] [address] [place], [address] Potassiumon 07-26-2025 Potassium [Moles/Vol] 3.2 mmol/L Low 3.3-5.1 [facility] Comment on above: Performed By: #### L 501.5600 #### [facility] [address] [place], [address] CBC W/Diff, Automatedon 06-28 Absolute Lymph 1.43 X10 3/uL Normal 0.83-4.51 [facility] Comment on above: Order Comment: Order Date: 07/18/25 Order Info: 0184-1 - CBCD Performed By: #### L 501.9985, L500.4100, L500.4050, L501.5200, L100.0100 #### [facility] [address] [place], [address] Absolute Neut 3.1 X10 3/uL Normal 2.0-7.7 [facility] Comment on above: Order Comment: Order Date: 07/18/25 Order Info: 0184-1 - CBCD Performed By: #### L 501.9985, L500.4100, L500.4050, L501.5200, L100.0100 #### [facility] [address] [place], [address] Basophils/100 WBC (Bld) 0.6 % Normal 0-1 [facility] Comment on above: Order Comment: Order Date: 07/18/25 Order Info: 0184-1 - CBCD Performed By: #### L 501.9985, L500.4100, L500.4050, L501.5200, L100.0100 #### [facility] [address] [place], [address] Eosinophils/100 WBC (Bld) 2.5 % Normal 0-5 [facility] Comment on above: Order Comment: Order Date: 07/18/25 Order Info: 0184-1 - CBCD Performed By: #### L 501.9985, L500.4100, L500.4050, L501.5200, L100.0100 #### [facility] [address] [place], [address] Erythrocyte distribution width (RBC) [Ratio] 13.7 % Normal 11.6-14.6 [facility] Comment on above: Order Comment: Order Date: 07/18/25 Order Info: 0184-1 - CBCD Performed By: #### L 501.9985, L500.4100, L500.4050, L501.5200, L100.0100 #### [facility] [address] [place], [address] Hematocrit (Bld) [Volume fraction] 39.9 % Normal 37-47 [facility] Comment on above: Order Comment: Order Date: 07/18/25 Order Info: 0184-1 - CBCD Performed By: #### L 501.9985, L500.4100, L500.4050, L501.5200, L100.0100 #### [facility] [address] [place], [address] Hemoglobin (Bld) [Mass/Vol] 13.5 g/dL Normal 12.0-15.0 [facility] Comment on above: Order Comment: Order Date: 07/18/25 Order Info: 0184-1 - CBCD Performed By: #### L 501.9985, L500.4100, L500.4050, L501.5200, L100.0100 #### [facility] [address] [place], [address] IG% 0.200 Normal 0.0-0.9 [facility] Comment on above: Order Comment: Order Date: 07/18/25 Order Info: 0184-1 - CBCD Result Comment: IG% - Immature Granulocytes (promyelocytes, myelocytes and metamyelocytes) > 1% indicates that a LEFT SHIFT is Present. Performed By: #### L 501.9985, L500.4100, L500.4050, L501.5200, L100.0100 #### [facility] [address] [place], [address] Lymphocytes/100 WBC (Bld) 28.0 % Normal 19-41 [facility] Comment on above: Order Comment: Order Date: 07/18/25 Order Info: 0184- - CBCD Performed By: #### L 501.9985, L500.4100, L500.4050, L501.5200, L100.0100 #### [facility] [address] [place], [address] MCH (RBC) [Entitic mass] 29.0 pg Normal 27.0-32.0 [facility] Comment on above: Order Comment: Order Date: 07/18/25 Order Info: 0184-1 - CBCD Performed By: #### L 501.9985, L500.4100, L500.4050, L501.5200, L100.0100 #### [facility] [address] [place], [address] MCHC (RBC) [Mass/Vol] 33.8 g/dL Normal 32-36 [facility] Comment on above: Order Comment: Order Date: 07/18/25 Order Info: 0184-1 - CBCD Performed By: #### L 501.9985, L500.4100, L500.4050, L501.5200, L100.0100 #### [facility] [address] [place], [address] MCV (RBC) [Entitic vol] 85.6 fL Normal 81-99 [facility] Comment on above: Order Comment: Order Date: 07/18/25 Order Info: 0184-1 - CBCD Performed By: #### L 501.9985, L500.4100, L500.4050, L501.5200, L100.0100 #### [facility] [address] [place], [address] Monocytes/100 WBC (Bld) 8.4 % Normal 0-10 [facility] Comment on above: Order Comment: Order Date: 07/18/25 Order Info: 0184- - CBCD Performed By: #### L 501.9985, L500.4100, L500.4050, L501.5200, L100.0100 #### [facility] [address] [place], [address] Neutrophils/100 WBC (Bld) 60.3 % Normal 47-70 [facility] Comment on above: Order Comment: Order Date: 07/18/25 Order Info: 0184-1 - CBCD Performed By: #### L 501.9985, L500.4100, L500.4050, L501.5200, L100.0100 #### [facility] [address] [place], [address] Nucleated RBC (Bld) [#/Vol] 0 10*3/uL Normal 0-5 [facility] Comment on above: Order Comment: Order Date: 07/18/25 Order Info: 0184-1 - CBCD Performed By: #### L 501.9985, L500.4100, L500.4050, L501.5200, L100.0100 #### [facility] [address] [place], [address] Platelet mean volume (Bld) [Entitic vol] 9.2 fL Normal 6.2-12.0 [facility] Comment on above: Order Comment: Order Date: 07/18/25 Order Info: 0184-1 - CBCD Performed By: #### L 501.9985, L500.4100, L500.4050, L501.5200, L100.0100 #### [facility] [address] [place], [address] Platelets (Bld) [#/Vol] 259 10*3/uL Normal 150-450 [facility] Comment on above: Order Comment: Order Date: 07/18/25 Order Info: 0184-1 - CBCD Performed By: #### L 501.9985, L500.4100, L500.4050, L501.5200, L100.0100 #### [facility] [address] [place], [address] RBC (Bld) [#/Vol] 4.66 10*6/uL Normal 4.2-5.4 [facility] Comment on above: Order Comment: Order Date: 07/18/25 Order Info: 0184-1 - CBCD Performed By: #### L 501.9985, L500.4100, L500.4050, L501.5200, L100.0100 #### [facility] [address] [place], [address] RDW SD 42.8 fl Normal 35.1-43.9 [facility] Comment on above: Order Comment: Order Date: 07/18/25 Order Info: 0184-1 - CBCD Performed By: #### L 501.9985, L500.4100, L500.4050, L501.5200, L100.0100 #### [facility] [address] [place], [address] WBC (Bld) [#/Vol] 5.1 10*3/uL Normal 4.4-11.0 [facility] Comment on above: Order Comment: Order Date: 07/18/25 Order Info: [id number] - CBCD Performed By: #### L 501.9985, L500.4100, L500.4050, L501.5200, L100.0100 #### [facility] [address] [place], [address] Comprehensive Metabolic Prof ilon 07-18-2025 Albumin [Mass/Vol] 4.4 g/dL Normal 3.4-4.8 [facility] Comment on above: Order Comment: Order Date: 07/18/25 Order Info: 86-1 - CMP Order Info: [id number] - LIPID Order Info: [id number] - MG Performed By: #### L 506.1001, L400.0001 #### [facility] [address] [place], [address] Albumin/Globulin [Mass ratio] 1.4 {ratio} Normal 0.9-2.4 [facility] Comment on above: Order Comment: Order Date: 07/18/25 Order Info: 785- - CMP Order Info: [id number] - LIPID Order Info: [id number] - MG Performed By: #### L 506.1001, L400.0001 #### [facility] [address] [place], [address] ALK PHOS 111 U/L High 35-104 [facility] Comment on above: Order Comment: Order Date: 07/18/25 Order Info: 86-1 - CMP Order Info: [id number] - LIPID Order Info: [id number] - MG Performed By: #### L 506.1001, L400.0001 #### [facility] [address] [place], [address] ALT [Catalytic activity/Vol] 14 U/L Normal <=34 [facility] Comment on above: Order Comment: Order Date: 07/18/25 Order Info: 86-1 - CMP Order Info: [id number] - LIPID Order Info: [id number] - MG Performed By: #### L 506.1001, L400.0001 #### [facility] [address] [place], [address] AST [Catalytic activity/Vol] 20 U/L Normal <=31 [facility] Comment on above: Order Comment: Order Date: 07/18/25 Order Info: 0786-1 - CMP Order Info: [id number] - LIPID Order Info: [id number] - MG Performed By: #### L 506.1001, L400.0001 #### [facility] [address] [place], [address] Bilirubin [Mass/Vol] 0.81 mg/dL Normal 0.00-1.30 [facility] Comment on above: Order Comment: Order Date: 07/18/25 Order Info: 86-1 - CMP Order Info: [id number] - LIPID Order Info: [id number] - MG Performed By: #### L 506.1001, L400.0001 #### [facility] [address] [place], [address] BUN/CRE 27.5 RATIO High 10-20 [facility] Comment on above: Order Comment: Order Date: 07/18/25 Order Info: 785-1 - CMP Order Info: [id number] - LIPID Order Info: [id number] - MG Performed By: #### L 506.1001, L400.0001 #### [facility] [address] [place], [address] Calcium [Mass/Vol] 9.8 mg/dL Normal 7.6-11.0 [facility] Comment on above: Order Comment: Order Date: 07/18/25 Order Info: 86-1 - CMP Order Info: [id number] - LIPID Order Info: [id number] - MG Performed By: #### L 506.1001, L400.0001 #### [facility] [address] [place], [address] Chloride [Moles/Vol] 99 mmol/L Normal 98-108 [facility] Comment on above: Order Comment: Order Date: 07/18/25 Order Info: 0786-1 - CMP Order Info: [id number] - LIPID Order Info: [id number] - MG Performed By: #### L 506.1001, L400.0001 #### [facility] [address] [place], [address] CO2 [Moles/Vol] 30.0 mmol/L Normal 21.0-32.0 [facility] Comment on above: Order Comment: Order Date: 07/18/25 Order Info: 86-1 - CMP Order Info: [id number] - LIPID Order Info: [id number] - MG Performed By: #### L 506.1001, L400.0001 #### [facility] [address] [place], [address] Creatinine [Mass/Vol] 0.77 mg/dL Normal 0.70-1.20 [facility] Comment on above: Order Comment: Order Date: 07/18/25 Order Info: 785- - CMP Order Info: [id number] - LIPID Order Info: [id number] - MG Performed By: #### L 506.1001, L400.0001 #### [facility] [address] [place], [address] GAP 11 Normal 5-15 [facility] Comment on above: Order Comment: Order Date: 07/18/25 Order Info: 785- - CMP Order Info: [id number] - LIPID Order Info: [id number] - MG Performed By: #### L 506.1001, L400.0001 #### [facility] [address] [place], [address] GFR/1.73 sq M.predicted among non-blacks MDRD (S/P/Bld) [Vol rate/Area] 85 mL/min/{1.73_m2} Normal >60 [facility] Comment on above: Order Comment: Order Date: 07/18/25 Order Info: 0786-1 - CMP Order Info: [id number] - LIPID Order Info: [id number] - MG Result Comment: mL/m in/1.73m2 CKD-EPI Creatinine Equation (2020) Performed By: #### L 506.1001, L400.0001 #### [facility] [address] [place], [address] Globulin (S) [Mass/Vol] 3.1 g/dL Normal 2.2-4.2 [facility] Comment on above: Order Comment: Order Date: 07/18/25 Order Info: 785-1 - CMP Order Info: [id number] - LIPID Order Info: [id number] - MG Performed By: #### L 506.1001, L400.0001 #### [facility] [address] [place], [address] Glucose [Mass/Vol] 106 mg/dL High 70-99 [facility] Comment on above: Order Comment: Order Date: 07/18/25 Order Info: 785- - CMP Order Info: [id number] - LIPID Order Info: [id number] - MG Performed By: #### L 506.1001, L400.0001 #### [facility] [address] [place], [address] Potassium [Moles/Vol] 3.2 mmol/L Low 3.3-5.1 [facility] Comment on above: Order Comment: Order Date: 07/18/25 Order Info: 0786- - CMP Order Info: [id number] - LIPID Order Info: [id number] - MG Performed By: #### L 506.1001, L400.0001 #### [facility] [address] [place], [address] Sodium [Moles/Vol] 140 mmol/L Normal 133-145 [facility] Comment on above: Order Comment: Order Date: 07/18/25 Order Info: 0786-1 - CMP Order Info: [id number] - LIPID Order Info: [id number] - MG Performed By: #### L 506.1001, L400.0001 #### [facility] [address] [place], [address] T PROT 7.4 g/dL Normal 5.9-8.4 [facility] Comment on above: Order Comment: Order Date: 07/18/25 Order Info: 0786-1 - CMP Order Info: [id number] - LIPID Order Info: [id number] - MG Performed By: #### L 506.1001, L400.0001 #### [facility] [address] [place], [address] Urea nitrogen [Mass/Vol] 21 mg/dL High 4-19 [facility] Comment on above: Order Comment: Order Date: 07/18/25 Order Info: 07 - CMP Order Info: [id number] - LIPID Order Info: [id number] - MG Performed By: #### L 506.1001, L400.0001 #### [facility] [address] [place], [address] Hemoglobin A1con 07-18-2025 HbA1c (Bld) [Mass fraction] 6.1 % High <=5.6 [facility] Comment on above: Order Comment: Order Date: 07/18/25 Order Info: [id number] - A1C Result Comment: Norm al < 5.7 % Prediabetic 5.7 - 6.4 % Diabetic >or= 6.5 % Please note range changes. Performed By: #### L 501.9985, L500.4100, L500.4050, L501.5200, L100.0100 #### [facility] [address] [place], [address] Lipid Profileon 07-18-2025 CHOL:HDL 2.64 Normal [facility] Comment on above: Order Comment: Order Date: 07/18/25 Order Info: 0786-1 - CMP Order Info: [id number] - LIPID Order Info: [id number] - MG Performed By: #### L 506.1001, L400.0001 #### [facility] [address] [place], [address] Cholesterol [Mass/Vol] 193 mg/dL Normal <=200 [facility] Comment on above: Order Comment: Order Date: 07/18/25 Order Info: 0786-1 - CMP Order Info: [id number] - LIPID Order Info: [id number] - MG Result Comment: Chol esterol level, Desirable <200 mg/dL Borderline high cholesterol 200-239 mg/dL High cholesterol >=240 mg/dL Recommendations of the NCEP Adult Treatment Panel for the following risk-cutoff thresholds for the [place] population. Performed By: #### L 506.1001, L400.0001 #### [facility] [address] [place], [address] Cholesterol in HDL [Mass/Vol] 73 mg/dL Normal [facility] Comment on above: Order Comment: Order Date: 07/18/25 Order Info: 0786-1 - CMP Order Info: [id number] - LIPID Order Info: [id number] - MG Result Comment: Liz[place] onal Cholesterol Education Program (NCEP) guidelines: <40 mg/dL: Low HDL-cholesterol (major risk factor for CHD) >= 60 mg/dL: High HDL-cholesterol (negative risk factor for CHD) HDL-cholesterol is affected by a number of factors, e.g. smoking, exercise, hormones, sex and age. Performed By: #### L 506.1001, L400.0001 #### [facility] [address] [place], [address] Cholesterol in LDL [Mass/Vol] 99 mg/dL Normal [facility] Comment on above: Order Comment: Order Date: 07/18/25 Order Info: 0786-1 - CMP Order Info: [id number] - LIPID Order Info: [id number] - MG Result Comment: Bord lnwhlt=625-203 mg/dL Higher Wxfa=294 mg/dL or greater Solorzano Equation 2020 for LDL-C Performed By: #### L 506.1001, L400.0001 #### [facility] [address] [place], [address] Cholesterol in VLDL [Mass/Vol] 24 mg/dL Normal 5-40 [facility] Comment on above: Order Comment: Order Date: 07/18/25 Order Info: 0786-1 - CMP Order Info: [id number] - LIPID Order Info: [id number] - MG Performed By: #### L 506.1001, L400.0001 #### [facility] [address] [place], [address] Triglyceride [Mass/Vol] 119 mg/dL Normal [facility] Comment on above: Order Comment: Order Date: 07/18/25 Order Info: 0786-1 - CMP Order Info: [id number] - LIPID Order Info: [id number] - MG Result Comment: The drugs N-Acetylcysteine and Metamizole may falsely depress this assay. Normal range: <150 mg/dL Borderline High: 150-199 mg/dL High: 200-499 mg/dL Very High: >500 mg/dL Performed By: #### L 506.1001, L400.0001 #### [facility] [address] [place], [address] Magnesiumon 07-18-2025 Magnesium [Mass/Vol] 2.1 mg/dL Normal 1.5-2.2 [facility] Comment on above: Order Comment: Order Date: 07/18/25 Order Info: 0786-1 - CMP Order Info: [id number] - LIPID Order Info: [id number] - MG Performed By: #### L 506.1001, L400.0001 #### [facility] [address] [place], [address] Urinalysis, Completeon 07-18 BACTERIA 3+ /hpf Normal None Seen [facility] Comment on above: Order Comment: Urine , Random Performed By: #### L 506.1001, L400.0001 #### [facility] [address] [place], [address] EPI,SQUAMOUS 5-10 SEEN Normal 5-10 [facility] Comment on above: Order Comment: Urine , Random Performed By: #### L 506.1001, L400.0001 #### [facility] [address] [place], [address] WBC 10-25 SEEN Normal 0-5 [facility] Comment on above: Order Comment: Urine , Random Performed By: #### L 506.1001, L400.0001 #### [facility] [address] [place], [address] Mucus Ql (Urine sed) 0 SEEN Normal [facility] Comment on above: Order Comment: Urine , Random Performed By: #### L 506.1001, L400.0001 #### [facility] [address] [place], [address] RBC 0 SEEN Normal 0-5 [facility] Comment on above: Order Comment: Urine , Random Performed By: #### L 506.1001, L400.0001 #### [facility] [address] [place], [address] Vitamin D,25 Hydroxyon 07-18 Vitamin D 25-OH 90.2 ng/mL Normal 30-100 [facility] Comment on above: Order Comment: Order Date: 07/18/25 Order Info: 0786-1 - CMP Order Info: [id number] - LIPID Order Info: [id number] - MG Result Comment: Bozena min D Status Deficiency: <20 ng/mL (50nmol/L) Insufficiency: 20-30 ng/mL (50-75 nmol/L) Sufficiency: 30-100 ng/mL (75-250 nmol/L) Toxicity: >100 ng/mL (>250 nmol/L) Performed By: #### L 506.1001, L400.0001 #### [facility] [address] [place], [address] Urine Cultureon 02-24-2025 [facility] Order Date: 02/22/25 Order Info: 630-4 - CUUR Organism is too fastidious for routine susceptibility studies. Aerococcus urinae Dale Count >100,000 Normal [facility] Comment on above: Performed By: #### M 100.2200 #### [facility] [address] [place], [place], [id number] Urine cultureOrdered By: Nick Rhodes on 02-22-2025 Bacteria identified Cx Nom (U) Aerococcus urinae Abnormal [facility] Absolute lymphocyte countOrd ered By: Raffy Rhodes on 02-21-2025 Lymphocytes Auto (Unsp spec) [#/Vol] 1.63 10*3/uL 0.83-4.51 [facility] Absolute neutrophil countOrd ered By: Raffy Rhodes on 02-21-2025 Neutrophils (Bld) [#/Vol] 2.3 10*3/uL 2.0-7.7 [facility] Anion gap in Serum or Plasma Ordered By: Raffy Rhodes on 02-21-2025 Anion gap [Moles/Vol] 12 mmol/L 5-15 [facility] Automated lymphocyte count a s percentage of total leukocytesOrdered By: Raffy Rhodes on 02-21-2025 Lymphocytes/100 WBC Auto (Unsp spec) 36.5 % 19-41 [facility] BUN/creatinine ratioOrdered By: Raffy Rhodes on 02-21-2025 Urea nitrogen/Creatinine [Mass ratio] 38.4 mg/mg High 10-20 [facility] Basophil percentageOrdered B y: Raffy Rhodes on 02-21-2025 Basophils/100 WBC (Bld) 0.9 % 0-1 [facility] Bilirubin Test strip Ql (U)O rdered By: Raffy Rhodes on 02-21-2025 Bilirubin Ql (U) Negative Negative [facility] Bilirubin, totalOrdered By: Raffy Rhodes on 02-21-2025 Bilirubin [Mass/Vol] 0.46 mg/dL 0.00-1.30 [facility] CBC W/Diff, Automatedon 01-26 Absolute Lymph 1.63 X10 3/uL Normal 0.83-4.51 [facility] Comment on above: Order Comment: Order Date: 07/18/25 Order Info: 0786-1 - CMP Order Info: [id number] - LIPID Order Info: [id number] - MG Performed By: #### L 506.1001, L400.0001 #### [facility] [address] [place], [address] Absolute Neut 2.3 X10 3/uL Normal 2.0-7.7 [facility] Comment on above: Order Comment: Order Date: 07/18/25 Order Info: 86-1 - CMP Order Info: [id number] - LIPID Order Info: [id number] - MG Performed By: #### L 506.1001, L400.0001 #### [facility] [address] [place], [address] Basophils/100 WBC (Bld) 0.9 % Normal 0-1 [facility] Comment on above: Order Comment: Order Date: 07/18/25 Order Info: 785-1 - CMP Order Info: [id number] - LIPID Order Info: [id number] - MG Performed By: #### L 506.1001, L400.0001 #### [facility] [address] [place], [address] Eosinophils/100 WBC (Bld) 3.8 % Normal 0-5 [facility] Comment on above: Order Comment: Order Date: 07/18/25 Order Info: 785- - CMP Order Info: [id number] - LIPID Order Info: [id number] - MG Performed By: #### L 506.1001, L400.0001 #### [facility] [address] [place], [address] Erythrocyte distribution width (RBC) [Ratio] 14.5 % Normal 11.6-14.6 [facility] Comment on above: Order Comment: Order Date: 07/18/25 Order Info: 86-1 - CMP Order Info: [id number] - LIPID Order Info: [id number] - MG Performed By: #### L 506.1001, L400.0001 #### [facility] [address] [place], [address] Hematocrit (Bld) [Volume fraction] 40.1 % Normal 37-47 [facility] Comment on above: Order Comment: Order Date: 07/18/25 Order Info: 0786-1 - CMP Order Info: [id number] - LIPID Order Info: [id number] - MG Performed By: #### L 506.1001, L400.0001 #### [facility] [address] [place], [address] Hemoglobin (Bld) [Mass/Vol] 12.9 g/dL Normal 12.0-15.0 [facility] Comment on above: Order Comment: Order Date: 07/18/25 Order Info: 785-1 - CMP Order Info: [id number] - LIPID Order Info: [id number] - MG Performed By: #### L 506.1001, L400.0001 #### [facility] [address] [place], [address] IG% 0.200 Normal 0.0-0.9 [facility] Comment on above: Order Comment: Order Date: 07/18/25 Order Info: 785- - CMP Order Info: [id number] - LIPID Order Info: [id number] - MG Result Comment: IG% - Immature Granulocytes (promyelocytes, myelocytes and metamyelocytes) > 1% indicates that a LEFT SHIFT is Present. Performed By: #### L 506.1001, L400.0001 #### [facility] [address] [place], [address] Lymphocytes/100 WBC (Bld) 36.5 % Normal 19-41 [facility] Comment on above: Order Comment: Order Date: 07/18/25 Order Info: 0786-1 - CMP Order Info: [id number] - LIPID Order Info: [id number] - MG Performed By: #### L 506.1001, L400.0001 #### [facility] [address] [place], [address] MCH (RBC) [Entitic mass] 28.5 pg Normal 27.0-32.0 [facility] Comment on above: Order Comment: Order Date: 07/18/25 Order Info: 86-1 - CMP Order Info: [id number] - LIPID Order Info: [id number] - MG Performed By: #### L 506.1001, L400.0001 #### [facility] [address] [place], [address] MCHC (RBC) [Mass/Vol] 32.2 g/dL Normal 32-36 [facility] Comment on above: Order Comment: Order Date: 07/18/25 Order Info: 86-1 - CMP Order Info: [id number] - LIPID Order Info: [id number] - MG Performed By: #### L 506.1001, L400.0001 #### [facility] [address] [place], [address] MCV (RBC) [Entitic vol] 88.7 fL Normal 81-99 [facility] Comment on above: Order Comment: Order Date: 07/18/25 Order Info: 86-1 - CMP Order Info: [id number] - LIPID Order Info: [id number] - MG Performed By: #### L 506.1001, L400.0001 #### [facility] [address] [place], [address] Monocytes/100 WBC (Bld) 7.8 % Normal 0-10 [facility] Comment on above: Order Comment: Order Date: 07/18/25 Order Info: 86-1 - CMP Order Info: [id number] - LIPID Order Info: [id number] - MG Performed By: #### L 506.1001, L400.0001 #### [facility] [address] [place], [address] Neutrophils/100 WBC (Bld) 50.8 % Normal 47-70 [facility] Comment on above: Order Comment: Order Date: 07/18/25 Order Info: 86-1 - CMP Order Info: [id number] - LIPID Order Info: [id number] - MG Performed By: #### L 506.1001, L400.0001 #### [facility] [address] [place], [address] Nucleated RBC (Bld) [#/Vol] 0 10*3/uL Normal 0-5 [facility] Comment on above: Order Comment: Order Date: 07/18/25 Order Info: 785- - CMP Order Info: [id number] - LIPID Order Info: [id number] - MG Performed By: #### L 506.1001, L400.0001 #### [facility] [address] [place], [address] Platelet mean volume (Bld) [Entitic vol] 9.2 fL Normal 6.2-12.0 [facility] Comment on above: Order Comment: Order Date: 07/18/25 Order Info: 785- - CMP Order Info: [id number] - LIPID Order Info: [id number] - MG Performed By: #### L 506.1001, L400.0001 #### [facility] [address] [place], [address] Platelets (Bld) [#/Vol] 247 10*3/uL Normal 150-450 [facility] Comment on above: Order Comment: Order Date: 07/18/25 Order Info: [id number] - CMP Order Info: [id number] - LIPID Order Info: [id number] - MG Performed By: #### L 506.1001, L400.0001 #### [facility] [address] [place], [address] RBC (Bld) [#/Vol] 4.52 10*6/uL Normal 4.2-5.4 [facility] Comment on above: Order Comment: Order Date: 07/18/25 Order Info: [id number] - CMP Order Info: [id number] - LIPID Order Info: [id number] - MG Performed By: #### L 506.1001, L400.0001 #### [facility] [address] [place], [address] RDW SD 47.0 fl High 35.1-43.9 [facility] Comment on above: Order Comment: Order Date: 07/18/25 Order Info: [id number] - CMP Order Info: - LIPID Order Info: - MG Performed By: #### L 506.1001, L400.0001 #### [facility] [address] [place], [address] WBC (Bld) [#/Vol] 4.5 10*3/uL Normal 4.4-11.0 [facility] Comment on above: Order Comment: Order Date: 07/18/25 Order Info: [id number] - CMP Order Info: - LIPID Order Info: - MG Performed By: #### L 506.1001, L400.0001 #### [facility] [address] [place], [place], [address] Calcium oxalate crystals det ection in urine sediment by light microscopyOrdered By: Raffy Rhodes on 02-21-2025 Calcium oxalate crystals LM Ql (Urine sed) 1+ /hpf [facility] Calculated very low density lipoprotein (VLDL) cholesterol measurementOrdered By: Raffy Rhodes on 02-21-2025 Calculated very low density lipoprotein (VLDL) cholesterol measurement 20 mg/dL 5-40 [facility] Carbon dioxide, total [Moles /volume] in Central venous bloodOrdered By: Raffy Rhodes on 02-21-2025 CO2 [Moles/Vol] 25.0 mmol/L 21.0-32.0 [facility] Chloride assayOrdered By: Clementina Rhodes on 02-21-2025 Chloride [Moles/Vol] 107 mmol/L 98-108 [facility] Comprehensive Metabolic Prof ilon 02-21-2025 Albumin [Mass/Vol] 4.1 g/dL Normal 3.4-4.8 [facility] Comment on above: Order Comment: Order Date: 08/16/24Order Info: 86 - CMPOrder Info: - LIPID Performed By: #### L 501.5600 #### [facility] [address] [place], [address] Albumin/Globulin [Mass ratio] 1.5 {ratio} Normal 0.9-2.4 [facility] Comment on above: Order Comment: Order Date: 08/16/24Order Info: 785- - CMPOrder Info: - LIPID Performed By: #### L 501.5600 #### [facility] [address] [place], [address] ALK PHOS 104 U/L Normal 35-104 [facility] Comment on above: Order Comment: Order Date: 08/16/24Order Info: [id number] - CMPOrder Info: - LIPID Performed By: #### L 501.5600 #### [facility] [address] [place], [address] ALT [Catalytic activity/Vol] 14 U/L Normal <=34 [facility] Comment on above: Order Comment: Order Date: 08/16/24Order Info: [id number] - CMPOrder Info: - LIPID Performed By: #### L 501.5600 #### [facility] [address] [place], [address] AST [Catalytic activity/Vol] 19 U/L Normal <=31 [facility] Comment on above: Order Comment: Order Date: 08/16/24Order Info: [id number] - CMPOrder Info: - LIPID Performed By: #### L 501.5600 #### [facility] [address] [place], [address] Bilirubin [Mass/Vol] 0.46 mg/dL Normal 0.00-1.30 [facility] Comment on above: Order Comment: Order Date: 08/16/24Order Info: 785-09 - CMPOrder Info: [id number] - LIPID Performed By: #### L 501.5600 #### [facility] [address] [place], [address] BUN/CRE 38.4 RATIO High 10-20 [facility] Comment on above: Order Comment: Order Date: 08/16/24Order Info: 0786-1 - CMPOrder Info: [id number] - LIPID Performed By: #### L 501.5600 #### [facility] [address] [place], [address] Calcium [Mass/Vol] 9.2 mg/dL Normal 7.6-11.0 [facility] Comment on above: Order Comment: Order Date: 08/16/24Order Info: 785- - CMPOrder Info: [id number] - LIPID Performed By: #### L 501.5600 #### [facility] [address] [place], [address] Chloride [Moles/Vol] 107 mmol/L Normal 98-108 [facility] Comment on above: Order Comment: Order Date: 08/16/24Order Info: 785- - CMPOrder Info: [id number] - LIPID Performed By: #### L 501.5600 #### [facility] [address] [place], [address] CO2 [Moles/Vol] 25.0 mmol/L Normal 21.0-32.0 [facility] Comment on above: Order Comment: Order Date: 08/16/24Order Info: 0786- - CMPOrder Info: [id number] - LIPID Performed By: #### L 501.5600 #### [facility] [address] [place], [address] Creatinine [Mass/Vol] 0.72 mg/dL Normal 0.70-1.20 [facility] Comment on above: Order Comment: Order Date: 08/16/24Order Info: 07- - CMPOrder Info: [id number] - LIPID Performed By: #### L [id number] #### [facility] [address] [place], [address] GAP 12 Normal 5-15 [facility] Comment on above: Order Comment: Order Date: 08/16/24Order Info: [id number] - CMPOrder Info: [id number] - LIPID Performed By: #### L [id number] #### [facility] [address] [place], [address] GFR/1.73 sq M.predicted among non-blacks MDRD (S/P/Bld) [Vol rate/Area] 93 mL/min/{1.73_m2} Normal >60 [facility] Comment on above: Order Comment: Order Date: 08/16/24Order Info: [id number] - CMPOrder Info: [id number] - LIPID Result Comment: mL/m in/1.73m2 CKD-EPI Creatinine Equation (2020) Performed By: #### L [id number] #### [facility] [address] [place], [address] Globulin (S) [Mass/Vol] 2.7 g/dL Normal 2.2-4.2 [facility] Comment on above: Order Comment: Order Date: 08/16/24Order Info: [id number] - CMPOrder Info: [id number] - LIPID Performed By: #### L [id number] #### [facility] [address] [place], [address] Glucose [Mass/Vol] 98 mg/dL Normal 70-99 [facility] Comment on above: Order Comment: Order Date: 08/16/24Order Info: [id number] - CMPOrder Info: [id number] - LIPID Performed By: #### L [id number] #### [facility] [address] [place], [address] Potassium [Moles/Vol] 3.9 mmol/L Normal 3.3-5.1 [facility] Comment on above: Order Comment: Order Date: 08/16/24Order Info: [id number] - CMPOrder Info: [id number] - LIPID Performed By: #### L [id number] #### [facility] [address] [place], [address] Sodium [Moles/Vol] 144 mmol/L Normal 133-145 [facility] Comment on above: Order Comment: Order Date: 08/16/24Order Info: [id number] - CMPOrder Info: [id number] - LIPID Performed By: #### L [id number] #### [facility] [address] [place], [address] T PROT 6.8 g/dL Normal 5.9-8.4 [facility] Comment on above: Order Comment: Order Date: 08/16/24Order Info: [id number] - CMPOrder Info: [id number] - LIPID Performed By: #### L [id number] #### [facility] [address] [place], [address] Urea nitrogen [Mass/Vol] 28 mg/dL High 4-19 [facility] Comment on above: Order Comment: Order Date: 08/16/24Order Info: [id number] - CMPOrder Info: [id number] - LIPID Performed By: #### L [id number] #### [facility] [address] [place], [address] Eosinophil percentageOrdered By: Raffy Rhodes on 02-21-2025 Eosinophils/100 WBC (Bld) 3.8 % 0-5 [facility] Erythrocyte distribution wid th ratioOrdered By: Raffy Rhodes on 02-21-2025 Erythrocyte distribution width (RBC) [Ratio] 14.5 % 11.6-14.6 [facility] Erythrocyte distribution wid th standard deviationOrdered By: Raffy Rhodes on 02-21-2025 Erythrocyte distribution width (RBC) [Ratio] 47.0 fl High 35.1-43.9 [facility] Glomerular filtration rate ( GFR) estimation/1.73 sq m using serum, plasma, or whole bOrdered By: Raffy Rhodes on 02-21-2025 GFR/1.73 sq M.predicted among non-blacks MDRD (S/P/Bld) [Vol rate/Area] 93 mL/min/{1.73_m2} >60 [facility] Comment on above: mL/min/1.73m2 CKD-EP I Creatinine Equation (2020) Hematocrit Auto (Bld) [Volum e fraction]Ordered By: Raffy Rhodes on 02-21-2025 Hematocrit (Bld) [Volume fraction] 40.1 % 37-47 [facility] Hemoglobin A1con 02-21-2025 HbA1c (Bld) [Mass fraction] 6.2 % High <=5.6 [facility] Comment on above: Order Comment: Order Date: 08/16/24Order Info: [id number] - A1C Result Comment: Norm al < 5.7 % Prediabetic 5.7 - 6.4 % Diabetic >or= 6.5 % Please note range changes. Performed By: #### L [id number] #### [facility] [address] [place], [address] Hemoglobin A1c percentageOrd ered By: Raffy Rhodes on 02-21-2025 HbA1c (Bld) [Mass fraction] 6.2 % High <5.7 [facility] Comment on above: Normal < 5.7 % Predi abetic 5.7 - 6.4 % Diabetic >or= 6.5 % Please note range changes. Hemoglobin measurementOrdere d By: Raffy Rhodes on 02-21-2025 Hemoglobin (Bld) [Mass/Vol] 12.9 g/dL 12.0-15.0 [facility] Immature granulocytes/100 WB C Auto (Bld)Ordered By: Raffy Rhodes on 02-21-2025 Immature granulocytes/100 WBC (Bld) 0.200 % 0.0-0.9 [facility] Comment on above: IG% - Immature Granu locytes (promyelocytes, myelocytes and metamyelocytes) > 1% indicates that a LEFT SHIFT is Present. Ketones Test strip Ql (U)Ord ered By: Raffy Rhodes on 02-21-2025 Ketones Ql (U) Negative Negative [facility] LDL calc ser/plasOrdered By: Raffy Rhodes on 02-21-2025 Cholesterol in LDL [Mass/Vol] 86 mg/dL [facility] Comment on above: Wlfpwsfkhm=203-337 m g/dL & Higher Ugcw=343 mg/dL or greater Laboratory - Chemistry and C hemistry - challengeOrdered By: Raffy Rhodes on 02-21-2025 AST [Catalytic activity/Vol] 19 U/L <32 [facility] Lipid Profileon 02-21-2025 CHOL:HDL 2.62 Normal [facility] Comment on above: Order Comment: Order Date: 08/16/24Order Info: [id number] - CMPOrder Info: [id number] - LIPID Performed By: #### L [id number] #### [facility] [address] [place], [address] Cholesterol [Mass/Vol] 171 mg/dL Normal <=200 [facility] Comment on above: Order Comment: Order Date: 08/16/24Order Info: [id number] - CMPOrder Info: [id number] - LIPID Result Comment: Chol esterol level, Desirable <200 mg/dL Borderline high cholesterol 200-239 mg/dL High cholesterol >=240 mg/dL Recommendations of the NCEP Adult Treatment Panel for the following risk-cutoff thresholds for the [place] population. Performed By: #### L [id number] #### [facility] [address] [place], [address] Cholesterol in HDL [Mass/Vol] 65 mg/dL Normal [facility] Comment on above: Order Comment: Order Date: 08/16/24Order Info: [id number] - CMPOrder Info: [id number] - LIPID Result Comment: [place] onal Cholesterol Education Program (NCEP) guidelines: <40 mg/dL: Low HDL-cholesterol (major risk factor for CHD) >= 60 mg/dL: High HDL-cholesterol (negative risk factor for CHD) HDL-cholesterol is affected by a number of factors, e.g. smoking, exercise, hormones, sex and age. Performed By: #### L [id number] #### [facility] [address] [place], [address] Cholesterol in LDL [Mass/Vol] 86 mg/dL Normal [facility] Comment on above: Order Comment: Order Date: 08/16/24Order Info: [id number] - CMPOrder Info: [id number] - LIPID Result Comment: Bord ppaiun=689-641 mg/dL Higher Jggc=118 mg/dL or greater Performed By: #### L [id number] #### [facility] [address] [place], [place], [address] Cholesterol in VLDL [Mass/Vol] 20 mg/dL Normal 5-40 [facility] Comment on above: Order Comment: Order Date: 08/16/24Order Info: [id number] - CMPOrder Info: [id number] - LIPID Performed By: #### L [id number] #### [facility] [address] [place], [address] Triglyceride [Mass/Vol] 99 mg/dL Normal [facility] Comment on above: Order Comment: Order Date: 08/16/24Order Info: [id number] - CMPOrder Info: [id number] - LIPID Result Comment: The drugs N-Acetylcysteine and Metamizole may falsely depress this assay. Normal range: <150 mg/dL Borderline High: 150-199 mg/dL High: 200-499 mg/dL Very High: >500 mg/dL Performed By: #### L [id number] #### [facility] [address] [place], [place], [address] MCV (mean corpuscular volume ) determinationOrdered By: Raffy Rhodes on 02-21-2025 MCV (RBC) [Entitic vol] 88.7 fL 81-99 [facility] Mean corpuscular hemoglobin (MCH) determinationOrdered By: Raffy Rhodes on 02-21-2025 MCH (RBC) [Entitic mass] 28.5 pg 27.0-32.0 [facility] Mean corpuscular hemoglobin concentration (MCHC) determinationOrdered By: Raffy Rhodes on 02-21-2025 MCHC (RBC) [Mass/Vol] 32.2 g/dL 32-36 [facility] Mean platelet volume determi nationOrdered By: Raffy Rhodes on 02-21-2025 Platelet mean volume (Bld) [Entitic vol] 9.2 fL 6.2-12.0 [facility] Microscopic analysis of urin e for red blood cells (RBC)Ordered By: Raffy Rhodes on 02-21-2025 Microscopic analysis of urine for red blood cells (RBC) 0-5 SEEN /hpf 0-5 [facility] Monocyte percentageOrdered B y: Raffy Rhodes on 02-21-2025 Monocytes/100 WBC (Bld) 7.8 % 0-10 [facility] Mucus LM Ql (Urine sed)Order ed By: Raffy Rhodes on 02-21-2025 Mucus Ql (Urine sed) 2+ /hpf [facility] Neutrophil percentageOrdered By: Raffy Rhodes on 02-21-2025 Neutrophils/100 WBC (Bld) 50.8 % 47-70 [facility] Nitrite Test strip Ql (U)Ord ered By: Raffy Rhodes on 02-21-2025 Nitrite Ql (U) Negative Negative [facility] Nucleated red blood cell per centageOrdered By: Raffy Rhodes on 02-21-2025 Nucleated RBC/100 WBC (Bld) [Ratio] 0 % 0-5 [facility] Platelet countOrdered By: Clementina Rhodes on 02-21-2025 Platelets (Bld) [#/Vol] 247 10*3/uL 150-450 [facility] Potassium measurement (mass/ volume)Ordered By: Raffy Rhodes on 02-21-2025 Potassium (Unsp spec) [Mass/Vol] 3.9 mmol/L 3.3-5.1 [facility] Protein Test strip Ql (U)Ord ered By: Raffy Rhodes on 02-21-2025 Protein Ql (U) 30 mg/dl High Negative [facility] RBC Auto (Bld) [#/Vol]Ordere d By: Raffy Rhodes on 02-21-2025 RBC (Bld) [#/Vol] 4.52 10*6/uL 4.2-5.4 [facility] Screening total cholesterol/ high density lipoprotein (HDL) cholesterol ratioOrdered By: Raffy Rhodes on 02-21-2025 Cholesterol.total/Choles terol in HDL [Mass ratio] 2.62 {ratio} [facility] Serum creatinine measurement (mass/volume)Ordered By: Raffy Rhodes on 02-21-2025 Creatinine [Mass/Vol] 0.72 mg/dL 0.70-1.20 [facility] Serum globulin measurementOr dered By: Raffy Rhodes on 02-21-2025 Globulin (S) [Mass/Vol] 2.7 g/dL 2.2-4.2 [facility] Serum glucose measurement (m ass/volume)Ordered By: Raffy Rhodes on 02-21-2025 Glucose [Mass/Vol] 98 mg/dL 70-99 [facility] Serum or plasma alanine graham otransferase (ALT) measurementOrdered By: Raffy Rhodes on 02-21-2025 ALT [Catalytic activity/Vol] 14 U/L <35 [facility] Serum or plasma albumin rubina urement (mass/volume)Ordered By: Raffy Rhodes on 02-21-2025 Albumin [Mass/Vol] 4.1 g/dL 3.4-4.8 [facility] Serum or plasma albumin/glob ulin mass ratioOrdered By: Raffy Rhodes on 02-21-2025 Albumin/Globulin [Mass ratio] 1.5 {ratio} 0.9-2.4 [facility] Serum or plasma alkaline perri sphatase measurementOrdered By: Raffy Rhodes on 02-21-2025 ALP [Catalytic activity/Vol] 104 U/L 35-104 [facility] Serum or plasma calcium rubina urement (mass/volume)Ordered By: Raffy Rhodes on 02-21-2025 Calcium [Mass/Vol] 9.2 mg/dL 7.6-11.0 [facility] Serum or plasma cholesterol in HDL measurement (mass/volume)Ordered By: Raffy Rhodes on 02-21-2025 Cholesterol in HDL [Mass/Vol] 65 mg/dL >40 [facility] Comment on above: National Cholesterol Education Program (NCEP) guidelines:<40 mg/dL: Low HDL-cholesterol (major risk factor for CHD)>= 60 mg/dL: High HDL-cholesterol (negative risk factor for CHD)HDL-cholesterol is affected by a number of factors, e.g. smoking, exercise, hormones, sex and age. Serum or plasma cholesterol measurement (mass/volume)Ordered By: Raffy Rhodes on 02-21-2025 Cholesterol [Mass/Vol] 171 mg/dL <201 [facility] Comment on above: Cholesterol level, D esirable <200 mg/dLBorderline high cholesterol 200-239 mg/dLHigh cholesterol >=240 mg/dLRecommendations of the NCEP Adult Treatment Panel for the following risk-cutoff thresholds for the [place] population. Serum or plasma urea nitroge n measurement (mass/volume)Ordered By: Raffy Rhodes on 02-21-2025 Urea nitrogen [Mass/Vol] 28 mg/dL High 4-19 [facility] Sodium levelOrdered By: Raffy Rhodes on 02-21-2025 Sodium [Moles/Vol] 144 mmol/L 133-145 [facility] Squamous epithelial cells de tection in urine sediment by light microscopyOrdered By: Raffy Rhodes on 02-21-2025 Epithelial cells.squamous LM Ql (Urine sed) 5-10 SEEN /hpf 5-10 [facility] Total proteinOrdered By: Nick Rhodes on 02-21-2025 Protein [Mass/Vol] 6.8 g/dL 5.9-8.4 [facility] Triglycerides measurementOrd ered By: Raffy Rhodes on 02-21-2025 Triglyceride [Mass/Vol] 99 mg/dL <199 [facility] Comment on above: The drugs N-Acetylcy steine and Metamizole may falsely depress this assay. Normal range: <150 mg/dLBorderline High: 150-199 mg/dLHigh: 200-499 mg/dLVery High: >500 mg/dL Urinalysis, Completeon 02-21 RBC 0-5 SEEN Normal 0-5 [facility] Comment on above: Order Comment: Order Date: 07/18/25 Order Info: [id number] - CMP Order Info: [id number] - LIPID Order Info: [id number] - MG Performed By: #### L 506.1001, L400.0001 #### [facility] [address] [place], [address] CA OX CRYSTAL 1+ /hpf Normal [facility] Comment on above: Order Comment: Order Date: 07/18/25 Order Info: [id number] - CMP Order Info: [id number] - LIPID Order Info: [id number] - MG Performed By: #### L 506.1001, L400.0001 #### [facility] [address] [place], [address] Mucus Ql (Urine sed) 2+ /hpf Normal [facility] Comment on above: Order Comment: Order Date: 07/18/25 Order Info: [id number] - CMP Order Info: [id number] - LIPID Order Info: [id number] - MG Performed By: #### L 506.1001, L400.0001 #### [facility] [address] [place], [address] WBC 10-25 SEEN Normal 0-5 [facility] Comment on above: Order Comment: Order Date: 07/18/25 Order Info: [id number] - CMP Order Info: [id number] - LIPID Order Info: [id number] - MG Performed By: #### L 506.1001, L400.0001 #### [facility] [address] [place], [address] BACTERIA 3+ /hpf Normal None Seen [facility] Comment on above: Order Comment: Order Date: 07/18/25 Order Info: [id number] - CMP Order Info: [id number] - LIPID Order Info: [id number] - MG Performed By: #### L 506.1001, L400.0001 #### [facility] [address] [place], [address] EPI,SQUAMOUS 5-10 SEEN Normal 5-10 [facility] Comment on above: Order Comment: Order Date: 07/18/25 Order Info: [id number] - CMP Order Info: [id number] - LIPID Order Info: [id number] - MG Performed By: #### L 506.1001, L400.0001 #### [facility] [address] [place], [address] Urine clarityOrdered By: Nick Rhodes on 02-21-2025 Clarity (U) Cloudy Clear [facility] Urine color determinationOrd ered By: Raffy Rhodes on 02-21-2025 Color (U) Yellow Yellow [facility] Urine glucose detectionOrder ed By: Raffy Rhodes on 02-21-2025 Glucose Ql (U) Normal mg/dl Normal [facility] Urine leukocyte esterase det ection by dipstickOrdered By: Raffy Rhodes on 02-21-2025 Leukocyte esterase Test strip Ql (U) 100 /ul High Negative [facility] Urine pHOrdered By: Raffy peters on 02-21-2025 pH (U) 5.0 [pH] 5.0 - 8.0 [facility] Urine sediment bacteria coun t by microscopy (number/high power field)Ordered By: Raffy Rhodes on 02-21-2025 Bacteria LM.HPF (Urine sed) [#/Area] 3 /[HPF] None Seen [facility] Urine specific gravity measu rementOrdered By: Raffy Rhodes on 02-21-2025 Specific gravity (U) [Rel density] 1.025 1.002-1.030 [facility] Urine urobilinogen measureme ntOrdered By: Raffy Rhodes on 02-21-2025 Urobilinogen Ql (U) Normal mg/dl Normal [facility] Vitamin D,25 Hydroxyon 02-21 Vitamin D 25-OH 61.5 ng/mL Normal 30-100 [facility] Comment on above: Order Comment: Order Date: 07/18/25 Order Info: [id number] - CMP Order Info: [id number] - LIPID Order Info: [id number] - MG Result Comment: Bozena min D Status Deficiency: <20 ng/mL (50nmol/L) Insufficiency: 20-30 ng/mL (50-75 nmol/L) Sufficiency: 30-100 ng/mL (75-250 nmol/L) Toxicity: >100 ng/mL (>250 nmol/L) Performed By: #### L 506.1001, L400.0001 #### [facility] [place], [address] White blood cell (WBC) count Ordered By: Raffy Rhodes on 02-21-2025 WBC (Bld) [#/Vol] 4.5 10*3/uL 4.4-11.0 [facility] White blood cell countOrdere d By: Raffy Rhodes on 02-21-2025 White blood cell count 10-25 SEEN /hpf 0-5 [facility] Dexa Bone Density Studyon Dexa Bone Density Study [facility] Imaging Services [address] [place] [address] Dexa Bone Density Study MR#: [id number] Acct: [id number] Name: YANCI RHODES Rep #: [id number] : 1960 F 64 From: Stu chavez DO PCP: Dr. Raffy Rhodes MD Status: [facility] Study: Dexa Bone Density Study Date of Exam: 09/28/24 Exam# [id number] Ordering Dr: Raffy Rhodes MD [id number] STUDY: DUAL ENERGY X-RAY ABSORPTIOMETRY / DXA [...] EST , CC: Dr. Raffy Rhodes MD [employer] Operator: Signed Normal [facility] SCRN MAMM (CAD)W/RONIT Duron n 09-28-2024 SCRN MAMM (CAD)W/RONIT [facility] Imaging Services [address] [place] [address] SCRN MAMM (CAD)W/RONIT BILAT MR#: [id number] Acct: [id number] Name: YANCI RHODES Rep #: [id number] : 1960 F 64 From: Johnnie Keys MD PCP: Dr. Raffy Rhodes MD Status: REG CLI Study: SCRN MAMM (CAD)W/RONIT BILAT Date of Exam: 11/21 Exam# [id number] Ordering Dr: Raffy Rhodes MD [id number] MAMMOGRAPHY - BILATERAL SCREENING 3-D TOMOSYNTHESIS REASON [...] Signed: Peng Keys MD at 8:10 EST , CC: Dr. Raffy Rhodes MD [employer] Operator: Signed Normal [facility] Basophil percentageOrdered B y: Gricelda Workman on 08-09-2023 Basophil percentage 10-25 SEEN /hpf 0-5 [facility] Bilirubin Test strip Ql (U)O rdered By: Gricelda Workman on 08-09-2023 Bilirubin Ql (U) Negative Negative [facility] Culture, urineOrdered By: Janeth Workman on 08-09-2023 Bacteria identified Cx Nom (U) Positive [facility] Ketones Test strip Ql (U)Ord ered By: Gricelda Workman on 08-09-2023 Ketones Ql (U) Negative Negative [facility] Mucus LM Ql (Urine sed)Order ed By: Gricelda Workman on 08-09-2023 Mucus Ql (Urine sed) 0 SEEN /hpf [facility] Nitrite Test strip Ql (U)Ord ered By: Gricelda Workman on 08-09-2023 Nitrite Ql (U) Negative Negative [facility] Protein Test strip Ql (U)Ord ered By: Gricelda Workman on 08-09-2023 Protein Ql (U) 15 mg/dl Negative [facility] Squamous epithelial cells de tection in urine sediment by light microscopyOrdered By: Gricelda Workman on 08-09-2023 Epithelial cells.squamous LM Ql (Urine sed) 10-25 SEEN /hpf 5-10 [facility] Urine blood detectionOrdered By: Gricelda Workman on 08-09-2023 RBC Ql (U) 10 /ul Negative [facility] RBC Ql (U) 0-5 SEEN /hpf 0-5 [facility] Urine clarityOrdered By: Gricelda Workman on 08-09-2023 Clarity (U) Sl. Cloudy Clear [facility] Urine color determinationOrd ered By: Gricelda Workman on 08-09-2023 Color (U) Yellow Yellow [facility] Urine glucose detectionOrder ed By: Gricelda Workman on 08-09-2023 Glucose Ql (U) Normal mg/dl Normal [facility] Urine leukocyte esterase det ection by dipstickOrdered By: Gricelda Workman on 08-09-2023 Leukocyte esterase Test strip Ql (U) 100 /ul Negative [facility] Urine pHOrdered By: Gricelda Forbes iff on 08-09-2023 pH (U) 6.5 [pH] 5.0 - 8.0 [facility] Urine sediment bacteria coun t by microscopy (number/high power field)Ordered By: Gricelda Workman on 08-09-2023 Bacteria LM.HPF (Urine sed) [#/Area] 1 /[HPF] None Seen [facility] Urine specific gravity measu rementOrdered By: Gricelda Workman on 08-09-2023 Specific gravity (U) [Rel density] 1.010 1.002-1.030 [facility] Urobilinogen Auto test strip Ql (U)Ordered By: Gricelda Workman on 08-09-2023 Urobilinogen Ql (U) Normal mg/dl Normal [facility] Absolute lymphocyte countOrd ered By: Dr. Rhodes on 09-29-2022 Lymphocytes Auto (Unsp spec) [#/Vol] 1.54 10*3/uL 0.83-4.51 [facility] Basophil percentageOrdered B y: Dr. Rhodes on 09-29-2022 Basophil percentage 10-25 SEEN /hpf 0-5 [facility] Basophils/100 WBC (Bld) 0.9 % 0-1 [facility] Bilirubin [Mass/Vol] 0.70 mg/dL 0.20-1.00 [facility] Comment on above: For patients on eltr ombopag therapy, use of Dimension [place] TBIL is not recommended. Chloride [Moles/Vol] 105 mmol/L 98-107 [facility] Cholesterol [Mass/Vol] 221 mg/dL <200 [facility] Comment on above: <200 mg/dL Desirable 200-240 mg/dL Borderline >240 mg/dL High Risk Eosinophils/100 WBC (Bld) 3.7 % 0-5 [facility] Glucose [Mass/Vol] 106 mg/dL 74-106 [facility] Comment on above: Fasting Glucose resu lt from 100 to 125 mg/dL suggests IMPAIRED HOMEOSTASIS per A.D.A. criteria. Neutrophils (Bld) [#/Vol] 2.5 10*3/uL 2.0-7.7 [facility] Neutrophils/100 WBC (Bld) 53.7 % 47-70 [facility] Potassium [Moles/Vol] 4.3 mmol/L 3.5-5.1 [facility] Protein [Mass/Vol] 6.8 g/dL 6.4-8.2 [facility] Sodium [Moles/Vol] 140 mmol/L 136-145 [facility] Triglyceride [Mass/Vol] 201 mg/dL <199 [facility] Comment on above: The drugs N-Acetylcy steine and Metamizole may falsely depress this assay.Serum Triglycerides Reference Interval Normal <150 mg/dL Borderline high 150 - 199 mg/dL High 200 - 499 mg/dL Very High > or = 500 mg/dL WBC (Bld) [#/Vol] 4.6 10*3/uL 4.4-11.0 [facility] Bilirubin Test strip Ql (U)O rdered By: Dr. Rhodes on 09-29-2022 Bilirubin Ql (U) Negative Negative [facility] Blood erythrocytes count (nu mber/volume)Ordered By: Dr. Rhodes on 09-29-2022 RBC (Bld) [#/Vol] 4.94 10*6/uL 4.2-5.4 [facility] Blood hemoglobin measurement (mass/volume)Ordered By: Dr. Rhodes on 09-29-2022 Hemoglobin (Bld) [Mass/Vol] 13.9 g/dL 12.0-15.0 [facility] Blood lymphocytes/100 leukoc ytesOrdered By: Dr. Rhodes on 09-29-2022 Lymphocytes/100 WBC (Bld) 33.3 % 19-41 [facility] Blood monocytes/100 leukocyt esOrdered By: Dr. Rhodes on 09-29-2022 Monocytes/100 WBC (Bld) 8.2 % 0-10 [facility] Blood platelet mean volumeOr dered By: Dr. Rhodes on 09-29-2022 Platelet mean volume (Bld) [Entitic vol] 9.1 fL 6.2-12.0 [facility] Determination of erythrocyte mean corpuscular volume (MCV)Ordered By: Dr. Rhodes on 09-29-2022 MCV (RBC) [Entitic vol] 87.7 fL 81-99 [facility] Hematocrit Auto (Bld) [Volum e fraction]Ordered By: Dr. Rhodes on 09-29-2022 Hematocrit (Bld) [Volume fraction] 43.3 % 37-47 [facility] Ketones Test strip Ql (U)Ord ered By: Dr. Rhodes on 09-29-2022 Ketones Ql (U) Negative Negative [facility] - Chemistry and C hemistry - challengeOrdered By: Dr. Rhodes on 09-29-2022 ALP [Catalytic activity/Vol] 120 U/L 45-117 [facility] ALT [Catalytic activity/Vol] 22 U/L 13-56 [facility] CO2 [Moles/Vol] 29.0 mmol/L 21.0-32.0 [facility] Globulin (S) [Mass/Vol] 3.0 g/dL 2.2-4.2 [facility] Urea nitrogen/Creatinine [Mass ratio] 36.3 mg/mg 10-20 [facility] [facility] - Hematology and Cell countsOrdered By: Dr. Rhodes on 09-29-2022 Erythrocyte distribution width (RBC) [Entitic vol] 45.1 fL 35.1-43.9 [facility] Erythrocyte distribution width (RBC) [Ratio] 14.0 % 11.6-14.6 [facility] Immature granulocytes/100 WBC (Bld) 0.200 % 0.0-0.9 [facility] Comment on above: IG% - Immature Granu locytes (promyelocytes, myelocytes and metamyelocytes) > 1% indicates that a LEFT SHIFT is Present. MCH (RBC) [Entitic mass] 28.1 pg 27.0-32.0 [facility] Nucleated RBC/100 WBC (Bld) [Ratio] 0 % 0-5 [facility] MCHC Auto (RBC) [Mass/Vol]Or dered By: Dr. Rhodes on 09-29-2022 MCHC (RBC) [Mass/Vol] 32.1 g/dL 32-36 [facility] Mucus LM Ql (Urine sed)Order ed By: Dr. Rhodes on 09-29-2022 Mucus Ql (Urine sed) 0 SEEN /hpf [facility] Nitrite Test strip Ql (U)Ord ered By: Dr. Rhodes on 09-29-2022 Nitrite Ql (U) Negative Negative [facility] No Panel InformationOrdered By: Dr. Rhodes on 09-29-2022 Estimated GFR (MDRD) Amer 90 mL/min >60 [facility] Comment on above: GFR Calc Estimated GFR (MDRD) Non-Af Amer 74 mL/min >60 [facility] Comment on above: Non- GFR Calc Thyroid Stimulating Hormone (TSH) 2.09 uIU/mL 0.358-3.74 [facility] Vitamin D 25-Hydroxy 31.5 ng/mL [facility] Comment on above: Vitamin D 25(OH) Sta tus Range Deficiency <20 ng/mL (50nmol/L) Insufficiency 20 - 30 ng/mL (50 - 75 nmol/L) Sufficiency 30 - 100 ng/mL (75 - 250 nmol/L) Toxicity >100 ng/mL (>250 nmol/L) Platelets bldOrdered By: Dr. Rhodes on 09-29-2022 Platelets (Bld) [#/Vol] 254 10*3/uL 150-450 [facility] Protein Test strip Ql (U)Ord ered By: Dr. Rhodes on 09-29-2022 Protein Ql (U) Negative Negative [facility] Serum or plasma albumin rubina urement (mass/volume)Ordered By: Dr. Rhodes on 09-29-2022 Albumin [Mass/Vol] 3.8 g/dL 3.2-5.0 [facility] Serum or plasma albumin/glob ulin mass ratioOrdered By: Dr. Rhodes on 09-29-2022 Albumin/Globulin [Mass ratio] 1.3 {ratio} 0.9-2.4 [facility] Serum or plasma calcium rubina urement (mass/volume)Ordered By: Dr. Rhodes on 09-29-2022 Calcium [Mass/Vol] 9.1 mg/dL 8.5-10.1 [facility] Serum or plasma cholesterol in HDL measurement (mass/volume)Ordered By: Dr. Rhodes on 09-29-2022 Cholesterol in HDL [Mass/Vol] 69 mg/dL >40 [facility] Comment on above: The drugs N-Acetylcy steine and Metamizole may falsely depress this assay. Reference Range HDL <40 mg/dL Low HDL Cholesterol HDL >or= 60 mg/dL High HDL Cholesterol Serum or plasma cholesterol in VLDL measurement (mass/volume)Ordered By: Dr. Rhodes on 09-29-2022 Cholesterol in VLDL [Mass/Vol] 40 mg/dL 5-40 [facility] Serum or plasma creatinine m easurement (mass/volume)Ordered By: Dr. Rhodes on 09-29-2022 Creatinine [Mass/Vol] 0.83 mg/dL 0.55-1.02 [facility] Comment on above: The validity of the calculated GFR & GFRAA in patients over 70 years has not been determined. Clinical correlation is essential. Serum or plasma low density lipoprotein (LDL) cholesterol measurement (mass/volume)Ordered By: Dr. Rhodes on 09-29-2022 Cholesterol in LDL [Mass/Vol] 112 mg/dL 0-130 [facility] Serum or plasma urea nitroge n measurement (mass/volume)Ordered By: Dr. Rhodes on 09-29-2022 Urea nitrogen [Mass/Vol] 30 mg/dL 7-18 [facility] Squamous epithelial cells de tection in urine sediment by light microscopyOrdered By: Dr. Rhodes on 09-29-2022 Epithelial cells.squamous LM Ql (Urine sed) 0-5 SEEN /hpf 5-10 [facility] Thin prep Papanicolaou smear with manual screeningOrdered By: Dr. Rhodes on 09-29-2022 Thin prep Papanicolaou smear with manual screening 14 U/L 15-37 [facility] Thin prep Papanicolaou smear with manual screening 6 5-15 [facility] Urine blood detectionOrdered By: Dr. Rhodes on 09-29-2022 RBC Ql (U) Negative Negative [facility] RBC Ql (U) 0 SEEN /hpf 0-5 [facility] Urine clarityOrdered By: Dr. Rhodes on 09-29-2022 Clarity (U) Clear Clear [facility] Urine color determinationOrd ered By: Dr. Rhodes on 09-29-2022 Color (U) Yellow Yellow [facility] Urine glucose detectionOrder ed By: Dr. Rhodes on 09-29-2022 Glucose Ql (U) Normal mg/dl Normal [facility] Urine leukocyte esterase det ection by dipstickOrdered By: Dr. Rhodes on 09-29-2022 Leukocyte esterase Test strip Ql (U) 25 /ul Negative [facility] Urine pHOrdered By: Dr. Alex muse on 09-29-2022 pH (U) 5.0 [pH] 5.0 - 8.0 [facility] Urine sediment bacteria coun t by microscopy (number/high power field)Ordered By: Dr. Rhodes on 09-29-2022 Bacteria LM.HPF (Urine sed) [#/Area] 1 /[HPF] None Seen [facility] Urine specific gravity measu rementOrdered By: Dr. Rhodes on 09-29-2022 Specific gravity (U) [Rel density] 1.025 1.002-1.030 [facility] Urobilinogen Auto test strip Ql (U)Ordered By: Dr. Rhodes on 09-29-2022 Urobilinogen Ql (U) Normal mg/dl Normal [facility] Whole blood hemoglobin A1c/t otal hemoglobin ratio (mass fraction)Ordered By: Dr. Rhodes on 09-29-2022 HbA1c (Bld) [Mass fraction] 6.0 % 3.8-5.6 [facility] Comment on above: Normal < 5.7 % Predi abetic 5.7 - 6.4 % Diabetic >or= 6.5 % Please note range changes. Culture, urineOrdered By: Dr Azeb Workman on 08-19-2022 Bacteria identified Cx Nom (U) Positive [facility] Absolute lymphocyte counton 06-04-2022 Lymphocytes Auto (Unsp spec) [#/Vol] 1.69 10*3/uL 0.83-4.51 [facility] Work Phone: Basophil percentageon 2021 Basophil percentage 0 SEEN /hpf 0-5 [facility] Work Phone: Basophils/100 WBC (Bld) 0.9 % 0-1 [facility] Work Phone: Bilirubin [Mass/Vol] 0.50 mg/dL 0.20-1.00 [facility] Work Phone: Comment on above: For patients on eltr ombopag therapy, use of Dimension [place] TBIL is not recommended. Chloride [Moles/Vol] 105 mmol/L 98-107 [facility] Work Phone: Cholesterol [Mass/Vol] 176 mg/dL <200 [facility] Work Phone: [phone] Comment on above: <200 mg/dL Desirable 200-240 mg/dL Borderline >240 mg/dL High Risk Eosinophils/100 WBC (Bld) 3.9 % 0-5 [facility] Work Phone: [phone] Glucose [Mass/Vol] 112 mg/dL 74-106 [facility] Work Phone: Comment on above: Fasting Glucose resu lt from 100 to 125 mg/dL suggests IMPAIRED HOMEOSTASIS per A.D.A. criteria. Neutrophils (Bld) [#/Vol] 2.1 10*3/uL 2.0-7.7 [facility] Work Phone: Neutrophils/100 WBC (Bld) 48.8 % 47-70 [facility] Work Phone: [phone] Potassium [Moles/Vol] 3.5 mmol/L 3.5-5.1 [facility] Work Phone: Protein [Mass/Vol] 7.3 g/dL 6.4-8.2 [facility] Work Phone: [phone] Sodium [Moles/Vol] 140 mmol/L 136-145 [facility] Work Phone: [phone] Triglyceride [Mass/Vol] 105 mg/dL <199 [facility] Work Phone: Comment on above: The drugs N-Acetylcy steine and Metamizole may falsely depress this assay.Serum Triglycerides Reference Interval Normal <150 mg/dL Borderline high 150 - 199 mg/dL High 200 - 499 mg/dL Very High > or = 500 mg/dL WBC (Bld) [#/Vol] 4.4 10*3/uL 4.4-11.0 [facility] Work Phone: Bilirubin Test strip Ql (U)o n 06-04-2022 Bilirubin Ql (U) Negative Negative [facility] Work Phone: Blood erythrocytes count (nu mber/volume)on 06-04-2022 RBC (Bld) [#/Vol] 4.95 10*6/uL 4.2-5.4 [facility] Work Phone: Blood hemoglobin measurement (mass/volume)on 06-04-2022 Hemoglobin (Bld) [Mass/Vol] 14.0 g/dL 12.0-15.0 [facility] Work Phone: Blood lymphocytes/100 leukoc yteson 06-04-2022 Lymphocytes/100 WBC (Bld) 38.6 % 19-41 [facility] Work Phone: [phone] Blood monocytes/100 leukocyt eson 06-04-2022 Monocytes/100 WBC (Bld) 7.3 % 0-10 [facility] Work Phone: Blood platelet mean volumeon 06-04-2022 Platelet mean volume (Bld) [Entitic vol] 9.1 fL 6.2-12.0 [facility] Work Phone: Determination of erythrocyte mean corpuscular volume (MCV)on 06-04-2022 MCV (RBC) [Entitic vol] 86.5 fL 81-99 [facility] Work Phone: Hematocrit Auto (Bld) [Volum e fraction]on 06-04-2022 Hematocrit (Bld) [Volume fraction] 42.8 % 37-47 [facility] Work Phone: Ketones Test strip Ql (U)on 06-04-2022 Ketones Ql (U) Negative Negative [facility] Work Phone: Laboratory - Chemistry and C hemistry - challengeon 06-04-2022 ALP [Catalytic activity/Vol] 107 U/L 45-117 [facility] Work Phone: ALT [Catalytic activity/Vol] 21 U/L 13-56 [facility] Work Phone: CO2 [Moles/Vol] 28.0 mmol/L 21.0-32.0 [facility] Work Phone: Globulin (S) [Mass/Vol] 3.6 g/dL 2.2-4.2 [facility] Work Phone: Urea nitrogen/Creatinine [Mass ratio] 22.8 mg/mg 10-20 [facility] Work Phone: [phone] Laboratory - Hematology and Cell countson 06-04-2022 Erythrocyte distribution width (RBC) [Entitic vol] 43.2 fL 35.1-43.9 [facility] Work Phone: [phone] Erythrocyte distribution width (RBC) [Ratio] 13.7 % 11.6-14.6 [facility] Work Phone: [phone] Immature granulocytes/100 WBC (Bld) 0.500 % 0.0-0.9 [facility] Work Phone: [phone] Comment on above: IG% - Immature Granu locytes (promyelocytes, myelocytes and metamyelocytes) > 1% indicates that a LEFT SHIFT is Present. MCH (RBC) [Entitic mass] 28.3 pg 27.0-32.0 [facility] Work Phone: [phone] Nucleated RBC/100 WBC (Bld) [Ratio] 0 % 0-5 [facility] Work Phone: [phone] MCHC Auto (RBC) [Mass/Vol]on 06-04-2022 MCHC (RBC) [Mass/Vol] 32.7 g/dL 32-36 [facility] Work Phone: [phone] Mucus LM Ql (Urine sed)on Mucus Ql (Urine sed) 0 SEEN /hpf [facility] Work Phone: [phone] Nitrite Test strip Ql (U)on 06-04-2022 Nitrite Ql (U) Negative Negative [facility] Work Phone: [phone] Panel Informationon 06-04 Estimated GFR (MDRD) Amer 95 mL/min >60 [facility] Work Phone: [phone] Comment on above: GFR Calc Estimated GFR (MDRD) Non-Af Amer 78 mL/min >60 [facility] Work Phone: [phone] Comment on above: Non- GFR Calc Vitamin D 25-Hydroxy 27.7 ng/mL [facility] Work Phone: Comment on above: Vitamin D 25(OH) Sta tus Range Deficiency <20 ng/mL (50nmol/L) Insufficiency 20 - 30 ng/mL (50 - 75 nmol/L) Sufficiency 30 - 100 ng/mL (75 - 250 nmol/L) Toxicity >100 ng/mL (>250 nmol/L) Platelets bldon 06-04-2022 Platelets (Bld) [#/Vol] 245 10*3/uL 150-450 [facility] Work Phone: [phone] Protein Test strip Ql (U)on 06-04-2022 Protein Ql (U) Negative Negative [facility] Work Phone: Serum or plasma albumin rubina urement (mass/volume)on 06-04-2022 Albumin [Mass/Vol] 3.7 g/dL 3.2-5.0 [facility] Work Phone: Serum or plasma albumin/glob ulin mass ratioon 06-04-2022 Albumin/Globulin [Mass ratio] 1.0 {ratio} 0.9-2.4 [facility] Work Phone: Serum or plasma calcium rubina urement (mass/volume)on 06-04-2022 Calcium [Mass/Vol] 9.2 mg/dL 8.5-10.1 [facility] Work Phone: Serum or plasma cholesterol in HDL measurement (mass/volume)on 06-04-2022 Cholesterol in HDL [Mass/Vol] 76 mg/dL >40 [facility] Work Phone: Comment on above: The drugs N-Acetylcy steine and Metamizole may falsely depress this assay. Reference Range HDL <40 mg/dL Low HDL Cholesterol HDL >or= 60 mg/dL High HDL Cholesterol Serum or plasma cholesterol in VLDL measurement (mass/volume)on 06-04-2022 Cholesterol in VLDL [Mass/Vol] 21 mg/dL 5-40 [facility] Work Phone: [phone] Serum or plasma creatinine m easurement (mass/volume)on 06-04-2022 Creatinine [Mass/Vol] 0.79 mg/dL 0.55-1.02 [facility] Work Phone: Comment on above: The validity of the calculated GFR & GFRAA in patients over 70 years has not been determined. Clinical correlation is essential. Serum or plasma low density lipoprotein (LDL) cholesterol measurement (mass/volume)on 06-04-2022 Cholesterol in LDL [Mass/Vol] 79 mg/dL 0-130 [facility] Work Phone: Serum or plasma urea nitroge n measurement (mass/volume)on 06-04-2022 Urea nitrogen [Mass/Vol] 18 mg/dL 7-18 [facility] Work Phone: Squamous epithelial cells de tection in urine sediment by light microscopyon 06-04-2022 Epithelial cells.squamous LM Ql (Urine sed) 5-10 SEEN /hpf 5-10 [facility] Work Phone: Thin prep Papanicolaou smear with manual screeningon 06-04-2022 Thin prep Papanicolaou smear with manual screening 11 U/L 15-37 [facility] Work Phone: Thin prep Papanicolaou smear with manual screening 7 5-15 [facility] Work Phone: Urine blood detectionon RBC Ql (U) Negative Negative [facility] Work Phone: RBC Ql (U) 0 SEEN /hpf 0-5 [facility] Work Phone: Urine clarityon 06-04-2022 Clarity (U) Clear Clear [facility] Work Phone: Urine color determinationon 06-04-2022 Color (U) Yellow Yellow [facility] Work Phone: Urine glucose detectionon Glucose Ql (U) Normal mg/dl Normal [facility] Work Phone: Urine leukocyte esterase det ection by dipstickon 06-04-2022 Leukocyte esterase Test strip Ql (U) Negative Negative [facility] Work Phone: Urine pHon 06-04-2022 pH (U) 7.0 [pH] 5.0 - 8.0 [facility] Work Phone: Urine sediment bacteria coun t by microscopy (number/high power field)on 06-04-2022 Bacteria LM.HPF (Urine sed) [#/Area] 1 /[HPF] None Seen [facility] Work Phone: Urine specific gravity measu rementon 06-04-2022 Specific gravity (U) [Rel density] 1.010 1.002-1.030 [facility] Work Phone: [phone] Urobilinogen Auto test strip Ql (U)on 06-04-2022 Urobilinogen Ql (U) Normal mg/dl Normal [facility] Work Phone: Whole blood hemoglobin A1c/t otal hemoglobin ratio (mass fraction)on 06-04-2022 HbA1c (Bld) [Mass fraction] 6.0 % 3.8-5.6 [facility] Work Phone: Comment on above: Normal < 5.7 % Predi abetic 5.7 - 6.4 % Diabetic >or= 6.5 % Please note range changes. Cervical or vagninal specime n microscopic examination by cytology stain (reported ason 04-21-2022 Cytology report Cyto stain Doc (Cvx/Vag) Comment . [facility] Work Phone: Comment on above: The Pap smear is a s creening test designed to aid in thedetection of premalignant and malignant conditions of theuterine cervix. It is not a diagnostic procedure andshould not be used as the sole means of detecting cervicalcancer. Both false-positive and false-negative reports dooccur. Laboratory - Cytologyon 03-28 Safety Consultant Cyto stain Nom (Cvx/Vag) [ID] Comment . [facility] Work Phone: Comment on above: Sylvie Mcfarlane, Cyto technologist (ASCP) Laboratory - Miscellaneous t estson 04-21-2022 Service comment (Unsp spec) [Interp] TNP [facility] Work Phone: Comment on above: Test not performedTh e Thin Prep(R) Strategy Associate was unable to read this specimen.Therefore a manual review was performed. Service comment (Unsp spec) [Interp] . . [facility] Work Phone: No Panel Informationon 04-21 Human Papillomavirus Screen Comment . [facility] Work Phone: [phone] Comment on above: The HPV DNA reflex c rosa were not met with this specimenresult therefore, no HPV testing was performed.Performed at: [address] [id number] Director: Patt Nielson MD, Phone: [phone] Pathology report final diagnosis Narrative Comment . [facility] Work Phone: Comment on above: NEGATIVE FOR INTRAEP ITHELIAL LESION OR MALIGNANCY. Absolute lymphocyte counton 01-09-2022 Lymphocytes Auto (Unsp spec) [#/Vol] 1.46 10*3/uL 0.83-4.51 [facility] Work Phone: Basophil percentageon 2021 Basophils/100 WBC (Bld) 1.0 % 0-1 [facility] Work Phone: Bilirubin [Mass/Vol] 0.60 mg/dL 0.20-1.00 [facility] Work Phone: Comment on above: For patients on eltr ombopag therapy, use of Dimension [place] TBIL is not recommended. Chloride [Moles/Vol] 105 mmol/L 98-107 [facility] Work Phone: Cholesterol [Mass/Vol] 155 mg/dL <200 [facility] Work Phone: Comment on above: <200 mg/dL Desirable 200-240 mg/dL Borderline >240 mg/dL High Risk Eosinophils/100 WBC (Bld) 4.8 % 0-5 [facility] Work Phone: [phone] Glucose [Mass/Vol] 91 mg/dL 74-106 [facility] Work Phone: [phone] Neutrophils (Bld) [#/Vol] 2.0 10*3/uL 2.0-7.7 [facility] Work Phone: Neutrophils/100 WBC (Bld) 49.0 % 47-70 [facility] Work Phone: [phone] Potassium [Moles/Vol] 3.4 mmol/L 3.5-5.1 [facility] Work Phone: [phone] Protein [Mass/Vol] 7.2 g/dL 6.4-8.2 [facility] Work Phone: [phone] Sodium [Moles/Vol] 141 mmol/L 136-145 [facility] Work Phone: [phone] Triglyceride [Mass/Vol] 68 mg/dL <199 [facility] Work Phone: [phone] Comment on above: The drugs N-Acetylcy steine and Metamizole may falsely depress this assay.Serum Triglycerides Reference Interval Normal <150 mg/dL Borderline high 150 - 199 mg/dL High 200 - 499 mg/dL Very High > or = 500 mg/dL WBC (Bld) [#/Vol] 4.1 10*3/uL 4.4-11.0 [facility] Work Phone: [phone] Blood erythrocytes count (nu mber/volume)on 01-09-2022 RBC (Bld) [#/Vol] 4.78 10*6/uL 4.2-5.4 [facility] Work Phone: [phone] Blood hemoglobin measurement (mass/volume)on 01-09-2022 Hemoglobin (Bld) [Mass/Vol] 13.7 g/dL 12.0-15.0 [facility] Work Phone: [phone] Blood lymphocytes/100 leukoc yteson 01-09-2022 Lymphocytes/100 WBC (Bld) 35.3 % 19-41 [facility] Work Phone: [phone] Blood monocytes/100 leukocyt eson 01-09-2022 Monocytes/100 WBC (Bld) 9.7 % 0-10 [facility] Work Phone: [phone] Blood platelet mean volumeon 01-09-2022 Platelet mean volume (Bld) [Entitic vol] 9.1 fL 6.2-12.0 [facility] Work Phone: [phone] Determination of erythrocyte mean corpuscular volume (MCV)on 01-09-2022 MCV (RBC) [Entitic vol] 85.8 fL 81-99 [facility] Work Phone: [phone] Hematocrit Auto (Bld) [Volum e fraction]on 01-09-2022 Hematocrit (Bld) [Volume fraction] 41.0 % 37-47 [facility] Work Phone: [phone] Laboratory - Chemistry and C hemistry - challengeon 01-09-2022 ALP [Catalytic activity/Vol] 102 U/L 45-117 [facility] Work Phone: [phone] ALT [Catalytic activity/Vol] 25 U/L 13-56 [facility] Work Phone: [phone] CO2 [Moles/Vol] 31.0 mmol/L 21.0-32.0 [facility] Work Phone: [phone] Cobalamin (Vitamin B12) [Mass/Vol] 388 pg/mL 211-911 [facility] Work Phone: [phone] Free T4 [Mass/Vol] 1.01 ng/dL 0.76-1.46 [facility] Work Phone: [phone] Globulin (S) [Mass/Vol] 3.5 g/dL 2.2-4.2 [facility] Work Phone: [phone] Urea nitrogen/Creatinine [Mass ratio] 23.9 mg/mg 10-20 [facility] Work Phone: [phone] Laboratory - Hematology and Cell countson 01-09-2022 Erythrocyte distribution width (RBC) [Entitic vol] 42.0 fL 35.1-43.9 [facility] Work Phone: [phone] Erythrocyte distribution width (RBC) [Ratio] 13.4 % 11.6-14.6 [facility] Work Phone: [phone] Immature granulocytes/100 WBC (Bld) 0.200 % 0.0-0.9 [facility] Work Phone: [phone] Comment on above: IG% - Immature Granu locytes (promyelocytes, myelocytes and metamyelocytes) > 1% indicates that a LEFT SHIFT is Present. MCH (RBC) [Entitic mass] 28.7 pg 27.0-32.0 [facility] Work Phone: [phone] Nucleated RBC/100 WBC (Bld) [Ratio] 0 % 0-5 [facility] Work Phone: [phone] MCHC Auto (RBC) [Mass/Vol]on 01-09-2022 MCHC (RBC) [Mass/Vol] 33.4 g/dL 32-36 [facility] Work Phone: [phone] Panel Informationon 01-09 Estimated GFR (MDRD) Amer 107 mL/min >60 [facility] Work Phone: [phone] Comment on above: GFR Calc Estimated GFR (MDRD) Non-Af Amer 88 mL/min >60 [facility] Work Phone: [phone] Comment on above: Non- GFR Calc Thyroid Stimulating Hormone (TSH) 1.02 uIU/mL 0.358-3.74 [facility] Work Phone: [phone] Vitamin D 25-Hydroxy 36.5 ng/mL [facility] Work Phone: [phone] Comment on above: Vitamin D 25(OH) Sta tus Range Deficiency <20 ng/mL (50nmol/L) Insufficiency 20 - 30 ng/mL (50 - 75 nmol/L) Sufficiency 30 - 100 ng/mL (75 - 250 nmol/L) Toxicity >100 ng/mL (>250 nmol/L) Platelets bldon 01-09-2022 Platelets (Bld) [#/Vol] 276 10*3/uL 150-450 [facility] Work Phone: [phone] Serum or plasma albumin rubina urement (mass/volume)on 01-09-2022 Albumin [Mass/Vol] 3.7 g/dL 3.2-5.0 [facility] Work Phone: [phone] Serum or plasma albumin/glob ulin mass ratioon 01-09-2022 Albumin/Globulin [Mass ratio] 1.1 {ratio} 0.9-2.4 [facility] Work Phone: [phone] Serum or plasma calcium rubina urement (mass/volume)on 01-09-2022 Calcium [Mass/Vol] 9.0 mg/dL 8.5-10.1 [facility] Work Phone: [phone] Serum or plasma cholesterol in HDL measurement (mass/volume)on 01-09-2022 Cholesterol in HDL [Mass/Vol] 75 mg/dL >40 [facility] Work Phone: Comment on above: The drugs N-Acetylcy steine and Metamizole may falsely depress this assay. Reference Range HDL <40 mg/dL Low HDL Cholesterol HDL >or= 60 mg/dL High HDL Cholesterol Serum or plasma cholesterol in VLDL measurement (mass/volume)on 01-09-2022 Cholesterol in VLDL [Mass/Vol] 14 mg/dL 5-40 [facility] Work Phone: [phone] Serum or plasma creatinine m easurement (mass/volume)on 01-09-2022 Creatinine [Mass/Vol] 0.71 mg/dL 0.55-1.02 [facility] Work Phone: Comment on above: The validity of the calculated GFR & GFRAA in patients over 70 years has not been determined. Clinical correlation is essential. Serum or plasma low density lipoprotein (LDL) cholesterol measurement (mass/volume)on 01-09-2022 Cholesterol in LDL [Mass/Vol] 66 mg/dL 0-130 [facility] Work Phone: [phone] Serum or plasma urea nitroge n measurement (mass/volume)on 01-09-2022 Urea nitrogen [Mass/Vol] 17 mg/dL 7-18 [facility] Work Phone: [phone] Thin prep Papanicolaou smear with manual screeningon 01-09-2022 Thin prep Papanicolaou smear with manual screening 19 U/L 15-37 [facility] Work Phone: [phone] Thin prep Papanicolaou smear with manual screening 5 5-15 [facility] Work Phone: [phone] Whole blood hemoglobin A1c/t otal hemoglobin ratio (mass fraction)on 01-09-2022 HbA1c (Bld) [Mass fraction] 5.8 % 3.8-5.6 [facility] Work Phone: Comment on above: Normal < 5.7 % Predi abetic 5.7 - 6.4 % Diabetic >or= 6.5 % Please note range changes. Culture, urine Bacteria identified Cx Nom (U) Positive [facility] Work Phone: Vital Signs Date Time Vital Sign Value Performing Clinician Sgi ehsany 08-03-2023 09:30-0500 Body height 157.48 cm [facility] 08-03-2023 09:30-0500 Body weight 87.81 kg [facility] 07-28-2023 00:14-0400 Body weight 89.53 kg [facility] 07-20-2023 08:30-0400 Body height [facility].48 cm [facility] [facility] 07-20-2023 08:30-0400 Body weight 89.53 kg [facility] 06-16-2023 11:30-0400 Body height 157.48 cm [facility] 06-16-2023 11:30-0400 Body weight 90.17 kg [facility] 05-18-2023 11:30-0400 Body height 157.48 cm [facility] 05-18-2023 11:30-0400 Body weight 91.89 kg [facility] 04-07-2023 09:54-0400 Body temperature 98 [degF] [facility] 04-07-2023 09:54-0400 Diastolic blood pressure 81 mm[Hg] [facility] 04-07-2023 09:54-0400 Heart rate 57 /min [facility] 04-07-2023 09:54-0400 Respiratory rate 16 /min [facility] 04-07-2023 09:54-0400 SaO2% (BldA) [Mass fraction] 95 % [facility] 04-07-2023 09:54-0400 Systolic blood pressure 146 mm[Hg] [facility] 04-07-2023 07:12-0400 Body height 157.48 cm [facility] 04-07-2023 07:12-0400 Body mass index (BMI) [Ratio] 37 kg/m2 [facility] 04-07-2023 07: Body weight 92 kg [facility] Encounters Encounter Date Encounter Type Care Provider Facility Start: 07-30-2025 End: 07-30-2025 ambulatory Raffy Rhodes Facility:[facility] Start: 07-26-2025 End: 07-26-2025 ambulatory Raffy Rhodes Facility:[facility] Start: 07-18-2025 End: 07-18-2025 ambulatory Raffy Rhodes Facility:[facility] Start: 02-22-2025 End: 02-22-[address] Raffy Rhodes MD Work Phone: [facility] Work Phone: Start: 02-22-2025 End: 02-22-[address] Raffy Rhodes MD -Laboratory [facility] Start: 02-21-2025 End: 02-22-[address] Raffy Rhodes MD Work Phone: [facility] Work Phone: Start: 02-21-2025 End: 02-21-[address] Raffy Rhodes MD -Laboratory [facility] Start: 02-21-2025 End: 02-21-2025 ambulatory Raffy Rhodes Facility:[facility] Start: 09-28-2024 End: 09-28-2024 ambulatory Raffy Rhodes Facility:[facility] Start: 08-17-2023 End: 08-17-2023 ambulatory [facility] Work Phone: Start: 08-17-2023 End: 08-17-2023 [facility] Start: 08-09-2023 End: 08-09-2023 ambulatory [facility] Work Phone: Start: 08-09-2023 End: 08-09-2023 [facility] Start: 08-03-2023 End: 08-26-2023 ambulatory [facility] Work Phone: Start: 08-03-2023 End: 08-26-2023 Discharged Recurring [facility] Work Phone: Start: 08-03-2023 Registered Recurring [facility] Work Phone: Start: 07-20-2023 End: 07-27-2023 ambulatory [facility] Work Phone: Start: 07-20-2023 End: 07-27-2023 Discharged Recurring [facility] Work Phone: Start: 06-16-2023 End: 06-26-2023 ambulatory [facility] Work Phone: Start: 06-16-2023 End: 06-26-2023 Discharged Recurring [facility] Work Phone: Start: 05-18-2023 End: 05-27-2023 ambulatory [facility] Work Phone: Start: 05-18-2023 End: 05-27-2023 Discharged Recurring [facility] Work Phone: Start: 04-30-2023 End: 04-30-2023 ambulatory [facility] Work Phone: Start: 04-30-2023 End: 04-30-2023 Patient encounter procedure [facility]-Outpatient Breast Imaging Work Phone: Start: 04-07-2023 End: 04-07-2023 Admission to same day surgery center [facility] Start: 09-29-2022 End: 09-29-2022 ambulatory [facility] Work Phone: Start: 09-29-2022 End: 09-29-2022 Patient encounter procedure [facility] Start: 08-17-2022 End: 08-17-2022 ambulatory [facility] Work Phone: Start: 08-17-2022 End: 08-17-2022 Patient encounter procedure [facility]-Laboratory, Specimen Start: 06-04-2022 End: 06-04-2022 ambulatory [facility] Work Phone: Start: 06-04-2022 End: 06-04-2022 [facility] Start: 04-21-2022 End: 04-21-2022 Patient encounter procedure [facility]-Laboratory, Specimen Start: 01-09-2022 End: 01-09-2022 [facility] Start: 10-02-2021 End: 10-02-2021 Patient encounter procedure [facility]-Outpatient Breast Imaging Start: 09-29-2021 End: 09-29-2021 Patient encounter procedure [facility]ound, [facility] Procedures Date Procedure Procedure Detail Performing [...] nr v head neck&posterior trunk ANESTH HEAD/NECK/PTRUNK [facility] Start: 04-07-2023 Insertion/rplcmt peripheral/gastric npgr INSRT/REDO PN/GASTR STIMUL [facility] Start: 04-07-[address] [facility] Start: 04-07-2023 Ambulation without limitation [facility] Start: 04-07-2023 Medication education [facility] Start: 04-07-2023 Taking patient vital signs [facility] Start: 04-07-2023 [facility] Path report.final Dx Spec [facility] Work Phone: Patient referral [facility] Work Phone: Payers Date Payer Category Payer Self-pay [id number] 2024 Self-pay [id number] 2024 Unknown [id number] 2014 Unknown [id number] Private Health Insurance [id number] Private Health Insurance [facility] [id number] Private Health Insurance [facility] [id number] Unknown [id number] Unknown [id number] Unknown [id number] 62 Unknown [id number] 62 Unknown [id number] 62 Unknown [id number] 62 Unknown [id number] Social History Date Type Detail Facility Start: 01-20-2018 End: 03-31-2023 Tobacco smoking status NHIS Unknown if ever smoked [facility] Start: 1960 Sex Assigned At Female [facility] Start: 03-31-2023 Tobacco smoking status NHIS Never smoked tobacco (finding) [facility] NEGATED: Highlighted row [facility] Medical Equipment Procedure Code [...] Assessment Result Facility 04-07-2023 Cognitive function Voice/Name [facility] Work Phone: Clinical Note 04-21-2022 Note Date & Type Note Facility 04-21-2022 Note [facility] Work Phone: Pap Smear Specimen Adequacy April 21, 2022 10:30am Comment . Satisfactory for evaluation. No endocervical component is identified. Comment on above: Satisfactory for lili luation. No endocervical component is identified. Evaluation note Note Date & Type Note Facility Evaluation note No assessment information availa ble [facility] Work Phone: Reason for referral (narrative) Note Date & Type Note Facility Reason for referral (narrative) No reason for referral information available [facility] Work Phone: Chief Complaint and Reason [...] No December 22, 2017 9:52am Power of Health Information Specialist No December 22 9:52am Advance Directive Response Recorded Date/ Time Living Will No December 22, 2017 8:52am Power of Health Information Specialist No December 22 8:52am Advance Directive Response Recorded Date/ Time Living Will No March 31, 2023 9 :14am Power of Health Information Specialist No March 31, 2023 9:14am Advance Directive Response Recorded Date/ Time Living Will No March 31, 2023 8 :14am Power of Health Information Specialist No March 31, 2023 8:14am Summary Purpose [...] Rhodes MD Primary Care Provider Active Brooke Kim , CHIEF BUSINESS OFFICER-C Attending Provider Active Team Status: Inactive Member Role Status Dates Dr. Raffy Rhodes MD Primary Care Provider Active Brookerupinder Kim , CHIEF BUSINESS OFFICER-C Attending Provider, Referr ing Provider Active Team Status: Active Member Role Status Dates Dr. Raffy Rhodes MD Primary Care Provider Active Brookerupinder Kim , CHIEF BUSINESS OFFICER-C Attending Provider, Referr ing Provider Active Team [...] ized section and content) DATE CREATED AUTHOR 08/05/2025 [facility] FOR RECORDS PERTAINING TO PATIENTS WHO ARE [...] BE BASED ON THE PRIMARY CLINICAL RECORDS. [facility] Pledge51 [facility]. provides no warranty or guarantee of the accuracy or completeness of information in this document.
[2025-08-06 12:23] LABS: Magnesium 2.0 mg/dL (1.5-2.2); Potassium 3.4 mmol/L (3.3-5.1)
== END | disposition home or self-care (01) ==
LOC: MFPLAB 10:12
PROVIDERS: PCP Family Medicine; Visit Provider Family Medicine
DX: E87.6 Hypokalemia (principal)
CPT/HCPCS: 36415; 83735; 84132